=== PATIENT | female | born 1995 | race Caucasian/White ===

== ENCOUNTER 2023-01-16 09:07 | Inpatient (IN) | payer SELFPAY ==
[2023-01-16 09:15] VITALS: BP 115/75; PULSE 140; RESP 19; TEMP 36.6; O2SAT 99; BMI 21.3
--- NOTE | 2023-01-16 09:18 | ECG_ITS ---
Test Reason : tachy Blood Pressure : / mmHG Vent. Rate : 143 BPM Atrial Rate : 143 BPM P-R Int : 126 ms QRS Dur : 078 ms QT Int : 286 ms P-R-T Axes : 062 086 040 degrees QTc Int : 441 ms Sinus tachycardia Otherwise normal ECG No previous ECGs available Referred By: Generic ED Physician Electronically Signed By:CLEMENTE GOMEZ
--- NOTE | 2023-01-16 09:34 | ED.NAVMDI ---
HPI - Nausea/Vomiting/Diarrhea General Chief complaint: Nausea/Vomiting/Diarrhea Stated complaint: vomiting, cant keep anything down Time Seen by Provider: 01/16/23 09:23 Source: patient Mode of arrival: ambulatory Limitations: no limitations History of Present Illness HPI Narrative: patient states she is anxious so its hard to eat. Patient states she is malnourished. Patient drinks alcohol everyday. MD elicited complaint: nausea and vomiting Pertinent past history: cyclical vomiting Onset (ago): day(s) Related Data Allergies Allergy/AdvReac Type Severity Reaction Status Date / Time amoxicillin Allergy Hives Verified 01/16/23 09:14 Penicillins Allergy Hives Verified 01/16/23 09:14 Review of Systems Review of Systems: Yes all other systems are reviewed and are negative Neurologic: Denies Sensory deficit (Neuro) [facility] Social History Social History Smoked in Last 30 Days: No Use of substances other than those prescribed or required for medical reasons: Yes Substance Use Type: Marijuana Substance Use Frequency: Daily Last Used Substance: Hours (ago) Advance Directives: No Advance Directives Information Provided: Yes Physical Exam Vital Signs: Vital Signs: Last Vital Signs Temp 98 F 01/16/23 09:15 Pulse 120 H 01/16/23 14:06 Resp 18 01/16/23 14:06 BP 122/77 01/16/23 14:06 Pulse Ox 99 01/16/23 14:06 O2 Del Method Room Air 01/16/23 14:06 BMI result Body Mass Index 21.3 Const: Other: very thin female anxious and tremulous, wretching Orientation/consciousness: oriented to person and patient oriented x3 Limitations: no limitations HEENT: Head: Yes normal to inspection Ears: external ears normal General nose exam: Normal external nose present Mouth: Normal oral and palatal mucosa present and oropharynx normal Throat: Yes posterior oropharynx normal Eyes: General: appearance normal, both eyes and all related structures Neck: Other: supple Neck: Yes normal visual inspection Chest: Chest palpation & inspection: normal inspection of the chest Resp: Auscultation: clear to auscultation bilaterally Cardio: Jugular venous distension: no JVD Rate: regular rate Rhythm: regular rhythm Heart sounds: S1 normal heart sound present and S2 normal heart sound present GI: Inspection: Yes normal to inspection Palpation (GI): Soft to palpation, nontender and No hepatosplenomegaly present Auscultation: normal bowel sounds : General: Yes no CVA tenderness Back/Spine/Pelvis: Back: no CVA tenderness Skin: General skin exam: no rashes or lesions noted Neuro: General: oriented to person and patient oriented x3 Cranial nerves: Yes CN's II-XII intact bilaterally Motor exam (neuro): 5/5 motor strength present throughout Sensory Exam: No Sensory deficit (Neuro) Extrem: General: Yes normal to inspection Psych: Appearance: grossly normal Course Reevaluation(s) Reevaluation #1: heart rate down to 120, BP is better, patient looks better will give another dose of phenobarbital Time: 14:15 Reevaluation #2: I spent 60 minutes of critical care, with interventions, assessments, speaking to patient, consultants, and family. Time: 14:19 Reevaluation #3: Patient sleeping currently, repeat chem 7 pending. If patient not improved will admit Time: 15:58 Medications Administered Discontinued Medications Generic Name Dose Route Start Last Admin Trade Name Dago PRN Reason Stop Dose Admin Sodium Chloride 1,000 mls @ 999 mls/hr 01/16/23 09:45 01/16/23 14:12 Ns IVCONT 01/16/23 11:45 999 mls/hr .Q1H1M SURYA Administration Ondansetron HCl 4 mg 01/16/23 09:43 01/16/23 11:27 Ondansetron Hcl 4 Mg/2 Ml Vial IVPUSH 01/16/23 09:44 4 mg ONCE ONE Administration Phenobarbital Sodium 65 mg 01/16/23 09:37 01/16/23 11:28 Phenobarbital Sodium 65 Mg/Ml Vial IVPUSH 01/16/23 09:38 65 mg ONCE ONE Administration Phenobarbital Sodium 65 mg 01/16/23 14:16 01/16/23 14:34 Phenobarbital Sodium 65 Mg/Ml Vial IVPUSH 01/16/23 14:17 65 mg ONCE ONE Administration Medical Decision Making Differential Diagnosis Differential Diagnoses: The differential diagnosis associated with the presentation includes (alcohol withdrawal, anxiety, cyclical vomiting, anorexia) Admission/Observation Consideration of admission/observation: Escalation of care including admission/observation considered (upon arrival patient was considered for admission) Lab Data MDM Lab Attestation statement: I reviewed the patient's lab results. (elevated wbc likely to due stress, bicarbonate 9, creatinine 1.38 all noted) 01/16/23 09:57 Labs: Lab Results 01/16/23 01/16/23 01/16/23 Range/Units 09:57 09:57 14:09 WBC 18.2 H (4.8-10.8) X10*3/uL RBC 4.83 (4.20-5.50) X10*6/uL Hgb 15.8 (12.0-16.0) g/dl Hct 47.7 H (37.0-47.0) % MCV 98.8 H (80.0-98.0) fL MCH 32.7 (27.0-33.0) pg MCHC 33.1 (31.0-35.0) g/dl RDW 12.6 (11.0-16.0) % Plt Count 224 (160-400) X10*3/uL MPV 9.5 (9.4-12.3) fL Immature Gran % (Auto) 0.7 H (0.0-0.4) % Neut % (Auto) 88.6 H (45-73) % Lymph % (Auto) 2.3 L (20-40) % [place] % (Auto) 8.2 (2-11) % Eos % (Auto) 0.0 (0-4) % Baso % (Auto) 0.2 (0-2) % Lymph # (Auto) 0.4 L (1.2-4.9) X10*3/uL [place] # (Auto) 1.5 H (0.1-1.2) X10*3/uL Eos # (Auto) 0.0 (0.0-0.4) X10*3/uL Baso # (Auto) 0.0 (0.0-0.2) X10*3/uL Abs Immat Gran (auto) 0.12 H (0.00-0.03) X10*3/uL Absolute Neuts (auto) 16.1 H (2.0-8.3) x10*3/uL Absolute Nucleated RBC 0.000 (0.0-0.012) X10*3/uL Nucleated RBC % (auto) 0.0 (0.0-0.2) /100WBC Sodium 138 (135-145) mmol/L Potassium 4.3 (3.3-5.1) mmol/L Chloride 96 (96-108) mmol/L Carbon Dioxide 9 L* (22-29) mmol/L Anion Gap 37 H (12-20) BUN 14 (9-16) mg/dL Creatinine 1.38 (0.5-1.4) mg/dL Estim Creat Clear Calc 50.6 Estimated GFR 46 Random Glucose 160 H (60-115) mg/dL Calcium (8.4-10.2) mg/dL Total Bilirubin 1.2 H (0.0-1.0) mg/dL Direct Bilirubin 0.5 (0.0-0.5) mg/dL AST 145 H (5-31) U/L ALT 122 H (0-31) U/L Alkaline Phosphatase 89 (39-117) U/L Total Protein 9.3 H (6.5-8.0) g/dL Albumin 5.8 H (3.5-5.0) g/dL Lipase 55 (8-78) U/L Urine Color Yellow Urine Appearance Clear Urine pH 6.0 (5.0-9.0) Ur Specific [place] 1.025 (1.005-1.025) Urine Protein 300 (3+) H (Neg-Trace) mg/dL Urine Glucose (UA) Negative (Negative) mg/dL Urine Ketones >=160 (Negative) mg/dL Urine Blood Small (1+) H (Negative) Urine Nitrite Negative (Negative) Ur Leukocyte Esterase Negative (Negative) Urine RBC 0-2 (0-2) /HPF Urine WBC 0-5 (0-5) /HPF Ur Squamous Epith Cells 0-2 (0-2) /HPF Urine Bacteria None Seen (None Seen) Hyaline Casts 11-20 (0-2) /LPF Urine Test (NEGATIVE) Urine Opiates Screen (Not Detect) Urine Fentanyl Screen (Not Detect) Ur Barbiturates Screen (Not Detect) Ur Phencyclidine Scrn (Not Detect) Ur Amphetamines Screen (Not Detect) U Benzodiazepines Scrn (Not Detect) Urine Cocaine Screen (Not Detect) U Marijuana (THC) Screen (Not Detect) Ethyl Alcohol < 10 mg/dL 01/16/23 01/16/23 01/16/23 Range/Units 14:09 14:09 15:26 WBC (4.8-10.8) X10*3/uL RBC (4.20-5.50) X10*6/uL Hgb (12.0-16.0) g/dl Hct (37.0-47.0) % MCV (80.0-98.0) fL MCH (27.0-33.0) pg MCHC (31.0-35.0) g/dl RDW (11.0-16.0) % Plt Count (160-400) X10*3/uL MPV (9.4-12.3) fL Immature Gran % (Auto) (0.0-0.4) % Neut % (Auto) (45-73) % Lymph % (Auto) (20-40) % [place] % (Auto) (2-11) % Eos % (Auto) (0-4) % Baso % (Auto) (0-2) % Lymph # (Auto) (1.2-4.9) X10*3/uL [place] # (Auto) (0.1-1.2) X10*3/uL Eos # (Auto) (0.0-0.4) X10*3/uL Baso # (Auto) (0.0-0.2) X10*3/uL Abs Immat Gran (auto) (0.00-0.03) X10*3/uL Absolute Neuts (auto) (2.0-8.3) x10*3/uL Absolute Nucleated RBC (0.0-0.012) X10*3/uL Nucleated RBC % (auto) (0.0-0.2) /100WBC Sodium 138 (135-145) mmol/L Potassium 4.9 (3.3-5.1) mmol/L Chloride 107 (96-108) mmol/L Carbon Dioxide 11 L (22-29) mmol/L Anion Gap 25 H (12-20) BUN 12 (9-16) mg/dL Creatinine 1.07 (0.5-1.4) mg/dL Estim Creat Clear Calc 65.3 Estimated GFR > 60 Random Glucose 111 (60-115) mg/dL Calcium 8.8 (8.4-10.2) mg/dL Total Bilirubin (0.0-1.0) mg/dL Direct Bilirubin (0.0-0.5) mg/dL AST (5-31) U/L ALT (0-31) U/L Alkaline Phosphatase (39-117) U/L Total Protein (6.5-8.0) g/dL Albumin (3.5-5.0) g/dL Lipase (8-78) U/L Urine Color Urine Appearance Urine pH (5.0-9.0) Ur Specific [place] (1.005-1.025) Urine Protein (Neg-Trace) mg/dL Urine Glucose (UA) (Negative) mg/dL Urine Ketones (Negative) mg/dL Urine Blood (Negative) Urine Nitrite (Negative) Ur Leukocyte Esterase (Negative) Urine RBC (0-2) /HPF Urine WBC (0-5) /HPF Ur Squamous Epith Cells (0-2) /HPF Urine Bacteria (None Seen) Hyaline Casts (0-2) /LPF Urine Test NEGATIVE (NEGATIVE) Urine Opiates Screen Not Detected (Not Detect) Urine Fentanyl Screen Not Detected (Not Detect) Ur Barbiturates Screen POSITIVE H (Not Detect) Ur Phencyclidine Scrn Not Detected (Not Detect) Ur Amphetamines Screen Not Detected (Not Detect) U Benzodiazepines Scrn Not Detected (Not Detect) Urine Cocaine Screen Not Detected (Not Detect) U Marijuana (THC) Screen POSITIVE H (Not Detect) Ethyl Alcohol mg/dL Independent Interpretation I performed an independent interpretation of an: EKG (sinus tachycardia rate of 140, no st or twave changes) Chronic Conditions Patient?s care impacted by: Other (alcoholism) Social Determinants Patient?s care significantly limited by Social Determinants of Health including: Alcoholism and drug addiction in family Discharge Plan Discharge Clinical Impression: Alcohol withdrawal, Vomiting Patient Disposition: Admitted As Inpatient
[2023-01-16 10:03] LABS: MANUAL DIFF FLAG NO
[2023-01-16 10:07] LABS: Basophils Percent Auto 0.2 % (0-2); Hematocrit 47.7 % (37.0-47.0); Hemoglobin 15.8 g/dl (12.0-16.0); Imm Gran Abs Auto 0.12 X10*3/uL (0.00-0.03); Imm Gran Pct Auto 0.7 % (0.0-0.4); Lymphocytes Absolute Auto 0.4 X10*3/uL (1.2-4.9); Lymphocytes Percent Auto 2.3 % (20-40); Mean Corpuscular HGB Conc 33.1 g/dl (31.0-35.0); Mean Corpuscular Hemoglobin 32.7 pg (27.0-33.0); Mean Corpuscular Volume 98.8 fL (80.0-98.0); Mean Platelet Volume 9.5 fL (9.4-12.3); Monocytes Absolute Auto 1.5 X10*3/uL (0.1-1.2); Monocytes Percent Auto 8.2 % (2-11); Neutrophils Absolute Auto 16.1 x10*3/uL (2.0-8.3); Neutrophils Percent Auto 88.6 % (45-73); Platelet Count 224 X10*3/uL (160-400); Red Blood Count 4.83 X10*6/uL (4.20-5.50); Red Cell Distribution Width 12.6 % (11.0-16.0); White Blood Count 18.2 X10*3/uL (4.8-10.8)
[2023-01-16 10:22] LABS: Alanine Aminotransferase 122 U/L (0-31); Albumin Level 5.8 g/dL (3.5-5.0); Alkaline Phosphatase 89 U/L (39-117); Aspartate Amino Transferase 145 U/L (5-31); Bilirubin Direct 0.5 mg/dL (0.0-0.5); Bilirubin Total 1.2 mg/dL (0.0-1.0); Ethanol < 10 mg/dL; Lipase 55 U/L (8-78); Total Protein 9.3 g/dL (6.5-8.0)
[2023-01-16] MEDS: 0.9 % Sodium Chloride 1,000 ML 999 ML IVCONT ×2 (11:27→14:12)
[2023-01-16] MEDS: ondansetron HCL 4 MG/2 ML VIAL IVPUSH (11:27)
[2023-01-16] MEDS: PHENobarbitaL sodium 65 MG/ML VIAL IVPUSH ×3 (11:28→16:46)
[2023-01-16 14:06] VITALS: BP 122/77; PULSE 120; RESP 18; O2SAT 99
[2023-01-16 14:15] LABS: Appearance Urine Clear; Color Urine Yellow; Glucose Urine UA Negative (Negative); Leukocyte Esterase Urine Negative (Negative); Nitrite Urine Negative (Negative); Specific Gravity - Urine 1.025 (1.005-1.025); UMIC TRIGGER UACC YES; Urine Blood Small (1+) (Negative); Urine Ketones >=160 mg/dL (Negative); Urine Protein 300 (3+) mg/dL (Neg-Trace)
[2023-01-16 14:17] LABS: UPreg QC Valid YES; Urine Pregnancy NEGATIVE (NEGATIVE)
[2023-01-16 14:24] LABS: Amphetamine Screen Urine Not Detected (Not Detect); Barbiturates, Urine POSITIVE (Not Detect); Benzodiazepines Screen Urine Not Detected (Not Detect); Cannabinoid Screen Urine POSITIVE (Not Detect); Cocaine Screen Urine Not Detected (Not Detect); Fentanyl, urine Not Detected (Not Detect); Opiate Screen Urine Not Detected (Not Detect); Phencyclidine Screen Urine Not Detected (Not Detect)
[2023-01-16 14:29] LABS: Bacteria Urine None Seen (None Seen); RBC Urine 0-2 /HPF (0-2); Squamous Epithelial Cell Urine 0-2 /HPF (0-2); WBC Urine 0-5 /HPF (0-5)
[2023-01-16 15:04] LABS: Anion Gap 37 (12-20); Blood Urea Nitrogen 14 mg/dL (9-16); Carbon Dioxide 9 mmol/L (22-29); Chloride 96 mmol/L (96-108); Creatinine Clr Calc Pharmacy 50.6; Estimated Glomerular Filt Rate 46; Glucose Random 160 mg/dL (60-115); Potassium 4.3 mmol/L (3.3-5.1); Sodium 138 mmol/L (135-145)
[2023-01-16 16:00] LABS: Anion Gap 25 (12-20); Blood Urea Nitrogen 12 mg/dL (9-16); Calcium 8.8 mg/dL (8.4-10.2); Carbon Dioxide 11 mmol/L (22-29); Chloride 107 mmol/L (96-108); Creatinine Clr Calc Pharmacy 65.3; Estimated Glomerular Filt Rate > 60; Glucose Random 111 mg/dL (60-115); Potassium 4.9 mmol/L (3.3-5.1); Sodium 138 mmol/L (135-145)
[2023-01-16] MEDS: Pantoprazole Sodium 40 MG/10 ML VIAL IVPUSH (16:45)
[2023-01-16 18:11] VITALS: BP 124/79; PULSE 125; RESP 16; O2SAT 100
--- NOTE | 2023-01-16 18:53 | PHA.MEDREC ---
Pharmacy Consult ? Medication Reconciliation Pharmacy has completed the medication reconciliation. Patient only takes OTCs
--- NOTE | 2023-01-16 18:57 | P.HPHOSP_ITS ---
History of Present Illness Date of Service: 01/16/23 Chief Complaint: Nausea and vomiting 27-year-old female presents with nausea and vomiting over the past several days; admits to 6 shots of alcohol (at least) daily. Has not drank for the last 48 hours. In the emergency room was found to be tachycardic and tremulous given phenobarbital with good response. No witnessed seizure activity Review of Systems Review of Systems: Denies chest pain Denies shortness of breath Denies fever chills Admits that vomiting with subsequent abdominal pain PMFSH Social History Smoked in Last 30 Days: No Use of substances other than those prescribed or required for medical reasons: Yes Substance Use Type: Marijuana Substance Use Frequency: Daily Last Used Substance: Hours (ago) Advance Directives: No Advance Directives Information Provided: Yes Meds Allergies Allergy/AdvReac Type Severity Reaction Status Date / Time amoxicillin Allergy Hives Verified 01/16/23 09:14 Penicillins Allergy Hives Verified 01/16/23 09:14 Active Medications: Current Medications Acetaminophen (Acetaminophen 325 Mg Tablet) 650 mg PO Q6H PRN PRN Reason: Pain, Mild (Pain Scale 1-3) Ondansetron HCl (Ondansetron Hcl 4 Mg/2 Ml Vial) 4 mg IVPUSH Q8H PRN PRN Reason: Nausea and Vomiting Pharmacy Consult (Consult Rx Etoh Phenob Im/Po) 1 each MISCELLANE ONCE PRN; Protocol PRN Reason: Consult order Sodium Chloride (0.9 % Sodium Chloride Flush 3 Ml Syringe) 3 ml IVFLUSH [facility] Medications Medication Instructions Recorded Confirmed Last Taken Type Probiotic 1 cap PO DAILY 01/16/23 01/16/23 Unknown History ferrous fumarate-ascorbic 1 tab PO DAILY 01/16/23 01/16/23 Unknown History acid-ascorbate sod 65 mg iron-125 mg tablet Physical Exam Vital Signs and Narrative: Vital Signs: Last Vital Signs Temp 98 F 01/16/23 09:15 Pulse 125 H 01/16/23 18:11 Resp 16 01/16/23 18:11 BP 124/79 01/16/23 18:11 Pulse Ox 100 01/16/23 18:11 O2 Del Method Room Air 01/16/23 18:11 BMI result Body Mass Index 21.3 Const: Other: Awake anxious no acute distress Resp: Other: Clear to auscultation bilaterally no rales rhonchi or wheezes Cardio: Other: No S4; positive S1-S2; no S3 murmurs rubs or gallops GI: Other: Soft minimal tenderness about mid epigastrium normal active bowel sounds. No acute peritoneal signs Neuro: Other: Cranial nerves 2-12 grossly intact as tested. Motor is 5/5 all extremities. Sensation is intact. Cognition appropriate Extrem: Other: No edema bilaterally Results Labs 01/16/23 09:57 01/16/23 15:26 Labs: Laboratory Results - last 24 hr 01/16/23 01/16/23 01/16/23 09:57 09:57 14:09 MCV 98.8 H MCH 32.7 MCHC 33.1 RDW 12.6 Plt Count 224 MPV 9.5 Immature Gran % (Auto) 0.7 H Neut % (Auto) 88.6 H Lymph % (Auto) 2.3 L [place] % (Auto) 8.2 Eos % (Auto) 0.0 Baso % (Auto) 0.2 Lymph # (Auto) 0.4 L [place] # (Auto) 1.5 H Eos # (Auto) 0.0 Baso # (Auto) 0.0 Abs Immat Gran (auto) 0.12 H Absolute Neuts (auto) 16.1 H Absolute Nucleated RBC 0.000 Nucleated RBC % (auto) 0.0 Anion Gap 37 H Estim Creat Clear Calc 50.6 Estimated GFR 46 Random Glucose 160 H Calcium Total Bilirubin 1.2 H Direct Bilirubin 0.5 AST 145 H ALT 122 H Alkaline Phosphatase 89 Total Protein 9.3 H Albumin 5.8 H Lipase 55 Urine Color Yellow Urine Appearance Clear Urine pH 6.0 Ur Specific [place] 1.025 Urine Protein 300 (3+) H Urine Glucose (UA) Negative Urine Ketones >=160 Urine Blood Small (1+) H Urine Nitrite Negative Ur Leukocyte Esterase Negative Urine RBC 0-2 Urine WBC 0-5 Ur Squamous Epith Cells 0-2 Urine Bacteria None Seen Hyaline Casts 11-20 Urine Test Urine Opiates Screen Urine Fentanyl Screen Ur Barbiturates Screen Ur Phencyclidine Scrn Ur Amphetamines Screen U Benzodiazepines Scrn Urine Cocaine Screen U Marijuana (THC) Screen Ethyl Alcohol < 10 01/16/23 01/16/23 01/16/23 14:09 14:09 15:26 MCV MCH MCHC RDW Plt Count MPV Immature Gran % (Auto) Neut % (Auto) Lymph % (Auto) [place] % (Auto) Eos % (Auto) Baso % (Auto) Lymph # (Auto) [place] # (Auto) Eos # (Auto) Baso # (Auto) Abs Immat Gran (auto) Absolute Neuts (auto) Absolute Nucleated RBC Nucleated RBC % (auto) Anion Gap 25 H Estim Creat Clear Calc 65.3 Estimated GFR > 60 Random Glucose 111 Calcium 8.8 Total Bilirubin Direct Bilirubin AST ALT Alkaline Phosphatase Total Protein Albumin Lipase Urine Color Urine Appearance Urine pH Ur Specific [place] Urine Protein Urine Glucose (UA) Urine Ketones Urine Blood Urine Nitrite Ur Leukocyte Esterase Urine RBC Urine WBC Ur Squamous Epith Cells Urine Bacteria Hyaline Casts Urine Test NEGATIVE Urine Opiates Screen Not Detected Urine Fentanyl Screen Not Detected Ur Barbiturates Screen POSITIVE H Ur Phencyclidine Scrn Not Detected Ur Amphetamines Screen Not Detected U Benzodiazepines Scrn Not Detected Urine Cocaine Screen Not Detected U Marijuana (THC) Screen POSITIVE H Ethyl Alcohol Assessment and Plan (1) Alcohol withdrawal: Status: Acute Plan 27-year-old female presents with nausea and vomiting proximally 48 hours after her last drink. Admits to drinking 6 nips per day. No noted seizure activity 1. Alcohol withdrawal -CIWA protocol; phenobarbital protocol -LR at 125 an hour -seizure precautions -consult addiction Medicine Full code Ambulation Patient will require at least 2 midnights inpatient stay going forward to treat alcohol withdrawal. This cannot be achieved a lesser acute setting Time Spent With Patient Time: Total time managing care of this patient today ____ minutes. Quality Stroke Does the patient have a stroke diagnosis?: No VTE Prior VTE?: No VTE Risk Level:: Medical - low VTE Device Contraindication: Treatment Not Indicated VTE Drug Contraindication: Treatment Not Indicated
[2023-01-16] MEDS: Lactated Ringers 1,000 ML 125 ML IVCONT (20:28)
[2023-01-16] MEDS: PHENobarbitaL sodium 130 MG/ML VIAL IM Q3Hx2 157 MG IM ×2 (20:35→23:55)
[2023-01-16 23:07] VITALS: BP 117/75; PULSE 116; RESP 18; TEMP 36.9; O2SAT 98
[2023-01-17 06:03] VITALS: BP 114/73; PULSE 101; RESP 18; TEMP 37.3; O2SAT 98
[2023-01-17 06:18] LABS: Alanine Aminotransferase 75 U/L (0-31); Albumin Level 4.6 g/dL (3.5-5.0); Alkaline Phosphatase 65 U/L (39-117); Anion Gap 19 (12-20); Aspartate Amino Transferase 92 U/L (5-31); Bilirubin Total 0.8 mg/dL (0.0-1.0); Blood Urea Nitrogen 8 mg/dL (9-16); Calcium 8.8 mg/dL (8.4-10.2); Carbon Dioxide 15 mmol/L (22-29); Chloride 106 mmol/L (96-108); Creatinine Clr Calc Pharmacy 71.3; Estimated Glomerular Filt Rate > 60; Glucose Random 92 mg/dL (60-115); Sodium 136 mmol/L (135-145); Total Protein 7.3 g/dL (6.5-8.0)
[2023-01-17 06:26] LABS: MANUAL DIFF FLAG NO
[2023-01-17 06:35] LABS: Basophils Percent Auto 0.3 % (0-2); Hemoglobin 12.9 g/dl (12.0-16.0); Imm Gran Abs Auto 0.08 X10*3/uL (0.00-0.03); Imm Gran Pct Auto 0.5 % (0.0-0.4); Lymphocytes Absolute Auto 0.6 X10*3/uL (1.2-4.9); Lymphocytes Percent Auto 3.6 % (20-40); Mean Corpuscular HGB Conc 32.3 g/dl (31.0-35.0); Mean Corpuscular Volume 99.3 fL (80.0-98.0); Mean Platelet Volume 9.9 fL (9.4-12.3); Monocytes Absolute Auto 1.5 X10*3/uL (0.1-1.2); Monocytes Percent Auto 9.6 % (2-11); Neutrophils Absolute Auto 13.5 x10*3/uL (2.0-8.3); Platelet Count 169 X10*3/uL (160-400); Red Blood Count 4.03 X10*6/uL (4.20-5.50); Red Cell Distribution Width 12.6 % (11.0-16.0); White Blood Count 15.7 X10*3/uL (4.8-10.8)
[2023-01-17] MEDS: Lactated Ringers 1,000 ML 125 ML IVCONT (08:07)
[2023-01-17] MEDS: Omeprazole 40 MG CAPSULE.DR PO (08:07)
[2023-01-17] MEDS: 0.9 % Sodium Chloride Flush 3 ML SYRINGE IVFLUSH (08:08)
[2023-01-17 09:14] VITALS: BMI 21.7
[2023-01-17] MEDS: PHENobarbitaL 15 MG TABLET 45 MG PO (09:26)
[2023-01-17 09:30] VITALS: BP 117/77; PULSE 92; RESP 20; TEMP 36.6; O2SAT 100
--- NOTE | 2023-01-17 09:52 | MHC.CM.PN ---
Pt admitted with ETOH withdrawal. Pt lives at home with her boyfriend and is independent/self-care. D/C plan to return home self-care when medically cleared. Pts boyfriend can transport depending on the time of day. Anticipating CARE team to see pt. Pt states she has no PCP or insurance and was given the financial counselors card and will be trying to set up [employer]
[2023-01-17 11:27] VITALS: BP 129/81; PULSE 92; RESP 17; TEMP 36.2; O2SAT 100
--- NOTE | 2023-01-17 11:52 | MHC.RECOVRN ---
Addendum entered by Chantelle Riojas RN 01/17/23 16:11: Resources provided to patient, harm reduction information provided, pt encouraged to call the [facility] with any questons. Pt verbalized understanding. Original Note: In to meet with pt for recovery team consult. Pt reports daily etoh consumption 3-5 shots. Pt reports she was hiding her use from her boyfriend. Pt reports she drinks ETOH to calm her anxiety and that she doesn't enjoy it . Pt reports family hx of alcoholism. Endorses symptoms of N/V/indegestion. Denies ever using medications to abstain or participating in any detox or rehab programs. Pt states her goal is to stop drinking. Pt educated on harm reduction techniques pertaining to drinking. Plan to follow up with resources.
--- NOTE | 2023-01-17 15:13 | PM.DS ---
DS: Providers Provider Date of Service: 01/17/23 Date of admission: 01/16/23 18:48 Date of discharge: 01/17/23 Primary care physician: None Physician Consults: 01/16/23 19:02 Addiction Medicine Routine Consulting Provider: Stefanie Santillan Reason for consultation: EToH Has provider been notified: No DS: Diagnosis Discharge Diagnosis (1) Alcohol withdrawal: Status: Acute DS: Summary Hospital Course Hospital Course: 27-year-old female presents with nausea and vomiting over the past several days; admits to 6 shots of alcohol (at least) daily.? Has not drank for the last 48 hours.? In the emergency room was found to be tachycardic and tremulous given phenobarbital with good response.? No witnessed seizure activity [facility] Admitted to telemetry where CIWA score was never greater than 1. When further queried patient recounted the same story with amounts of alcohol not changing. She states she does not drink every day. Given clinical presentation unclear if this was actually alcohol withdrawal however patient was seen by the addiction Medicine team given options for outpatient follow-up. At this point time she is medically acceptable to return to home and can follow up with PCP next available appointment Time Spent with Patient Time attestation: Total time managing care of this patient today ____ minutes. Discharge coordination time: Greater than 30 minutes Quality: Safe Use of Opioids Does Pt have an Active Cancer Diagnosis on the Problem List?: No Quality: Stroke Does the patient have a stroke diagnosis?: No Physical Exam Vital Signs: Vital Signs: Last Vital Signs Temp 97.1 F 01/17/23 11:27 Pulse 92 01/17/23 11:27 Resp 17 01/17/23 11:27 BP 129/81 01/17/23 11:27 Pulse Ox 100 01/17/23 11:27 O2 Del Method Room Air 01/17/23 11:27 BMI result Body Mass Index 21.7 Const: Other: Awake anxious no acute distress Resp: Other: Clear to auscultation bilaterally no rales rhonchi or wheezes Cardio: Other: No S4; positive S1-S2; no S3 murmurs rubs or gallops GI: Other: Soft minimal tenderness about mid epigastrium normal active bowel sounds. No acute peritoneal signs Neuro: Other: Cranial nerves 2-12 grossly intact as tested. Motor is 5/5 all extremities. Sensation is intact. Cognition appropriate Extrem: Other: No edema bilaterally DS: Data Data Completed and Pending Labs on day of discharge: Laboratory Results - last 24 hr 01/16/23 01/17/23 01/17/23 15:26 05:11 05:16 WBC 15.7 H RBC 4.03 L Hgb 12.9 Hct 40.0 MCV 99.3 H MCH 32.0 MCHC 32.3 RDW 12.6 Plt Count 169 MPV 9.9 Immature Gran % (Auto) 0.5 H Neut % (Auto) 86.0 H Lymph % (Auto) 3.6 L [place] % (Auto) 9.6 Eos % (Auto) 0.0 Baso % (Auto) 0.3 Lymph # (Auto) 0.6 L [place] # (Auto) 1.5 H Eos # (Auto) 0.0 Baso # (Auto) 0.0 Abs Immat Gran (auto) 0.08 H Absolute Neuts (auto) 13.5 H Absolute Nucleated RBC 0.000 Nucleated RBC % (auto) 0.0 Sodium 138 136 Potassium 4.9 4.0 Chloride 107 106 Carbon Dioxide 11 L 15 L Anion Gap 25 H 19 BUN 12 8 L Creatinine 1.07 0.98 Estim Creat Clear Calc 65.3 71.3 Estimated GFR > 60 > 60 Random Glucose 111 92 Calcium 8.8 8.8 Total Bilirubin 0.8 AST 92 H ALT 75 H Alkaline Phosphatase 65 Total Protein 7.3 Albumin 4.6 Discharge Plan Discharge Anticipated Discharge Date/Time: 01/17/23 15:11 Patient Disposition: Home, Self-Care Discharge Diagnosis: Alcohol withdrawal Referrals: Physician,None [Primary Care Provider] - 1 Week Discharge Medications: New omeprazole 40 mg Capsule,Delayed Release(Dr/Ec) 40 mg PO DAILY@0630 Qty: 30 0RF Continued iron fum-vit C-ascorbate sod 65 mg iron- 125 mg Tablet 1 tab PO DAILY Probiotic 1 cap PO DAILY Discharge Orders: Discharge Order (Routine); Ordered 01/17/23 Ordered By: Vicente Goddard Diet: Advance to usual diet Activity on Discharge: As tolerated Stand Alone Forms: Patient Portal Discharge page Care Plan Goals: Avoid alcohol at all costs Health Concerns: Make arrangements to follow up with new PCP Plan of Treatment: Continue omeprazole 40 mg daily Assessment: See discharge summary
--- NOTE | 2023-01-17 15:22 | MHC.CM.PN ---
PT MEDICALLY CLEARED FOR D/C HOME SELF-CARE W/BOYFRIEND FOR TRANSPORT.
== END 2023-01-17 16:10 | disposition home or self-care (01) | DRG 897 ==
LOC: HO.ED 16:06 → HO.EDOVER 20:32 → HO.IMC 01-17 07:31
PROVIDERS: Admitting Provider Hospitalist; Emergency Provider Emergency Medicine; Visit Provider Hospitalist
DX: F10.939 Alcohol use, unspecified with withdrawal, unspecified (principal); R11.2 Nausea with vomiting, unspecified; Z88.0 Allergy status to penicillin; Z79.899 Other long term (current) drug therapy
CPT/HCPCS: 36415; 80048; 80051; 80053; 80076; 80307; 81001; 81025; 82565; 82947; 83690; 84520; 85025; 93005; 99285; J2405; J2560

== ENCOUNTER → 2023-01-16 09:46 | Outpatient (BNV) | payer SELFPAY | PROVIDERS: Emergency Provider Emergency Medicine; Visit Provider Hospitalist | DX: F10.939 Alcohol use, unspecified with withdrawal, unspecified (principal) | CPT/HCPCS: 99222; 99239 ==

== ENCOUNTER 2023-03-21 02:44 | Inpatient (IN) | payer SELFPAY ==
[2023-03-21] VITALS (18 sets, daily range): BP systolic 109–151; BP diastolic 50–97; PULSE 117–160; RESP 13–38; TEMP 36.1–37.5; O2SAT 96–100; BMI 21.3
--- NOTE | ~2023-03-21 | CT_ITS ---
EXAMINATION: CT CHEST, ABDOMEN AND PELVIS WITH CONTRAST CLINICAL INFORMATION: Leukocytosis. COMPARISON: None TECHNIQUE: Multidetector volumetric imaging was performed of the chest, abdomen and pelvis following administration of 85 mL Omnipaque 300 intravenous contrast. Oral contrast was administered. Sagittal and coronal reformatted images were obtained on the technologist's workstation. This CT examination was performed using dose optimization techniques as appropriate, variously including the following: *Automated exposure control *Adjustment of mA and/or kV according to patient size (this includes techniques or standardized protocols for targeted exams where dose is matched to indication/reason for exam; i.e. extremities or head) *Use of iterative reconstruction technique DLP: 366.07 mGy-cm FINDINGS: CHEST: CHEST WALL: No acute abnormality. AXILLA: No lymphadenopathy. MEDIASTINUM: Heart is normal in size. No mediastinal lymphadenopathy. No hilar lymphadenopathy. Marked esophageal wall thickening and submucosal edema. CORONARY ARTERY CALCIFICATION: No significant coronary artery calcification appreciated on this exam. PLEURA: There is no pleural effusion. LUNGS: No suspicious pulmonary nodule. No focal consolidation. Central airways are patent. ABDOMEN AND PELVIS: ABDOMINAL AND PELVIC WALL: Unremarkable. LIVER AND BILIARY TREE: Hypoattenuating hepatic parenchyma suggestive of hepatic steatosis. No focal hepatic lesion. No biliary ductal dilatation. GALLBLADDER: Unremarkable. PANCREAS: No ductal dilatation. SPLEEN: Not enlarged. ADRENAL GLANDS: No adrenal mass. KIDNEYS AND URETERS: The kidneys are symmetric in size and enhancement. No hydronephrosis or perinephric fluid collection. GASTROINTESTINAL TRACT: Marked fecal impaction in the rectosigmoid colon. Wall thickening of the cecum through the descending colon. No small bowel obstruction. VASCULAR: Normal caliber abdominal aorta. LYMPH NODES: No bulky abdominal or pelvic lymphadenopathy. FREE FLUID: No free fluid. BLADDER: Unremarkable. PELVIC VISCERA: Uterus is anteverted. Involuting corpus luteum in the right ovary. OSSEOUS STRUCTURES: No destructive bone lesions. CT/CT abdomen pelvis w IV con IMPRESSION: Marked esophageal wall thickening and submucosal edema. This may represent esophagitis. Wall thickening of the cecum through the descending colon. This may represent colitis. Marked fecal impaction in the rectosigmoid colon. Hepatic steatosis.
[2023-03-21] MEDS: 0.9 % Sodium Chloride 1,000 ML 999 ML IV ×2 (03:45→06:58)
[2023-03-21] MEDS: ondansetron HCL 4 MG/2 ML VIAL IVPUSH ×2 (03:45→07:27)
--- NOTE | 2023-03-21 03:59 | ED_ITS ---
HPI - Alcohol General Chief Complaint: ETOH/Substance Use Stated Complaint: Vomiting Time Seen by Provider: 03/21/23 03:20 Source: patient Mode of arrival: ambulatory History of Present Illness HPI narrative: 27-year-old female presents with nausea and vomiting since before 17:00 as matter fact for the past couple of days but states that she only has 2-3 drinks every other day and she last attempted to consume alcohol at approximately noon yesterday. Patient states that she does not feel like she has a problem and is not currently interested in detox. Patient reports she has had seizures related with any withdrawing symptoms but she does not feel like she is withdrawing. Related Data Home Medications Medication Instructions Recorded Confirmed Probiotic 1 cap PO DAILY 01/16/23 01/16/23 ferrous fumarate-ascorbic 1 tab PO DAILY 01/16/23 01/16/23 acid-ascorbate sod 65 mg iron-125 mg tablet Previous Rx's Medication Instructions Recorded omeprazole 40 mg capsule,delayed 40 mg PO DAILY@0630 #30 caps 01/17/23 release Allergies Allergy/AdvReac Type Severity Reaction Status Date / Time amoxicillin Allergy Hives Verified 01/16/23 09:14 Penicillins Allergy Hives Verified 01/16/23 09:14 Review of Systems 2 Review of Systems: Pertinent positives and negatives as stated in HPI [facility] Past Medical History Source: nursing notes reviewed Social History Social History Household Members: Other Household Members Other:: boyfriend Housing: House Do you presently have visiting nurse or other home services: No Patient Tobacco Use Status: Never used Tobacco Substance Use Type: Marijuana Advance Directives: No Advance Directives Information Provided: Yes service: No Physical Exam ED Vital Signs: Vital Signs - 24 hr 03/21/23 02:50 Temperature 97.6 F Pulse Rate 134 H Respiratory Rate 30 H Blood Pressure 131/84 Pulse Oximetry 96 Oxygen Delivery Method Room Air BMI result Body Mass Index 21.3 VITAL SIGNS: Reviewed. GENERAL: Well developed, in moderate distress. HEAD: Normocephalic/atraumatic EYES: PERRLA, EOMI EARS: Ext canals without abnormality, TMs non-bulging and non-erythematous NOSE: Nares patent bilateral OROPHARYNX: no oral lesions noted, posterior pharynx clear and non-erythematous without noted tonsillar enlargement/erythema/exudates NECK: Supple, no adenopathy LUNGS: Normal breath sounds. No adventitious sounds or accessory muscle use. SpO2<96> CARDIOVASCULAR: Regular rate and rhythm without noted murmurs ABDOMEN: Soft, non-tender, non-distended with bowel sounds. MUSCULOSKELETAL: No tenderness, deformities, or effusions noted on gross inspection. EXTREMITIES: No cyanosis, clubbing or edema. SKIN: Inspection of the skin reveals no rashes NEUROLOGIC: Alert and oriented x 4. Strength and sensation to light touch were grossly intact x 4. Medical Decision Making Medical Decision Making [facility] Narrative: 0345: 27-year-old female with history and clinical presentation, DDX: Alcoholic gastritis, pancreatitis, withdrawal, alcohol abuse disorder. Patient currently nauseous and vomiting and will receive IV fluids as well as antiemetics. 0435: I reviewed all investigations and although hematologic indices demonstrated leukocytosis I doubt that this is secondary to an infectious process and suspect that this is primarily due to stress and hemoconcentration from persistent nausea and vomiting over days. There is no thrombocytopenia and patient has a macrocytosis without anemia. I placed an order for lactic acid and blood cultures and proceeded with ordering antibiotics. Chemistry indices do not demonstrate an ERIK there is no electrolyte abnormalities but there is a chronically elevated transaminases. However, patient demonstrates an anion gap metabolic acidosis that suspect is secondary to alcohol and likely lactic acid. 0452: Initially, plan was to admit to the floor, but given the significant ketoacidosis will discuss with the facility mechanic. 0458: I discussed the case with Dr. Lange who accepts admission. 0515: Patient initially declining admission, but after discussion regarding risks and benefits she has agreed to admission. VBG pH-7.06 and patient will be receiving 1 amp of bicarb. Her lactic acid is noted to be 10.7. Differential Diagnosis Differential Diagnoses: The differential diagnosis associated with the presentation includes Please see the discussion above Admission/Observation Consideration of admission/observation: Escalation of care including admission/observation considered Please see the discussion above Consult Healthcare Provider Management of the patient was discussed with: Hospitalist Please see the discussion above Lab Data [facility] Lab Attestation statement: I reviewed the patient's lab results. Please see the discussion above 03/21/23 04:13 03/21/23 04:13 Labs: Lab Results 03/21/23 Range/Units 04:13 WBC 26.1 H (4.8-10.8) X10*3/uL RBC 4.69 (4.20-5.50) X10*6/uL Hgb 15.1 (12.0-16.0) g/dl Hct 47.6 H (37.0-47.0) % MCV 101.5 H (80.0-98.0) fL MCH 32.2 (27.0-33.0) pg MCHC 31.7 (31.0-35.0) g/dl RDW 12.8 (11.0-16.0) % Plt Count 265 D (160-400) X10*3/uL MPV 9.2 L (9.4-12.3) fL Absolute Nucleated RBC 0.000 (0.0-0.012) X10*3/uL Nucleated RBC % (auto) 0.0 (0.0-0.2) /100WBC Sodium 140 (135-145) mmol/L Potassium 3.9 (3.3-5.1) mmol/L Chloride 97 (96-108) mmol/L Carbon Dioxide 6 L* D (22-29) mmol/L Anion Gap 41 H (12-20) BUN 10 (9-16) mg/dL Creatinine 0.92 (0.5-1.4) mg/dL Estim Creat Clear Calc 75.9 Estimated GFR > 60 Random Glucose 88 (60-115) mg/dL Calcium 10.0 D (8.4-10.2) mg/dL Total Bilirubin 0.5 (0.0-1.0) mg/dL AST 147 H (5-31) U/L ALT 98 H (0-31) U/L Alkaline Phosphatase 105 (39-117) U/L Total Protein 10.2 H (6.5-8.0) g/dL Albumin 6.3 H (3.5-5.0) g/dL Lipase 30 (8-78) U/L Beta-Hydroxybutyrate 8.12 H (0.02-0.27) mmol/L Ethyl Alcohol 210 mg/dL Independent Interpretation I performed an independent interpretation of an: EKG Interpretation: Sinus tachycardia, HR-146, no STEMI, NC/QRS/QTC are within normal limits. External Record Review External record reviewed: Inpatient record, Outpatient record and Prior outpatient labs Chronic Conditions Patient?s care impacted by: Other Alcohol abuse disorder Medications Administered Discontinued Medications Generic Name Dose Route Start Last Admin Trade Name Dago PRN Reason Stop Dose Admin Sodium Chloride 1,000 mls @ 999 mls/hr 03/21/23 03:30 03/21/23 03:45 Ns IV 03/21/23 04:30 999 mls/hr .Q1H1M SURYA Administration Thiamine HCl 100 mg/ Sodium 101 mls @ 202 mls/hr 03/21/23 04:30 03/21/23 04:52 Chloride IV 03/21/23 04:59 202 mls/hr ONCE ONE Administration Cefepime HCl 1 gm/ Sodium 50 mls @ 100 mls/hr 03/21/23 04:35 03/21/23 04:54 Chloride IV 03/21/23 05:04 100 mls/hr ONCE ONE Administration Ondansetron HCl 4 mg 03/21/23 03:42 03/21/23 03:45 Ondansetron Hcl 4 Mg/2 Ml Vial IVPUSH 03/21/23 03:43 4 mg ONCE ONE Administration Phenobarbital Sodium 250 mg 03/21/23 04:30 03/21/23 04:52 Phenobarbital Sodium 130 Mg/Ml Im Once IM 03/21/23 04:31 250 mg ONCE ONE Administration Protocol Prochlorperazine Edisylate 10 mg 03/21/23 05:12 03/21/23 05:16 Prochlorperazine Edisylate 10 Mg/2 Ml Vial IVPUSH 03/21/23 05:13 10 mg ONCE ONE Administration Procedures EJ/Peripheral Line Arm L: Time Out Performed: No Skin Cleansed in Sterile Fashion: Yes Size (gauge): 20 IV Secured and Dressing Applied: Yes Patient Tolerated Procedure: well Additional Comments: Peripheral line was placed under ultrasound guidance. Critical Care Time Critical Care Time Critical Care Time: Yes Total Critical Care Time: 60 Attestation: I personally attest to this time spent taking care of the patient. Discharge Plan Discharge Clinical Impression: Alcoholic intoxication, Alcohol withdrawal syndrome, Alcoholic gastritis, Dehydration, Alcoholic ketoacidosis Patient Disposition: Admitted As Inpatient
[2023-03-21 04:21] LABS: Hematocrit 47.6 % (37.0-47.0); Hemoglobin 15.1 g/dl (12.0-16.0); Mean Corpuscular HGB Conc 31.7 g/dl (31.0-35.0); Mean Corpuscular Hemoglobin 32.2 pg (27.0-33.0); Mean Corpuscular Volume 101.5 fL (80.0-98.0); Mean Platelet Volume 9.2 fL (9.4-12.3); Platelet Count 265 X10*3/uL (160-400); Red Blood Count 4.69 X10*6/uL (4.20-5.50); Red Cell Distribution Width 12.8 % (11.0-16.0); White Blood Count 26.1 X10*3/uL (4.8-10.8)
--- NOTE | 2023-03-21 04:32 | P.HPHOSP_ITS ---
History of Present Illness Date of Service: 03/21/23 [facility] Social History Household Members: Other Household Members Other:: boyfriend Housing: House Do you presently have visiting nurse or other home services: No Patient Tobacco Use Status: Never used Tobacco Substance Use Type: Marijuana Advance Directives: No Advance Directives Information Provided: Yes service: No Meds Allergies Allergy/AdvReac Type Severity Reaction Status Date / Time amoxicillin Allergy Hives Verified 01/16/23 09:14 Penicillins Allergy Hives Verified 01/16/23 09:14 Active Medications: Current Medications Pharmacy Consult (Consult Rx Etoh Phenob Im/Po) 1 each MISCELLANE ONCE PRN; Protocol PRN Reason: Consult order Phenobarbital Sodium (Phenobarbital Sodium 130 Mg/Ml Vial Im Q3hx2) 187 mg IM Q3H SURYA; Protocol Stop: 03/21/23 10:31 Home Medications Medication Instructions Recorded Confirmed Last Taken Type Probiotic 1 cap PO DAILY 01/16/23 01/16/23 Unknown History ferrous fumarate-ascorbic 1 tab PO DAILY 01/16/23 01/16/23 Unknown History acid-ascorbate sod 65 mg iron-125 mg tablet Physical Exam 2 Vital Signs and Narrative: Vital Signs: Last Vital Signs Temp 97.6 F 03/21/23 02:50 Pulse 134 H 03/21/23 02:50 Resp 30 H 03/21/23 02:50 BP 131/84 03/21/23 02:50 Pulse Ox 96 03/21/23 02:50 O2 Del Method Room Air 03/21/23 02:50 BMI result Body Mass Index 21.3 Results Labs 03/21/23 04:13 03/21/23 04:13 Assessment and Plan Time Spent With Patient Time: Total time managing care of this patient today ____ minutes. Quality VTE VTE Risk Level:: Medical - moderate - high VTE Device Contraindication: Treatment Not Indicated VTE Drug Contraindication: N/A - Med Ordered
[2023-03-21 04:40] LABS: Alanine Aminotransferase 98 U/L (0-31); Albumin Level 6.3 g/dL (3.5-5.0); Alkaline Phosphatase 105 U/L (39-117); Anion Gap 41 (12-20); Aspartate Amino Transferase 147 U/L (5-31); Bilirubin Total 0.5 mg/dL (0.0-1.0); Blood Urea Nitrogen 10 mg/dL (9-16); Carbon Dioxide 6 mmol/L (22-29); Chloride 97 mmol/L (96-108); Creatinine Clr Calc Pharmacy 75.9; Estimated Glomerular Filt Rate > 60; Ethanol 210 mg/dL; Glucose Random 88 mg/dL (60-115); Lipase 30 U/L (8-78); Potassium 3.9 mmol/L (3.3-5.1); Sodium 140 mmol/L (135-145); Total Protein 10.2 g/dL (6.5-8.0)
[2023-03-21] MEDS: Thiamine HCL 100 MG in 0.9 % Sodium Chloride 100 ML 202 MG IV ×2 (04:52→10:02)
[2023-03-21] MEDS: PHENobarbitaL sodium 130 MG/ML IM ONCE 250 MG IM (04:52)
[2023-03-21] MEDS: cefEPime HCl 1 GM in 0.9 % Sodium Chloride 50 ML IV (04:54)
--- NOTE | 2023-03-21 05:00 | ECG_ITS ---
Test Reason : METABOLIC ACIDOSIS Blood Pressure : / mmHG Vent. Rate : 146 BPM Atrial Rate : 146 BPM P-R Int : 122 ms QRS Dur : 090 ms QT Int : 274 ms P-R-T Axes : 062 093 014 degrees QTc Int : 426 ms Sinus tachycardia Rightward axis Nonspecific T wave abnormality Inferior leads Abnormal ECG When compared with ECG of 16-JAN-2023 09:30, No significant change was found Referred By: Fanny Albright Electronically Signed By:JAYDE YOUNG MD
[2023-03-21 05:09] LABS: Beta-Hydroxybutyrate 8.12 mmol/L (0.02-0.27)
[2023-03-21] MEDS: Prochlorperazine Edisylate 10 MG/2 ML VIAL IVPUSH (05:16)
[2023-03-21 05:22] LABS: Venous Blood Gas Refer to POC result
[2023-03-21 05:22] LABS: VBG Base Excess -21.9 mmol/L; VBG HCO3 6 mmol/L (22-26); VBG pCO2 22 mmHg; VBG pH 7.06 (7.32-7.43); VBG pO2 70 mmHg
[2023-03-21 05:32] LABS: Lactic Acid 10.7 mmol/L (0.5-2.0)
--- NOTE | 2023-03-21 05:38 | PM.CCHP ---
History of Present Illness Date of Service: 03/21/23 Attending physician on admission: Tommy Lange Chief Complaint: Metabolic acidosis Ms. Rios is a 27-year-old female who presented today with nausea and vomiting since 05:00 o?clock last night. ? She reports having 2-3 drinks every other day and attempted to consume alcohol at approximately noon yesterday.? She denies any problem with alcohol and is not interested in detox. She was admitted here at [facility] [place]/16-2022 with similar circumstances. She was given phenobarbital at that time with good response.? She initially refused admission but eventually agreed after several discussions regarding risks and benefits. Laboratory data significant for? WBC 26.1,? CO2 6, anion gap 41, AST 147, ALT 98, total protein 10.2, albumin 6.3, lactic acid 10.7, alcohol 210.? VBG showed a pH of 7.06, pCO2 22, PO2 70, HC03 6, base excess -21.9. Urine showed 3+ protein, greater than 160 mg/dL ketones, 1+ blood.?? CT chest, abdomen, pelvis pending. ED Course: ? The patient was given 3 L crystalloids, Zofran, thiamine, Compazine,? phenobarb 250 mg IM, 1 amp sodium bicarb. ? She was? treated empirically with cefepime. Review of Systems Review of Systems: Yes all other systems are reviewed and are negative Gastrointestinal: Gastrointestinal: Reports nausea and Reports vomiting PMFSH Past Medical History Functional capacity: independent ambulation Patient : No Social History Social History Household Members: Other Household Members Other:: boyfriend Housing: House Do you presently have visiting nurse or other home services: No Patient Tobacco Use Status: Never used Tobacco Smoked in Last 30 Days: Yes Use of substances other than those prescribed or required for medical reasons: Yes Substance Use Type: Marijuana Advance Directives: No Advance Directives Information Provided: Yes Nutrition Risks: No Nutritional Risk Patient : No service: No Meds Allergies Allergy/AdvReac Type Severity Reaction Status Date / Time amoxicillin Allergy Hives Verified 01/16/23 09:14 Penicillins Allergy Hives Verified 01/16/23 09:14 Active Medications: Current Medications Acetaminophen (Acetaminophen 325 Mg Tablet) 650 mg PO Q6H PRN PRN Reason: Pain, Mild (Pain Scale 1-3) Enoxaparin Sodium (Enoxaparin Sodium 40 Mg/0.4 Ml Syringe) 40 mg SUBCUT Q24H [facility] Sodium Chloride (Ns) 1,000 mls @ 999 mls/hr IV .Q1H1M SURYA Stop: 03/21/23 05:45 Lactated Ringer's (Lr) 1,000 mls @ 999 mls/hr IV .Q1H1M SURYA Stop: 03/21/23 05:45 Lactated Ringer's (Lr) 1,000 mls @ 150 mls/hr IVCONT .Q6H40M [facility] Melatonin (Melatonin 3 Mg Tablet) 6 mg PO BEDTIME PRN PRN Reason: Insomnia Ondansetron HCl (Ondansetron Hcl 4 Mg/2 Ml Vial) 4 mg IVPUSH Q8H PRN PRN Reason: Nausea and Vomiting Pharmacy Consult (Consult Rx Etoh Phenob Im/Po) 1 each MISCELLANE ONCE PRN; Protocol PRN Reason: Consult order Phenobarbital Sodium (Phenobarbital Sodium 130 Mg/Ml Vial Im Q3hx2) 187 mg IM Q3H [facility]; Protocol Stop: 03/21/23 10:31 Sodium Chloride (0.9 % Sodium Chloride Flush 3 Ml Syringe) 3 ml IVFLUSH QSHIFT [facility] Home Medications Medication Instructions Recorded Confirmed Last Taken Type Probiotic 1 cap PO DAILY 01/16/23 01/16/23 Unknown History ferrous fumarate-ascorbic 1 tab PO DAILY 01/16/23 01/16/23 Unknown History acid-ascorbate sod 65 mg iron-125 mg tablet Physical Exam Vital Signs: Vital Signs: Last Vital Signs Temp 97.6 F 03/21/23 02:50 Pulse 134 H 03/21/23 02:50 Resp 30 H 03/21/23 02:50 BP 131/84 03/21/23 02:50 Pulse Ox 96 03/21/23 02:50 O2 Del Method Room Air 03/21/23 02:50 BMI result Body Mass Index 21.3 Const: General: no acute distress and alert Orientation/consciousness: patient oriented x3 (answering appropriately.) HEENT: Head: Yes normocephalic and Yes atraumatic General nose exam: Normal external nose present (Nares patent, septum midline, sinuses nontender bilaterally.) Mouth: Normal oral and palatal mucosa present (No thrush, tongue in midline, mucosa moist.) Neck: Neck: Yes supple (no thyromegaly, trachea midline.) Resp: Auscultation: clear to auscultation bilaterally (normal work of breathing, no accessory muscle use) Cardio: Jugular venous distension: no JVD Rate: regular rate Rhythm: regular rhythm Heart sounds: no murmurs Peripheral pulses: Peripheral pulses 2+ throughout GI: Palpation (GI): Soft to palpation (nondistended.) and nontender Neuro: General: patient oriented x3 (answering appropriately.) Extrem: General: Yes full ROM, Yes capillary refill normal and Yes no clubbing, cyanosis or edema Psych: Appearance: grossly normal Speech and movement: Normal speech and movement present Results Labs 03/21/23 04:13 03/21/23 04:13 Labs: Laboratory Results - last 24 hr 03/21/23 03/21/23 03/21/23 04:13 05:08 05:15 MCV 101.5 H MCH 32.2 MCHC 31.7 RDW 12.8 Plt Count 265 D MPV 9.2 L Absolute Nucleated RBC 0.000 Nucleated RBC % (auto) 0.0 VBG pH 7.06 L* VBG pCO2 22 VBG pO2 70 VBG HCO3 6 L VBG O2 Saturation 82.0 VBG Base Excess -21.9 Anion Gap 41 H Estim Creat Clear Calc 75.9 Estimated GFR > 60 Random Glucose 88 Lactic Acid 10.7 H* Calcium 10.0 D Total Bilirubin 0.5 AST 147 H ALT 98 H Alkaline Phosphatase 105 Total Protein 10.2 H Albumin 6.3 H Lipase 30 Beta-Hydroxybutyrate 8.12 H Ethyl Alcohol 210 Assessment and Plan (1) Alcoholic ketoacidosis: Status: Acute (2) Lactic acidosis: Status: Acute (3) Dehydration: Status: Acute (4) Transaminitis: Status: Acute (5) Alcoholic gastritis: Status: Acute (6) Alcohol withdrawal syndrome: Status: Acute (7) Alcoholic intoxication: Status: Acute Plan 27-year-old female with past history of alcohol abuse admitted with alcoholic ketoacidosis and lactic acidosis. Neuro: ? No acute? issues.? Patient is being treated with phenobarb protocol for alcohol withdrawal. No history of seizures / delirium tremens. Cardiac:Tachycardia likely due to alcohol withdrawal.? Pulmonary: No acute issues Renal: Ketoacidosis, lactic acidosis due to alcohol use.? Bicarb given.? Continue IV fluids. Monitor electrolytes, VBG. Endo:? No acute issues.? GI:Transaminitis. CT abdomen/pelvis pendingCont to monitor LFTs. : No acute issues. Heme/Onc: Macrocytosis without anemia likely due to alcohol use. ID: ? WBC 26.1, though low suspicion for infection.? Blood cultures pending.? Treated with antibiotics empirically. Psych: ? Patient states that she does not feel like she has a problem with alcohol and is not interested in detox. ? financial services officer consult placed.? Miscellaneous: No acute issues. Time Spent With Patient Time: Total time managing care of this patient today ____ minutes.
[2023-03-21] MEDS: Lactated Ringers 1,000 ML 999 ML IV (05:40)
[2023-03-21] MEDS: Sodium Bicarbonate 8.4% 50 MEQ/50 ML SYRINGE IVPUSH (05:46)
[2023-03-21 06:35] LABS: HCG Quantitative < 2 mIU/mL
--- NOTE | 2023-03-21 06:36 | PC.NURSE ---
Pt arrived from home with c/o nausea vomiting. Multiple attempts for labs and IV unsuccessfully. notified and able to place #20 in L-AC via ultrasound. At this time, patient is alert and oriented X4, for nausea and vomiting she has received zofran and compazine with little improvement. Bolus IV fluids running and due to abnormal abs patient given amp of NaBicarb. Patient was reluctant to be admitted but after multipe conversations about the severity of patients current condition she agreed. Hcg labs pending and pt will go to CT followed by ICU.
--- NOTE | 2023-03-21 07:02 | PC.NURSE ---
st on monitor, skin wpd, alert, sticking her fingers down her throat as I walked in the room, vomit in the emesis bag, ns bolus started per 5am order, ct not ready for the pt but will be in approx 10-15 min,
[2023-03-21 07:17] LABS: Reflex Lactate? Lactic Acid Added
[2023-03-21] MEDS: PHENobarbitaL sodium 130 MG/ML VIAL IM Q3Hx2 187 MG IM ×2 (07:27→10:04)
[2023-03-21 07:46] LABS: Appearance Urine Clear; Color Urine Yellow; Glucose Urine UA Negative (Negative); Leukocyte Esterase Urine Negative (Negative); Nitrite Urine Negative (Negative); PH 5.5 (5.0-9.0); UMIC TRIGGER UACC YES; Urine Blood Moderate (2+) (Negative); Urine Ketones 80 mg/dL (Negative); Urine Protein 300 (3+) mg/dL (Neg-Trace)
--- NOTE | 2023-03-21 08:01 | PC.NURSE ---
c/o nausea , per dr rajan ok to give zofran prn now and she also suggested give the 2nd Pheno im now, st 140's, alert, speech clear, steady transfer to commode, ua sent, ct done and pt tolerated well, ns bolus infusing, pt to ICU report given
[2023-03-21] MEDS: Lactated Ringers 1,000 ML 150 ML IVCONT (08:07)
[2023-03-21 08:09] LABS: Bacteria Urine Trace (None Seen); Hyaline Casts Urine 0-2 /LPF (0-2); RBC Urine 0-2 /HPF (0-2); WBC Urine 0-5 /HPF (0-5)
[2023-03-21] MEDS: iohexoL 350 MG/ML 100 ML INFUS..BTL 85 ML IV (08:11)
--- NOTE | 2023-03-21 08:47 | PHA.MEDREC ---
Pharmacy Consult ? Medication Reconciliation Pharmacy has completed the medication reconciliation. Patient states she takes omeprazole, and tries to take OTC vitamins
[2023-03-21 09:05] LABS: Venous Blood Gas Refer to POC result
[2023-03-21 09:05] LABS: VBG Base Excess -18.3 mmol/L; VBG HCO3 7 mmol/L (22-26); VBG pCO2 20 mmHg; VBG pH 7.18 (7.32-7.43); VBG pO2 94 mmHg
[2023-03-21 09:15] LABS: ~Lactic Acid-LAB USE ONLY 5.9 mmol/L (0.5-2.0)
[2023-03-21 09:18] LABS: Anion Gap 28 (12-20); Blood Urea Nitrogen 6 mg/dL (9-16); Calcium 7.9 mg/dL (8.4-10.2); Carbon Dioxide 7 mmol/L (22-29); Chloride 106 mmol/L (96-108); Creatinine Clr Calc Pharmacy 99.8; Estimated Glomerular Filt Rate > 60; Glucose Random 95 mg/dL (60-115); Potassium 5.1 mmol/L (3.3-5.1); Sodium 136 mmol/L (135-145)
[2023-03-21] MEDS: Enoxaparin Sodium 40 MG/0.4 ML SYRINGE SUBCUT (09:23)
[2023-03-21] MEDS: 0.9 % Sodium Chloride Flush 3 ML SYRINGE IVFLUSH ×2 (09:23→21:14)
[2023-03-21] MEDS: KCl 20 mEq in 5 % Dex/Lact Rin 20 MEQ/1,000 ML IV.SOLN 150 MEQ IVCONT (09:55)
[2023-03-21 10:00] LABS: Acetaminophen LAB < 17 mcg/mL (<30); Salicylate < 5.0 mg/dL (15-30)
[2023-03-21] MEDS: Magnesium Sulfate/D5W 1 GM/100 ML PIGGYBACK IV (10:03)
[2023-03-21 10:10] LABS: Amphetamine Screen Urine Not Detected (Not Detect); Barbiturates, Urine POSITIVE (Not Detect); Benzodiazepines Screen Urine Not Detected (Not Detect); Cannabinoid Screen Urine POSITIVE (Not Detect); Cocaine Screen Urine Not Detected (Not Detect); Fentanyl, urine Not Detected (Not Detect); Opiate Screen Urine Not Detected (Not Detect); Phencyclidine Screen Urine Not Detected (Not Detect)
[2023-03-21 10:59] LABS: Reflex Lactate? 2 Y
[2023-03-21] MEDS: Famotidine/PF 20 MG/2 ML VIAL IVPUSH ×2 (11:35→21:14)
[2023-03-21 12:27] LABS: VBG Base Excess -13.9 mmol/L; VBG HCO3 11 mmol/L (22-26); VBG pCO2 23 mmHg; VBG pH 7.26 (7.32-7.43); VBG pO2 62 mmHg
[2023-03-21 12:31] LABS: Venous Blood Gas Refer to POC result
[2023-03-21 12:33] LABS: ~Lactic Acid-LAB USE ONLY 1.5 mmol/L (0.5-2.0)
[2023-03-21 12:41] LABS: Anion Gap 22 (12-20); Blood Urea Nitrogen 5 mg/dL (9-16); Calcium 8.1 mg/dL (8.4-10.2); Carbon Dioxide 11 mmol/L (22-29); Chloride 104 mmol/L (96-108); Creatinine Clr Calc Pharmacy 85.2; Estimated Glomerular Filt Rate > 60; Glucose Random 180 mg/dL (60-115); Magnesium 2.1 mg/dL (1.6-2.6); Phosphorus 1.4 mg/dL (2.7-4.5); Potassium 5.4 mmol/L (3.3-5.1); Sodium 132 mmol/L (135-145)
[2023-03-21] MEDS: Dextrose 5 % and Lactated Ring 1,000 ML 125 ML IVCONT (13:01)
--- NOTE | 2023-03-21 15:04 | MHC.CM.PN ---
Met w/pt to review d/c need: pt sleepy: states she has a residence but no insurance or MD. Declined HCP but requested transportation to home when medically stable. Referral placed to [facility] [place] assist pt w/payor. No DME or services used. D/C Plan: return to home w/instructions for obtaining PCP once insurance arranged.
--- NOTE | 2023-03-21 15:13 | P.PNCC_ITS ---
Subjective Subjective Date of Service: 03/21/23 Critical Care Time (minutes): 45 Physical Exam 2 Vital Signs: Vital Signs: Last Vital Signs Temp 98.7 F 03/21/23 12:00 Pulse 136 H 03/21/23 14:00 Resp 20 03/21/23 14:00 BP 123/73 03/21/23 14:00 Pulse Ox 99 03/21/23 14:00 O2 Del Method Room Air 03/21/23 14:00 BMI result Body Mass Index 21.3 Objective Data Labs 03/21/23 04:13 03/21/23 12:17 Labs: Laboratory Results - last 24 hr 03/21/23 03/21/23 03/21/23 04:13 05:08 05:15 WBC 26.1 H RBC 4.69 Hgb 15.1 Hct 47.6 H MCV 101.5 H MCH 32.2 MCHC 31.7 RDW 12.8 Plt Count 265 D MPV 9.2 L Absolute Nucleated RBC 0.000 Nucleated RBC % (auto) 0.0 VBG pH 7.06 L* VBG pCO2 22 VBG pO2 70 VBG HCO3 6 L VBG O2 Saturation 82.0 VBG Base Excess -21.9 Sodium 140 Potassium 3.9 Chloride 97 Carbon Dioxide 6 L* D Anion Gap 41 H BUN 10 Creatinine 0.92 Estim Creat Clear Calc 75.9 Estimated GFR > 60 Random Glucose 88 Lactic Acid 10.7 H* Lactic Acid F/U @ 2Hr Lactic Acid F/U @ 4Hr Calcium 10.0 D Phosphorus Magnesium Total Bilirubin 0.5 AST 147 H ALT 98 H Alkaline Phosphatase 105 Total Protein 10.2 H Albumin 6.3 H Lipase 30 Beta-Hydroxybutyrate 8.12 H Beta HCG, Quant < 2 Urine Color Urine Appearance Urine pH Ur Specific [place] Urine Protein Urine Glucose (UA) Urine Ketones Urine Blood Urine Nitrite Ur Leukocyte Esterase Urine RBC Urine WBC Ur Squamous Epith Cells Urine Bacteria Hyaline Casts Salicylates Urine Opiates Screen Urine Fentanyl Screen Acetaminophen Ur Barbiturates Screen Ur Phencyclidine Scrn Ur Amphetamines Screen U Benzodiazepines Scrn Urine Cocaine Screen U Marijuana (THC) Screen Ethyl Alcohol 210 03/21/23 03/21/23 03/21/23 07:39 08:55 08:59 WBC RBC Hgb Hct MCV MCH MCHC RDW Plt Count MPV Absolute Nucleated RBC Nucleated RBC % (auto) VBG pH 7.18 L* VBG pCO2 20 VBG pO2 94 VBG HCO3 7 L VBG O2 Saturation 97.0 VBG Base Excess -18.3 Sodium 136 Potassium 5.1 D Chloride 106 Carbon Dioxide 7 L* Anion Gap 28 H BUN 6 L Creatinine 0.70 Estim Creat Clear Calc 99.8 Estimated GFR > 60 Random Glucose 95 Lactic Acid Lactic Acid F/U @ 2Hr 5.9 H* Lactic Acid F/U @ 4Hr Calcium 7.9 L D Phosphorus Magnesium Total Bilirubin AST ALT Alkaline Phosphatase Total Protein Albumin Lipase Beta-Hydroxybutyrate Beta HCG, Quant Urine Color Yellow Urine Appearance Clear Urine pH 5.5 Ur Specific [place] 1.020 Urine Protein 300 (3+) H Urine Glucose (UA) Negative Urine Ketones 80 Urine Blood Moderate (2+) H Urine Nitrite Negative Ur Leukocyte Esterase Negative Urine RBC 0-2 Urine WBC 0-5 Ur Squamous Epith Cells 3-5 Urine Bacteria Trace Hyaline Casts 0-2 Salicylates Urine Opiates Screen Not Detected Urine Fentanyl Screen Not Detected Acetaminophen Ur Barbiturates Screen POSITIVE H Ur Phencyclidine Scrn Not Detected Ur Amphetamines Screen Not Detected U Benzodiazepines Scrn Not Detected Urine Cocaine Screen Not Detected U Marijuana (THC) Screen POSITIVE H Ethyl Alcohol 03/21/23 03/21/23 03/21/23 09:36 12:17 12:21 WBC RBC Hgb Hct MCV MCH MCHC RDW Plt Count MPV Absolute Nucleated RBC Nucleated RBC % (auto) VBG pH 7.26 L VBG pCO2 23 VBG pO2 62 VBG HCO3 11 L VBG O2 Saturation 90.0 VBG Base Excess -13.9 Sodium 132 L Potassium 5.4 H Chloride 104 Carbon Dioxide 11 L Anion Gap 22 H BUN 5 L Creatinine 0.82 Estim Creat Clear Calc 85.2 Estimated GFR > 60 Random Glucose 180 H Lactic Acid Lactic Acid F/U @ 2Hr Lactic Acid F/U @ 4Hr 1.5 Calcium 8.1 L Phosphorus 1.4 L Magnesium 2.1 Total Bilirubin AST ALT Alkaline Phosphatase Total Protein Albumin Lipase Beta-Hydroxybutyrate Beta HCG, Quant Urine Color Urine Appearance Urine pH Ur Specific [place] Urine Protein Urine Glucose (UA) Urine Ketones Urine Blood Urine Nitrite Ur Leukocyte Esterase Urine RBC Urine WBC Ur Squamous Epith Cells Urine Bacteria Hyaline Casts Salicylates < 5.0 L Urine Opiates Screen Urine Fentanyl Screen Acetaminophen < 17 Ur Barbiturates Screen Ur Phencyclidine Scrn Ur Amphetamines Screen U Benzodiazepines Scrn Urine Cocaine Screen U Marijuana (THC) Screen Ethyl Alcohol Quality VTE VTE Risk Level:: Medical - moderate - high VTE Device Contraindication: Treatment Not Indicated VTE Drug Contraindication: N/A - Med Ordered
[2023-03-21 20:07] LABS: VBG Base Excess -3.5 mmol/L; VBG HCO3 19 mmol/L (22-26); VBG pCO2 27 mmHg; VBG pH 7.45 (7.32-7.43); VBG pO2 68 mmHg
[2023-03-21 20:39] LABS: Anion Gap 16 (12-20); Blood Urea Nitrogen 5 mg/dL (9-16); Calcium 8.6 mg/dL (8.4-10.2); Carbon Dioxide 19 mmol/L (22-29); Chloride 101 mmol/L (96-108); Creatinine Clr Calc Pharmacy 93.2; Estimated Glomerular Filt Rate > 60; Glucose Random 166 mg/dL (60-115); Sodium 132 mmol/L (135-145)
[2023-03-21 21:06] LABS: Venous Blood Gas Refer to POC result
[2023-03-21] MEDS: Dextrose 5 % and Lactated Ring 1,000 ML 100 ML IVCONT (21:12)
[2023-03-21] MEDS: Thiamine HCL 100 MG TABLET PO (21:14)
[2023-03-22 00:14] VITALS: BP 110/66; PULSE 107; RESP 14; O2SAT 98
[2023-03-22 04:00] VITALS: BP 114/69; PULSE 106; RESP 14; O2SAT 99
[2023-03-22 04:55] LABS: VBG Base Excess 4.7 mmol/L; VBG HCO3 28 mmol/L (22-26); VBG pCO2 38 mmHg; VBG pH 7.47 (7.32-7.43); VBG pO2 31 mmHg
[2023-03-22 04:58] LABS: MANUAL DIFF FLAG NO
[2023-03-22 04:59] LABS: Venous Blood Gas Refer to POC result
[2023-03-22 05:00] LABS: Basophils Percent Auto 0.2 % (0-2); Eosinophils Percent Auto 0.1 % (0-4); Hematocrit 33.6 % (37.0-47.0); Hemoglobin 11.4 g/dl (12.0-16.0); Imm Gran Abs Auto 0.07 X10*3/uL (0.00-0.03); Imm Gran Pct Auto 0.6 % (0.0-0.4); Lymphocytes Percent Auto 8.4 % (20-40); Mean Corpuscular HGB Conc 33.9 g/dl (31.0-35.0); Mean Corpuscular Hemoglobin 32.3 pg (27.0-33.0); Mean Corpuscular Volume 95.2 fL (80.0-98.0); Mean Platelet Volume 9.6 fL (9.4-12.3); Monocytes Absolute Auto 0.9 X10*3/uL (0.1-1.2); Monocytes Percent Auto 7.3 % (2-11); Neutrophils Absolute Auto 9.9 x10*3/uL (2.0-8.3); Neutrophils Percent Auto 83.4 % (45-73); Platelet Count 153 X10*3/uL (160-400); Red Blood Count 3.53 X10*6/uL (4.20-5.50); Red Cell Distribution Width 12.3 % (11.0-16.0); White Blood Count 11.8 X10*3/uL (4.8-10.8)
[2023-03-22 05:20] LABS: Alanine Aminotransferase 47 U/L (0-31); Albumin Level 4.1 g/dL (3.5-5.0); Alkaline Phosphatase 54 U/L (39-117); Anion Gap 15 (12-20); Aspartate Amino Transferase 75 U/L (5-31); Blood Urea Nitrogen 5 mg/dL (9-16); Calcium 8.7 mg/dL (8.4-10.2); Carbon Dioxide 23 mmol/L (22-29); Chloride 101 mmol/L (96-108); Creatinine Clr Calc Pharmacy 112.7; Estimated Glomerular Filt Rate > 60; Glucose Random 119 mg/dL (60-115); Phosphorus 0.7 mg/dL (2.7-4.5); Potassium 4.2 mmol/L (3.3-5.1); Sodium 135 mmol/L (135-145); Total Protein 6.4 g/dL (6.5-8.0)
[2023-03-22] MEDS: polyethylene glycoL 3350 17 GM POWD.PACK PO (07:37)
[2023-03-22] MEDS: PHENobarbitaL 15 MG TABLET 45 MG PO ×2 (07:38→21:53)
[2023-03-22] MEDS: Omeprazole 20 MG CAPSULE.DR PO ×2 (07:38→16:16)
[2023-03-22] MEDS: Thiamine HCL 100 MG TABLET PO (07:38)
[2023-03-22] MEDS: Potassium Phosphate/NS 15 MMOL/250 ML PLAST..BAG 62.5 MMOL IV (07:38)
[2023-03-22] MEDS: Sodium,Potassium Phosphates POWD.PACK 1 PACKET PO ×4 (07:38→21:53)
[2023-03-22] MEDS: Dextrose 5 % and Lactated Ring 1,000 ML 80 ML IVCONT ×2 (07:42→16:00)
[2023-03-22 08:00] VITALS: BP 129/89; PULSE 116; RESP 17; TEMP 36.2; O2SAT 100
[2023-03-22] MEDS: Folic Acid 1 MG TABLET PO (08:27)
[2023-03-22] MEDS: Multivitamin TABLET 1 TAB PO (08:27)
--- NOTE | 2023-03-22 10:27 | P.PNIM_ITS ---
Subjective Subjective Date of Service: 03/22/23 Interval History: N/V resolved declines recovery support Review of Systems Review of Systems: Yes all other systems are reviewed and are negative Physical Exam 2 Vital Signs: Vital Signs: Last Vital Signs Temp 97.1 F 03/22/23 08:00 Pulse 116 H 03/22/23 08:00 Resp 17 03/22/23 08:00 BP 129/89 03/22/23 08:00 Pulse Ox 100 03/22/23 08:00 O2 Del Method Room Air 03/22/23 08:00 BMI result Body Mass Index 21.3 Gen: in no acute distress HEENT: sclera anicteric, moist mucus membranes Neck: supple Lungs: clear to auscultation bilaterally Heart: regular rate and rhythm, no murmurs Abd: soft, non-tender, non-distended Ext: no edema Skin: warm/well-perfused Neuro: alert and oriented x3, no focal findings Psych: appropriate affect Objective Data Active Medications Folic Acid (Folic Acid 1 Mg Tablet) 1 mg PO DAILY [facility] Last Admin: 03/22/23 08:27 Dose: 1 mg Documented By: BREONNA Dextrose/Lactated Ringer's (D5lr) 1,000 mls @ 80 mls/hr IVCONT .[id number] [facility] Last Admin: 03/22/23 07:42 Dose: 80 mls/hr Documented By: BREONNA Potassium Phosphate (Kphos) 15 mmol in 250 mls @ 62.5 mls/hr IV ONCE ONE Stop: 03/22/23 11:06 Last Admin: 03/22/23 07:38 Dose: 62.5 mls/hr Documented By: BREONNA Melatonin (Melatonin 3 Mg Tablet) 6 mg PO BEDTIME PRN PRN Reason: Insomnia Multivitamins/Vitamin C (Multivitamin Tablet) 1 tab PO DAILY [facility] Last Admin: 03/22/23 08:27 Dose: 1 tab Documented By: BREONNA Omeprazole (Omeprazole 20 Mg Capsule.) 20 mg PO BID@0630,1630 [facility] Last Admin: 03/22/23 07:38 Dose: 20 mg Documented By: BREONNA Pharmacy Consult (Consult Rx Etoh Phenob Im/Po) 1 each MISCELLANE ONCE PRN; Protocol PRN Reason: Consult order Phenobarbital (Phenobarbital 15 Mg Tablet) 45 mg PO BID [facility]; Protocol Stop: 03/23/23 21:01 Last Admin: 03/22/23 07:38 Dose: 45 mg Documented By: BREONNA Phenobarbital (Phenobarbital 15 Mg Tablet) 15 mg PO BID [facility]; Protocol Stop: 03/25/23 21:01 Phenobarbital (Phenobarbital 15 Mg Tablet) 15 mg PO DAILY [facility]; Protocol Stop: 03/27/23 09:01 Polyethylene Glycol (Polyethylene Glycol 3350 17 Gm Powd.Pack) 17 gm PO DAILY [facility] Last Admin: 03/22/23 07:37 Dose: 17 gm Documented By: BREONNA Potassium Phos/Sodium Phos (Sodium,Potassium Phosphates Powd.Pack) 1 packet PO QID [facility] Last Admin: 03/22/23 07:38 Dose: 1 packet Documented By: BREONNA Senna/Docusate Sodium (Sennosides/Docusate Sodium Tablet) 2 tab PO BID [facility] Last Admin: 03/22/23 09:48 Dose: Not Given Documented By: BREONNA Non-Admin Reason: pt had bm Sodium Chloride (0.9 % Sodium Chloride Flush 3 Ml Syringe) 3 ml IVFLUSH QSHIFT [facility] Last Admin: 03/22/23 07:04 Dose: Not Given Documented By: BREONNA Non-Admin Reason: See Note Thiamine HCl (Thiamine Hcl 100 Mg Tablet) 100 mg PO DAILY [facility] Last Admin: 03/22/23 07:38 Dose: 100 mg Documented By: BREONNA Labs 03/22/23 04:44 03/22/23 04:44 Labs: Laboratory Results - last 24 hr 03/21/23 03/21/23 03/21/23 12:17 12:21 19:55 MCV MCH MCHC RDW Plt Count MPV Immature Gran % (Auto) Neut % (Auto) Lymph % (Auto) [place] % (Auto) Eos % (Auto) Baso % (Auto) Lymph # (Auto) [place] # (Auto) Eos # (Auto) Baso # (Auto) Abs Immat Gran (auto) Absolute Neuts (auto) Absolute Nucleated RBC Nucleated RBC % (auto) VBG pH 7.26 L VBG pCO2 23 VBG pO2 62 VBG HCO3 11 L VBG O2 Saturation 90.0 VBG Base Excess -13.9 Anion Gap 22 H 16 Estim Creat Clear Calc 85.2 93.2 Estimated GFR > 60 > 60 Random Glucose 180 H 166 H Lactic Acid F/U @ 4Hr 1.5 Calcium 8.1 L 8.6 D Phosphorus 1.4 L Magnesium 2.1 Total Bilirubin AST ALT Alkaline Phosphatase Total Protein Albumin 03/21/23 03/22/23 03/22/23 20:01 04:44 04:50 MCV 95.2 D MCH 32.3 MCHC 33.9 RDW 12.3 Plt Count 153 L D MPV 9.6 Immature Gran % (Auto) 0.6 H Neut % (Auto) 83.4 H Lymph % (Auto) 8.4 L [place] % (Auto) 7.3 Eos % (Auto) 0.1 Baso % (Auto) 0.2 Lymph # (Auto) 1.0 L [place] # (Auto) 0.9 Eos # (Auto) 0.0 Baso # (Auto) 0.0 Abs Immat Gran (auto) 0.07 H Absolute Neuts (auto) 9.9 H Absolute Nucleated RBC 0.000 Nucleated RBC % (auto) 0.0 VBG pH 7.45 H 7.47 H VBG pCO2 27 38 VBG pO2 68 31 VBG HCO3 19 L 28 H VBG O2 Saturation 95.0 56.0 VBG Base Excess -3.5 4.7 Anion Gap 15 Estim Creat Clear Calc 112.7 Estimated GFR > 60 Random Glucose 119 H Lactic Acid F/U @ 4Hr Calcium 8.7 Phosphorus 0.7 L* Magnesium 2.0 Total Bilirubin 1.0 AST 75 H ALT 47 H Alkaline Phosphatase 54 Total Protein 6.4 L Albumin 4.1 Microbiology Microbiology Results: Microbiology 03/21/23 05:07 Blood Culture - Preliminary Blood - Venous No growth after 24 hours. 03/21/23 05:06 Blood Culture - Preliminary Blood - Venous No growth after 24 hours. Assessment and Plan (1) Alcoholic ketoacidosis: Status: Acute Plan d2 27yo F presenting with N/V, EtOH withdrawal; admitted to ICU with dehydration + alcoholic ketoacidosis with venous pH of 7.06, lactate of 10.7 hypophosphatemia - replete IV/PO, recheck in AM alcoholic ketoacidosis - resolved leukocytosis - resolved, likely hemoconcentration + reactive process EtOH withdrawal syndrome - phenobarbital taper AUD - thiamine, folate - declines recovery support esophagitis - PPI VTE ppx - SCDs dispo - eventual home In my clinical judgment, the patient requires continued inpatient hospitalization for the following reasons: severe electrolyte deficiency, inpatient EtOH smooth treatment Time Spent With Patient Time: Total time managing care of this patient today ____35 minutes. Quality Stroke Does the patient have a stroke diagnosis?: No VTE Prior VTE?: No VTE Risk Level:: Medical - moderate - high VTE Device Contraindication: Treatment Not Indicated VTE Drug Contraindication: N/A - Med Ordered
[2023-03-22 15:02] VITALS: BP 121/80; PULSE 93; RESP 18; TEMP 36.5; O2SAT 100
--- NOTE | 2023-03-22 15:15 | MHC.RECOVRN ---
Met with pt in 254 after consult placed to Addiction Medicine for alcohol use. Pt had presented to the ED with nausea/vomiting and alcohol withdrawal. Upon evaluation, pt was admitted to ICU with dehydration and alcoholic ketoacidosis. Pt laying in bed, awake, alert, engages in conversation but is guarded. Pt initially reports 2-3 vodka nips every other day, however, informs t/w she does begin drinking at about 11 am daily to stave off anxiety and withdrawal symptoms. Pt reports she began drinking this amount about 1.5 years ago due to being out of work during the pandemic and a lot going on in my life. Pt is not currently employed. Pt believes she utilizes alcohol to cope with anxiety symptoms. Pt is not currently seeing providers as she has been without insurance. Pt did meet with [facility] financial counselor to enroll in [place]. Pt reports family hx AUD and OUD. Pt lives with boyfriend of 5 years; pt reports boyfriend is concerned about pts alcohol use as he finds hidden nip bottles. Pt did attempt to abstain from alcohol use for one month with support of boyfriend but found herself drinking without boyfriend being aware. Pt denies history of treatment for AUD. Pt is interested in reducing amount of alcohol, is not interested in abstinence. Discussed recovery supports including [facility]. Pt provided with written information and resources. Pt would like to look over information prior to initiating any treatment. Denies questions or concerns at this time. Discussed with Maria Luz Pelletier APRN.
--- NOTE | 2023-03-22 15:44 | MHC.CM.PN ---
EMR REVIEWED. PT WAS TRANSFERRED TO MEDICAL FLOOR BUT NOT YET CLEARED FOR DC (ETOH WITHDRAWAL, PHENOBARB TAPER) CM WILL CONTINUE TO FOLLOW FOR ANY CHANGE IN DC NEEDS/PLAN
[2023-03-22 19:32] VITALS: BP 127/86; PULSE 95; RESP 18; TEMP 36.9; O2SAT 100
[2023-03-22] MEDS: Sennosides/Docusate Sodium TABLET 2 TAB PO (21:53)
[2023-03-23 03:24] VITALS: BP 127/73; PULSE 98; RESP 19; TEMP 36.6; O2SAT 100
[2023-03-23 06:10] LABS: Hematocrit 35.1 % (37.0-47.0); Hemoglobin 11.9 g/dl (12.0-16.0); Mean Corpuscular HGB Conc 33.9 g/dl (31.0-35.0); Mean Corpuscular Hemoglobin 32.4 pg (27.0-33.0); Mean Corpuscular Volume 95.6 fL (80.0-98.0); Mean Platelet Volume 9.8 fL (9.4-12.3); Platelet Count 136 X10*3/uL (160-400); Red Blood Count 3.67 X10*6/uL (4.20-5.50); Red Cell Distribution Width 12.2 % (11.0-16.0); White Blood Count 6.4 X10*3/uL (4.8-10.8)
[2023-03-23] MEDS: Omeprazole 20 MG CAPSULE.DR PO ×2 (06:18→16:13)
[2023-03-23 06:27] LABS: Alanine Aminotransferase 53 U/L (0-31); Albumin Level 4.3 g/dL (3.5-5.0); Alkaline Phosphatase 56 U/L (39-117); Anion Gap 17 (12-20); Aspartate Amino Transferase 112 U/L (5-31); Bilirubin Total 0.9 mg/dL (0.0-1.0); Blood Urea Nitrogen 3 mg/dL (9-16); Carbon Dioxide 25 mmol/L (22-29); Chloride 97 mmol/L (96-108); Creatinine Clr Calc Pharmacy 118.4; Estimated Glomerular Filt Rate > 60; Glucose Random 82 mg/dL (60-115); Magnesium 1.9 mg/dL (1.6-2.6); Phosphorus 1.5 mg/dL (2.7-4.5); Potassium 3.2 mmol/L (3.3-5.1); Sodium 136 mmol/L (135-145); Total Protein 6.9 g/dL (6.5-8.0)
[2023-03-23 07:22] VITALS: BP 114/71; PULSE 90; RESP 18; TEMP 36.9; O2SAT 100
[2023-03-23] MEDS: Sodium,Potassium Phosphates POWD.PACK 2 PACKET PO ×3 (08:21→20:05)
[2023-03-23] MEDS: polyethylene glycoL 3350 17 GM POWD.PACK PO (08:21)
[2023-03-23] MEDS: PHENobarbitaL 15 MG TABLET 45 MG PO ×2 (08:21→20:05)
[2023-03-23] MEDS: Potassium Chloride ER 20 MEQ TAB.ER.PRT 40 MEQ PO (08:21)
[2023-03-23] MEDS: Multivitamin TABLET 1 TAB PO (08:22)
[2023-03-23] MEDS: Folic Acid 1 MG TABLET PO (08:22)
[2023-03-23] MEDS: Sennosides/Docusate Sodium TABLET 2 TAB PO ×2 (08:22→20:05)
[2023-03-23] MEDS: Thiamine HCL 100 MG TABLET PO (08:22)
--- NOTE | 2023-03-23 12:21 | HO.PM.IMPN ---
Subjective Subjective Date of Service: 03/23/23 Interval History: no N/V/abd pain no shakiness undecided about naltrexone yet Review of Systems Review of Systems: Yes all other systems are reviewed and are negative Physical Exam Vital Signs: Vital Signs: Last Vital Signs Temp 98.4 F 03/23/23 07:22 Pulse 90 03/23/23 07:22 Resp 18 03/23/23 07:22 BP 114/71 03/23/23 07:22 Pulse Ox 100 03/23/23 07:22 O2 Del Method Room Air 03/23/23 07:22 BMI result Body Mass Index 21.3 Gen: in no acute distress HEENT: sclera anicteric, moist mucus membranes Neck: supple Lungs: clear to auscultation bilaterally Heart: regular rate and rhythm, no murmurs Abd: soft, non-tender, non-distended Ext: no edema Skin: warm/well-perfused Neuro: alert and oriented x3, no focal findings Psych: appropriate affect Objective Data Active Medications Folic Acid (Folic Acid 1 Mg Tablet) 1 mg PO DAILY [facility] Last Admin: 03/23/23 08:22 Dose: 1 mg Documented By: JANET Melatonin (Melatonin 3 Mg Tablet) 6 mg PO BEDTIME PRN PRN Reason: Insomnia Multivitamins/Vitamin C (Multivitamin Tablet) 1 tab PO DAILY [facility] Last Admin: 03/23/23 08:22 Dose: 1 tab Documented By: JANET Omeprazole (Omeprazole 20 Mg Capsule.) 20 mg PO BID@0630,1630 [facility] Last Admin: 03/23/23 06:18 Dose: 20 mg Documented By: DEMOND Pharmacy Consult (Consult Rx Etoh Phenob Im/Po) 1 each MISCELLANE ONCE PRN; Protocol PRN Reason: Consult order Phenobarbital (Phenobarbital 15 Mg Tablet) 45 mg PO BID [facility]; Protocol Stop: 03/23/23 21:01 Last Admin: 03/23/23 08:21 Dose: 45 mg Documented By: JANET Phenobarbital (Phenobarbital 15 Mg Tablet) 15 mg PO BID [facility]; Protocol Stop: 03/25/23 21:01 Phenobarbital (Phenobarbital 15 Mg Tablet) 15 mg PO DAILY [facility]; Protocol Stop: 03/27/23 09:01 Polyethylene Glycol (Polyethylene Glycol 3350 17 Gm Powd.Pack) 17 gm PO DAILY [facility] Last Admin: 03/23/23 08:21 Dose: 17 gm Documented By: JANET Potassium Phos/Sodium Phos (Sodium,Potassium Phosphates Powd.Pack) 2 packet PO Q6H [facility] Stop: 03/23/23 20:01 Last Admin: 03/23/23 08:21 Dose: 2 packet Documented By: JANET Senna/Docusate Sodium (Sennosides/Docusate Sodium Tablet) 2 tab PO BID [facility] Last Admin: 03/23/23 08:22 Dose: 2 tab Documented By: JANET Sodium Chloride (0.9 % Sodium Chloride Flush 3 Ml Syringe) 3 ml IVFLUSH QSHIFT [facility] Last Admin: 03/23/23 08:21 Dose: Not Given Documented By: JANET Non-Admin Reason: No Access Thiamine HCl (Thiamine Hcl 100 Mg Tablet) 100 mg PO DAILY [facility] Last Admin: 03/23/23 08:22 Dose: 100 mg Documented By: JANET Labs 03/23/23 05:42 03/23/23 05:42 Labs: Laboratory Results - last 24 hr 03/23/23 05:42 MCV 95.6 MCH 32.4 MCHC 33.9 RDW 12.2 Plt Count 136 L MPV 9.8 Absolute Nucleated RBC 0.000 Nucleated RBC % (auto) 0.0 Anion Gap 17 Estim Creat Clear Calc 118.4 Estimated GFR > 60 Random Glucose 82 Calcium 9.0 Phosphorus 1.5 L Magnesium 1.9 Total Bilirubin 0.9 AST 112 H ALT 53 H Alkaline Phosphatase 56 Total Protein 6.9 Albumin 4.3 Microbiology Microbiology Results: Microbiology 03/21/23 05:07 Blood Culture - Preliminary Blood - Venous No growth after 48 hours. 03/21/23 05:06 Blood Culture - Preliminary Blood - Venous No growth after 48 hours. Assessment and Plan (1) Alcoholic ketoacidosis: Status: Acute Plan d3 27yo F presenting with N/V, EtOH withdrawal; admitted to ICU with dehydration + alcoholic ketoacidosis with venous pH of 7.06, lactate of 10.7 hypophosphatemia hypokalemia - replete PO, recheck in AM alcoholic ketoacidosis - resolved leukocytosis - resolved, likely hemoconcentration + reactive process EtOH withdrawal syndrome - continue phenobarbital taper AUD - thiamine, folate - Recovery Team consulted esophagitis - PPI VTE ppx - SCDs dispo - eventual home In my clinical judgment, the patient requires continued inpatient hospitalization for the following reasons: electrolyte deficiency, inpatient EtOH smooth treatment Time Spent With Patient Time: Total time managing care of this patient today ___35_ minutes. Quality Stroke Does the patient have a stroke diagnosis?: No VTE Prior VTE?: No VTE Risk Level:: Medical - moderate - high VTE Device Contraindication: Treatment Not Indicated VTE Drug Contraindication: N/A - Med Ordered
[2023-03-23 12:39] LABS: Iron 133 mcg/dL (30-160); Percent Iron Saturation 49 % (15-50); Total Iron Binding Capacity 269 mcg/dL (228-428); Unsaturated Iron Binding 136 ug/dL
[2023-03-23 12:51] LABS: Ferritin 476 ng/mL (10-122)
--- NOTE | 2023-03-23 12:53 | MHC.RECOVRN ---
water taxi captain met with patient in room 357-1. She is sitting up in bed, watching TV. She is A+Ox3, calm and cooperative. She is open to conversation. She reports feeling well at the moment. She denies any withdrawal symptoms. CIWA scale has been 0. Denies any cravings- patient reports I feel relaxed. I don't feel anxious. - Discussed this is likely from getting medication that helps prevent alcohol withdrawal symptoms. Patient admits to using alcohol to cope with anxiety. She did not have health insurance prior to coming into the hospital, therefore she did not have a provider, mental health team, or access to medication/treatment. She met with financial counselor who assisted her with [employer] application. She doesn't feel she has a dependency on alcohol, but needs help with coping and managing her anxiety. She is interested in finding a PCP, establishing care with a therapist, and taking medication that may help with her anxiety. She is not currently interested in fully abstaining from alcohol, but is interested in cutting back . She admits to briefly reviewing the Naltraxone information, but is still hesitant to commit. She admits her bigger focus is getting health insurance straightened out first. She is unsure of what the discharge plan is at this time, but assumes it will be soon. Plan to meet with her again tomorrow to further discuss recovery plans/goals and offer more support/information. Discussed with Maria Luz Pelletier APRN.
[2023-03-23 14:55] VITALS: BP 132/79; PULSE 90; RESP 18; TEMP 36.9; O2SAT 100
[2023-03-23 19:39] VITALS: BP 133/85; PULSE 100; RESP 18; TEMP 36.5; O2SAT 100
[2023-03-24 02:30] VITALS: BP 121/75; PULSE 86; RESP 18; TEMP 36.9; O2SAT 99
[2023-03-24] MEDS: Omeprazole 20 MG CAPSULE.DR PO (06:05)
[2023-03-24 06:36] LABS: Prothrombin Time 11.7 SEC (11.1-13.3)
[2023-03-24 06:43] LABS: Alanine Aminotransferase 75 U/L (0-31); Albumin Level 4.4 g/dL (3.5-5.0); Alkaline Phosphatase 56 U/L (39-117); Anion Gap 15 (12-20); Aspartate Amino Transferase 142 U/L (5-31); Bilirubin Total 0.9 mg/dL (0.0-1.0); Blood Urea Nitrogen 4 mg/dL (9-16); Calcium 9.7 mg/dL (8.4-10.2); Carbon Dioxide 24 mmol/L (22-29); Chloride 99 mmol/L (96-108); Creatinine Clr Calc Pharmacy 118.4; Estimated Glomerular Filt Rate > 60; Glucose Random 94 mg/dL (60-115); Magnesium 1.7 mg/dL (1.6-2.6); Phosphorus 3.7 mg/dL (2.7-4.5); Potassium 3.3 mmol/L (3.3-5.1); Sodium 135 mmol/L (135-145); Total Protein 7.1 g/dL (6.5-8.0)
[2023-03-24 07:10] VITALS: BP 112/72; PULSE 88; RESP 18; TEMP 36.6; O2SAT 100
[2023-03-24 07:21] LABS: Vitamin B12 318 pg/mL (200-900)
[2023-03-24] MEDS: Multivitamin TABLET 1 TAB PO (08:36)
[2023-03-24] MEDS: Folic Acid 1 MG TABLET PO (08:36)
[2023-03-24] MEDS: Thiamine HCL 100 MG TABLET PO (08:37)
[2023-03-24] MEDS: PHENobarbitaL 15 MG TABLET PO (08:37)
--- NOTE | 2023-03-24 08:42 | PM.DS ---
DS: Providers Provider Date of Service: 03/24/23 Date of admission: 03/21/23 05:04 Date of discharge: 03/24/23 Primary care physician: Unknown Physician Consults: 03/21/23 04:30 Addiction Medicine Routine Consulting Provider: Addiction Covering Reason for consultation: Alcohol use disorder DS: Diagnosis Discharge Diagnosis (1) Alcoholic ketoacidosis: Status: Acute (2) Transaminitis: Status: Acute (3) Lactic acidosis: Status: Acute (4) Dehydration: Status: Acute (5) Alcoholic gastritis: Status: Acute (6) Alcohol withdrawal syndrome: Status: Acute (7) Alcoholic intoxication: Status: Acute (8) Alcohol use disorder: Status: Acute (9) Hypophosphatemia: Status: Acute (10) Hypokalemia: Status: Acute DS: Summary Hospital Course Hospital Course: from admission H+P by route service manager Connie Lieberman NP, 03/21/23: Ms. Rios is a 27-year-old female who presented today with nausea and vomiting since 05:00 o?clock last night. ? She reports having 2-3 drinks every other day and attempted to consume alcohol at approximately noon yesterday.? She denies any problem with alcohol and is not interested in detox. She was admitted here at [facility] 01/16-2022 with similar circumstances. She was given phenobarbital at that time with good response.? She initially refused admission but eventually agreed after several discussions regarding risks and benefits. Laboratory data significant for? WBC 26.1,? CO2 6, anion gap 41, AST 147, ALT 98, total protein 10.2, albumin 6.3, lactic acid 10.7, alcohol 210.? VBG showed a pH of 7.06, pCO2 22, PO2 70, HC03 6, base excess -21.9. Urine showed 3+ protein, greater than 160 mg/dL ketones, 1+ blood.?? CT chest, abdomen, pelvis pending. ED Course: ? The patient was given 3 L crystalloids, Zofran, thiamine, Compazine,? phenobarb 250 mg IM, 1 amp sodium bicarb. ? She was? treated empirically with cefepime. Ms Carrasco is a 27yo F who presented with N/V and EtOH withdrawal. She was admitted to the ICU with dehydration + alcoholic ketoacidosis with venous pH of 7.06, lactate of 10.7. She was resuscitated with IV fluids and stepped down to the medical-surgical floor the next day. No evidence of infection, so antibiotics not continued. Potassium and phosphorous were repleted. Ketoacidosis resolved. She was given phenobarbital taper for treatment of withdrawal. She met with Addiction Medicine and I prescribed her naltrexone upon discharge; she will follow up with [facility] this week. She will also need to establish primary care ROSALINA. Time Spent with Patient Time attestation: Total time managing care of this patient today __35__ minutes. Discharge coordination time: Greater than 30 minutes Quality: Safe Use of Opioids Does Pt have an Active Cancer Diagnosis on the Problem List?: No Quality: Stroke Does the patient have a stroke diagnosis?: No Physical Exam Vital Signs: Vital Signs: Last Vital Signs Temp 97.9 F 03/24/23 07:10 Pulse 88 03/24/23 07:10 Resp 18 03/24/23 07:10 BP 112/72 03/24/23 07:10 Pulse Ox 100 03/24/23 07:10 O2 Del Method Room Air 03/24/23 07:10 BMI result Body Mass Index 21.3 Gen: in no acute distress HEENT: sclera anicteric, moist mucus membranes Neck: supple Lungs: clear to auscultation bilaterally Heart: regular rate and rhythm, no murmurs Abd: soft, non-tender, non-distended Ext: no edema Skin: warm/well-perfused Neuro: alert and oriented x3, no focal findings Psych: appropriate affect DS: Data Data Completed and Pending Completed studies during hospitalization [Text1]: Laboratory Results WBC 6.4 X10*3/uL (4.8-10.8) 03/23/23 05:42 RBC 3.67 X10*6/uL (4.20-5.50) L 03/23/23 05:42 Hgb 11.9 g/dl (12.0-16.0) L 03/23/23 05:42 Hct 35.1 % (37.0-47.0) L 03/23/23 05:42 MCV 95.6 fL (80.0-98.0) 03/23/23 05:42 MCH 32.4 pg (27.0-33.0) 03/23/23 05:42 MCHC 33.9 g/dl (31.0-35.0) 03/23/23 05:42 RDW 12.2 % (11.0-16.0) 03/23/23 05:42 Plt Count 136 X10*3/uL (160-400) L 03/23/23 05:42 MPV 9.8 fL (9.4-12.3) 03/23/23 05:42 Immature Gran % (Auto) 0.6 % (0.0-0.4) H 03/22/23 04:44 Neut % (Auto) 83.4 % (45-73) H 03/22/23 04:44 Lymph % (Auto) 8.4 % (20-40) L 03/22/23 04:44 [place] % (Auto) 7.3 % (2-11) 03/22/23 04:44 Eos % (Auto) 0.1 % (0-4) 03/22/23 04:44 Baso % (Auto) 0.2 % (0-2) 03/22/23 04:44 Lymph # (Auto) 1.0 X10*3/uL (1.2-4.9) L 03/22/23 04:44 [place] # (Auto) 0.9 X10*3/uL (0.1-1.2) 03/22/23 04:44 Eos # (Auto) 0.0 X10*3/uL (0.0-0.4) 03/22/23 04:44 Baso # (Auto) 0.0 X10*3/uL (0.0-0.2) 03/22/23 04:44 Abs Immat Gran (auto) 0.07 X10*3/uL (0.00-0.03) H 03/22/23 04:44 Absolute Neuts (auto) 9.9 x10*3/uL (2.0-8.3) H 03/22/23 04:44 Absolute Nucleated RBC 0.000 X10*3/uL (0.0-0.012) 03/23/23 05:42 Nucleated RBC % (auto) 0.0 /100WBC (0.0-0.2) 03/23/23 05:42 Hold Purple Top SEE NOTE 03/24/23 05:38 PT 11.7 SEC (11.1-13.3) 03/24/23 05:38 INR 1.0 (0.9-1.1) 03/24/23 05:38 VBG pH 7.47 (7.32-7.43) H 03/22/23 04:50 VBG pCO2 38 mmHg 03/22/23 04:50 VBG pO2 31 mmHg 03/22/23 04:50 VBG HCO3 28 mmol/L (22-26) H 03/22/23 04:50 VBG O2 Saturation 56.0 % 03/22/23 04:50 VBG Base Excess 4.7 mmol/L 03/22/23 04:50 Sodium 135 mmol/L (135-145) 03/24/23 05:38 Potassium 3.3 mmol/L (3.3-5.1) 03/24/23 05:38 Chloride 99 mmol/L (96-108) 03/24/23 05:38 Carbon Dioxide 24 mmol/L (22-29) 03/24/23 05:38 Anion Gap 15 (12-20) 03/24/23 05:38 BUN 4 mg/dL (9-16) L 03/24/23 05:38 Creatinine 0.59 mg/dL (0.5-1.4) 03/24/23 05:38 Estim Creat Clear Calc 118.4 03/24/23 05:38 Estimated GFR > 60 03/24/23 05:38 Random Glucose 94 mg/dL (60-115) 03/24/23 05:38 Lactic Acid 10.7 mmol/L (0.5-2.0) H* 03/21/23 05:08 Lactic Acid F/U @ 2Hr 5.9 mmol/L (0.5-2.0) H* 03/21/23 08:55 Lactic Acid F/U @ 4Hr 1.5 mmol/L (0.5-2.0) 03/21/23 12:17 Calcium 9.7 mg/dL (8.4-10.2) D 03/24/23 05:38 Phosphorus 3.7 mg/dL (2.7-4.5) 03/24/23 05:38 Magnesium 1.7 mg/dL (1.6-2.6) 03/24/23 05:38 Iron 133 mcg/dL (30-160) 03/23/23 05:42 TIBC 269 mcg/dL (228-428) 03/23/23 05:42 % Saturation 49 % (15-50) 03/23/23 05:42 Unsat Iron Binding 136 ug/dL 03/23/23 05:42 Ferritin 476 ng/mL (10-122) H 03/23/23 05:42 Total Bilirubin 0.9 mg/dL (0.0-1.0) 03/24/23 05:38 AST 142 U/L (5-31) H 03/24/23 05:38 ALT 75 U/L (0-31) H 03/24/23 05:38 Alkaline Phosphatase 56 U/L (39-117) 03/24/23 05:38 Total Protein 7.1 g/dL (6.5-8.0) 03/24/23 05:38 Albumin 4.4 g/dL (3.5-5.0) 03/24/23 05:38 Lipase 30 U/L (8-78) 03/21/23 04:13 Vitamin B12 318 pg/mL (200-900) 03/24/23 05:38 Folate 8.0 ng/mL (> or = 4.0) 03/24/23 05:38 Beta-Hydroxybutyrate 8.12 mmol/L (0.02-0.27) H 03/21/23 04:13 Beta HCG, Quant < 2 mIU/mL 03/21/23 04:13 Urine Color Yellow 03/21/23 07:39 Urine Appearance Clear 03/21/23 07:39 Urine pH 5.5 (5.0-9.0) 03/21/23 07:39 Ur Specific [place] 1.020 (1.005-1.025) 03/21/23 07:39 Urine Protein 300 (3+) mg/dL (Neg-Trace) H 03/21/23 07:39 Urine Glucose (UA) Negative mg/dL (Negative) 03/21/23 07:39 Urine Ketones 80 mg/dL (Negative) 03/21/23 07:39 Urine Blood Moderate (2+) (Negative) H 03/21/23 07:39 Urine Nitrite Negative (Negative) 03/21/23 07:39 Ur Leukocyte Esterase Negative (Negative) 03/21/23 07:39 Urine RBC 0-2 /HPF (0-2) 03/21/23 07:39 Urine WBC 0-5 /HPF (0-5) 03/21/23 07:39 Ur Squamous Epith Cells 3-5 /HPF (0-2) 03/21/23 07:39 Urine Bacteria Trace (None Seen) 03/21/23 07:39 Hyaline Casts 0-2 /LPF (0-2) 03/21/23 07:39 Salicylates < 5.0 mg/dL (15-30) L 03/21/23 09:36 Urine Opiates Screen Not Detected (Not Detect) 03/21/23 07:39 Urine Fentanyl Screen Not Detected (Not Detect) 03/21/23 07:39 Acetaminophen < 17 mcg/mL (<30) 03/21/23 09:36 Ur Barbiturates Screen POSITIVE (Not Detect) H 03/21/23 07:39 Ur Phencyclidine Scrn Not Detected (Not Detect) 03/21/23 07:39 Ur Amphetamines Screen Not Detected (Not Detect) 03/21/23 07:39 U Benzodiazepines Scrn Not Detected (Not Detect) 03/21/23 07:39 Urine Cocaine Screen Not Detected (Not Detect) 03/21/23 07:39 U Marijuana (THC) Screen POSITIVE (Not Detect) H 03/21/23 07:39 Ethyl Alcohol 210 mg/dL 03/21/23 04:13 Impressions Abdomen/Pelvis CT 03/21/23 08:11 IMPRESSION: Marked esophageal wall thickening and submucosal edema. This may represent esophagitis. Wall thickening of the cecum through the descending colon. This may represent colitis. Marked fecal impaction in the rectosigmoid colon. Hepatic steatosis. Chest CT 03/21/23 08:11 IMPRESSION: Marked esophageal wall thickening and submucosal edema. This may represent esophagitis. Wall thickening of the cecum through the descending colon. This may represent colitis. Marked fecal impaction in the rectosigmoid colon. Hepatic steatosis. Discharge Plan Discharge Anticipated Discharge Date/Time: 03/24/23 08:38 Patient Disposition: Home, Self-Care Discharge Diagnosis: alcohol use disorder with withdrawal and ketoacidosis Referrals: Maria Luz Pelletier, [employer] [Nurse Practitioner] - 3-5 Days Physician,Yoan J [Primary Care Provider] - 1 Week Discharge Medications: New naltrexone 50 mg tablet 50 mg PO DAILY Qty: 30 0RF Continued omeprazole 40 mg Capsule,Delayed Release(Dr/Ec) 40 mg PO DAILY@0630 Qty: 30 0RF multivitamin Tablet 1 tab PO DAILY vitamin B complex Capsule 1 cap PO DAILY Discharge Orders: Discharge Order (Routine); Ordered 03/24/23 Ordered By: Rai Leal Diet: Advance to usual diet Activity on Discharge: As tolerated Stand Alone Forms: Patient Portal Discharge page Care Plan Goals: sobriety Health Concerns: alcohol use disorder with withdrawal and ketoacidosis Plan of Treatment: stop drinking entirely start naltrexone 50 mg daily follow up with [employer] Maria Luz Pelletier at [facility], [address] [place] [address] [id number], you were given phenobarbital, which has a long half-life. do not drink alcohol as the combination with phenobarbital can cause excessive sedation establish primary care ROSALINA return to the hospital if you experience recurrent or worsening symptoms. Assessment: See Discharge Summary.
--- NOTE | 2023-03-24 10:04 | MHC.CM.PN ---
PT WILL DC HOME TODAY WITH NO SERVICES
--- NOTE | 2023-03-24 13:54 | MHC.RECOVRN ---
Met with patient in room 357-1 just prior to her DC. Upon entering the room, patient was laying down stating she was napping but is open to talking. She reports she is doing OK. Denies any s/s of withdrawal and reports feeling ready for DC. She voiced her plan to establish a primary care doctor and work on healthy coping mechanisms for anxiety. Encouraged her to call [facility] as we are accepting new patients. She reports wanting to get insurance card first. She is aware of new Naltrexone prescription- I'm willing to give it a try. Will need appointment at [facility]- confirmed she has all the contact/resource info and educational material needed. Discussed with Maria Luz Pelletier APRN.
== END 2023-03-24 12:14 | disposition home or self-care (01) | DRG 392 ==
LOC: HO.ED 04:20 → HO.EDOVER 05:20 → HO.ICU 06:48 → HO.S3 03-22 13:28
PROVIDERS: Internal Medicine Cardiovascular Disease; Student in an Organized Health Care Education/Training Program; Admitting Provider Nurse Practitioner Family; Emergency Provider Student in an Organized Health Care Education/Training Program; Visit Provider Family Medicine
DX: K20.90 Esophagitis, unspecified without bleeding (principal); E87.29 Other acidosis; F10.921 Alcohol use, unspecified with intoxication delirium; F10.931 Alcohol use, unspecified with withdrawal delirium; E83.39 Other disorders of phosphorus metabolism; E86.0 Dehydration; Y90.7 Blood alcohol level of 200-239 mg/100 ml; K29.20 Alcoholic gastritis without bleeding; D75.89 Other specified diseases of blood and blood-forming organs; Z88.0 Allergy status to penicillin; Z79.899 Other long term (current) drug therapy
CPT/HCPCS: 36415; 71260; 74177; 80048; 80053; 80143; 80179; 80307; 81001; 82010; 82607; 82728; 82746; 82803; 83540; 83605; 83690; 83735; 84100; 84702; 85025; 85027; 85610; 87040; 93005; 99285; J0692; J1650; J2405; J2560; J3411; J3475; Q9967

== ENCOUNTER → 2023-03-21 05:04 | Outpatient (BNV) | payer SELFPAY | PROVIDERS: Admitting Provider Nurse Practitioner Family; Emergency Provider Student in an Organized Health Care Education/Training Program; Visit Provider Family Medicine | DX: E87.29 Other acidosis (principal); R74.01 Elevation of levels of liver transaminase levels; E86.0 Dehydration; K29.20 Alcoholic gastritis without bleeding; F10.939 Alcohol use, unspecified with withdrawal, unspecified; E83.39 Other disorders of phosphorus metabolism; E87.6 Hypokalemia | CPT/HCPCS: 99232; 99239 ==

== ENCOUNTER 2023-04-28 21:52 | Inpatient (IN) | payer OTHER, SELFPAY ==
--- NOTE | 2023-04-28 | ECG_ITS ---
Test Reason : tachycardia Blood Pressure : / mmHG Vent. Rate : 135 BPM Atrial Rate : 135 BPM P-R Int : 140 ms QRS Dur : 084 ms QT Int : 296 ms P-R-T Axes : 070 090 043 degrees QTc Int : 444 ms Sinus tachycardia Rightward axis Borderline ECG When compared with ECG of 21-MAR-2023 05:06, Nonspecific T wave abnormality has replaced inverted T waves in Inferior leads Referred By: Sylvester Ribera Electronically Signed By:BON RUIZ
[2023-04-28 22:22] VITALS: BP 141/93; PULSE 148; RESP 16; TEMP 36.1; O2SAT 97; BMI 21.3
[2023-04-28 22:51] LABS: Basophils Absolute Auto 0.1 X10*3/uL (0.0-0.2); Basophils Percent Auto 0.3 % (0-2); Hematocrit 42.8 % (37.0-47.0); Hemoglobin 14.5 g/dl (12.0-16.0); Imm Gran Abs Auto 0.08 X10*3/uL (0.00-0.03); Imm Gran Pct Auto 0.4 % (0.0-0.4); Lymphocytes Absolute Auto 0.4 X10*3/uL (1.2-4.9); Lymphocytes Percent Auto 1.9 % (20-40); MANUAL DIFF FLAG SCAN; Mean Corpuscular HGB Conc 33.9 g/dl (31.0-35.0); Mean Corpuscular Hemoglobin 31.8 pg (27.0-33.0); Mean Corpuscular Volume 93.9 fL (80.0-98.0); Mean Platelet Volume 9.1 fL (9.4-12.3); Monocytes Absolute Auto 1.1 X10*3/uL (0.1-1.2); Monocytes Percent Auto 5.8 % (2-11); Neutrophils Absolute Auto 18.2 x10*3/uL (2.0-8.3); Neutrophils Percent Auto 91.6 % (45-73); Platelet Count 262 X10*3/uL (160-400); Red Blood Count 4.56 X10*6/uL (4.20-5.50); Red Cell Distribution Width 12.1 % (11.0-16.0); SCAN SMEAR FLAG 1; White Blood Count 19.8 X10*3/uL (4.8-10.8)
[2023-04-28 23:09] LABS: Alanine Aminotransferase 51 U/L (0-31); Alkaline Phosphatase 78 U/L (39-117); Anion Gap 35 (12-20); Aspartate Amino Transferase 51 U/L (5-31); Bilirubin Total 1.6 mg/dL (0.0-1.0); Blood Urea Nitrogen 10 mg/dL (9-16); Calcium 10.7 mg/dL (8.4-10.2); Carbon Dioxide 10 mmol/L (22-29); Chloride 92 mmol/L (96-108); Creatinine Clr Calc Pharmacy 52.9; Estimated Glomerular Filt Rate 48; Glucose Random 204 mg/dL (60-115); Potassium 3.6 mmol/L (3.3-5.1); Sodium 133 mmol/L (135-145); Total Protein 9.7 g/dL (6.5-8.0)
[2023-04-28 23:10] LABS: SLIDE REVIEW VERIFIED
[2023-04-28 23:27] LABS: Influenza A PCR NEGATIVE (Negative); Influenza B PCR NEGATIVE (Negative); Resp Syncy Virus RNA Qual PCR NEGATIVE (Negative); SARS COV2 PCR INHOUSE NEGATIVE (Negative)
--- NOTE | 2023-04-28 23:31 | ED.GENADULT ---
HPI - General Adult General Chief complaint: General Medical Stated complaint: VOMITING/FLU LIKE SYMPTOMS Time Seen by Provider: 04/28/23 23:31 Source: patient Mode of arrival: ambulatory Limitations: no limitations History of Present Illness HPI narrative: Patient alcoholic been vomiting for last 24 hours unable to eat or drink anything feels weak with upper abdominal pain. No fever no chills no diarrhea history of same in the past Related Data Home Medications Medication Instructions Recorded Confirmed multivitamin 1 tab PO DAILY 03/21/23 04/29/23 vitamin B complex 1 cap PO DAILY 03/21/23 04/29/23 Previous Rx's Medication Instructions Recorded omeprazole 40 mg capsule,delayed 40 mg PO DAILY@0630 #30 caps 01/17/23 release naltrexone 50 mg tablet 50 mg PO DAILY #30 tabs 03/24/23 Allergies Allergy/AdvReac Type Severity Reaction Status Date / Time amoxicillin Allergy Hives Verified 01/16/23 09:14 Penicillins Allergy Hives Verified 01/16/23 09:14 Review of Systems Review of Systems: Yes all other systems are reviewed and are negative [facility] Past Medical History Medical History Ulcer Social History Social History Household Members: Significant Other Household Members Other:: boyfriend Housing: Apartment Do you presently have visiting nurse or other home services: No Alcohol intake: current Alcohol intake frequency: a few times a week Alcohol type: beer, wine and hard liquor Patient Tobacco Use Status: Never used Tobacco Smoked in Last 30 Days: No Use of substances other than those prescribed or required for medical reasons: No Substance Use Type: Marijuana Advance Directives: No Advance Directives Information Provided: No Patient : No service: No Physical Exam ED Vital Signs: Vital Signs - 24 hr 04/28/23 22:22 Temperature 97.0 F Pulse Rate 148 H Respiratory Rate 16 Blood Pressure 141/93 H Pulse Oximetry 97 Oxygen Delivery Method Room Air BMI result Body Mass Index 21.3 Appearance: Alert. Oriented X3. No acute distress. Anxious Eyes: PERRLA, No Nystagmus ENT: Pharynx normal. Oral Mucosa dry Neck: Normal inspection. Neck supple. CVS: Normal heart rate and rhythm. Pulses normal. Respiratory: No respiratory distress. Equal air entry bilateral, no wheezing/rales/rhonchi Abdomen: Soft, tender in epigastric area, Bowel sounds are present, no mass palpable, no CVA tenderness Skin: Skin warm and dry. Normal skin color. Normal skin turgor. Extremities: No lower extremity edema. No calf tenderness Neuro: Oriented X 3. No motor deficit. No sensory deficit.No cerebellar signs , cranial nerves II-XII intact Medications Administered Generic Name Dose Route Start Last Admin Trade Name Freq PRN Reason Stop Dose Admin Dextrose/Sodium Chloride 1,000 mls @ 125 mls/hr 04/28/23 23:45 04/29/23 01:10 D51/2ns IVCONT 125 mls/hr .Q8H SURYA Administration Sodium Chloride 1,000 mls @ 999 mls/hr 04/29/23 01:21 04/29/23 01:32 Ns IV 04/29/23 02:21 999 mls/hr .Q1H1M ONE Administration Discontinued Medications Generic Name Dose Route Start Last Admin Trade Name Freq PRN Reason Stop Dose Admin Famotidine 20 mg 04/28/23 23:35 04/28/23 23:45 Famotidine/Pf 20 Mg/2 Ml Vial IVPUSH 04/28/23 23:36 20 mg ONCE ONE Administration Sodium Chloride 1,000 mls @ 999 mls/hr 04/28/23 23:32 04/29/23 01:32 Ns IV 04/29/23 00:32 Infused .Q1H1M ONE Infusion Lorazepam 1 mg 04/28/23 23:44 04/28/23 23:52 Lorazepam 2 Mg/Ml Vial IVPUSH 04/28/23 23:45 1 mg ONCE ONE Administration Ondansetron HCl 4 mg 04/28/23 23:35 04/28/23 23:44 Ondansetron Hcl 4 Mg/2 Ml Vial IVPUSH 04/28/23 23:36 4 mg ONCE ONE Administration Medical Decision Making Medical Decision Making [facility] Narrative: Patient has alcoholic ketoacidosis secondary to vomiting and poor oral intake fluids normal saline and dextrose drip recheck labs planned for admission Venous gases showed pH of 7.31 bicarb was 13 Differential Diagnosis Differential Diagnoses: The differential diagnosis associated with the presentation includes Alcoholic ketoacidosis stye/starvation acidosis/alcoholic gastritis Admission/Observation Consideration of admission/observation: Escalation of care including admission/observation considered Consult Healthcare Provider Management of the patient was discussed with: Hospitalist Lab Data MDM Lab Attestation statement: I reviewed the patient's lab results. 04/28/23 22:41 04/29/23 01:28 Labs: Lab Results 04/28/23 04/29/23 04/29/23 Range/Units 22:41 01:28 01:32 WBC 19.8 H (4.8-10.8) X10*3/uL RBC 4.56 D (4.20-5.50) X10*6/uL Hgb 14.5 D (12.0-16.0) g/dl Hct 42.8 D (37.0-47.0) % MCV 93.9 (80.0-98.0) fL MCH 31.8 (27.0-33.0) pg MCHC 33.9 (31.0-35.0) g/dl RDW 12.1 (11.0-16.0) % Plt Count 262 D (160-400) X10*3/uL MPV 9.1 L (9.4-12.3) fL Immature Gran % (Auto) 0.4 (0.0-0.4) % Neut % (Auto) 91.6 H (45-73) % Lymph % (Auto) 1.9 L (20-40) % [place] % (Auto) 5.8 (2-11) % Eos % (Auto) 0.0 (0-4) % Baso % (Auto) 0.3 (0-2) % Lymph # (Auto) 0.4 L (1.2-4.9) X10*3/uL [place] # (Auto) 1.1 (0.1-1.2) X10*3/uL Eos # (Auto) 0.0 (0.0-0.4) X10*3/uL Baso # (Auto) 0.1 (0.0-0.2) X10*3/uL Abs Immat Gran (auto) 0.08 H (0.00-0.03) X10*3/uL Absolute Neuts (auto) 18.2 H (2.0-8.3) x10*3/uL Absolute Nucleated RBC 0.000 (0.0-0.012) X10*3/uL Nucleated RBC % (auto) 0.0 (0.0-0.2) /100WBC Smear Tech's Comments VERIFIED VBG pH 7.31 L (7.32-7.43) VBG pCO2 25 mmHg VBG pO2 80 mmHg VBG HCO3 13 L (22-26) mmol/L VBG O2 Saturation 96.0 % VBG Base Excess -10.8 mmol/L Sodium 133 L 135 (135-145) mmol/L Potassium 3.6 3.6 (3.3-5.1) mmol/L Chloride 92 L 99 (96-108) mmol/L Carbon Dioxide 10 L* D 13 L (22-29) mmol/L Anion Gap 35 H 27 H (12-20) BUN 10 10 (9-16) mg/dL Creatinine 1.31 1.06 (0.5-1.4) mg/dL Estim Creat Clear Calc 52.9 65.3 Estimated GFR 48 > 60 Random Glucose 204 H 155 H (60-115) mg/dL Calcium 10.7 H D 9.3 D (8.4-10.2) mg/dL Magnesium 1.7 (1.6-2.6) mg/dL Total Bilirubin 1.6 H (0.0-1.0) mg/dL AST 51 H (5-31) U/L ALT 51 H (0-31) U/L Alkaline Phosphatase 78 (39-117) U/L Total Protein 9.7 H (6.5-8.0) g/dL Albumin 6.0 H (3.5-5.0) g/dL Lipase 21 (8-78) U/L Beta-Hydroxybutyrate 10.55 H (0.02-0.27) mmol/L Ethyl Alcohol < 10 mg/dL Influenza Type A (PCR) NEGATIVE (Negative) Influenza Type B (PCR) NEGATIVE (Negative) RSV RNA Qual (PCR) NEGATIVE (Negative) SARS-CoV-2 RNA (RT-PCR) NEGATIVE (Negative) Independent Interpretation I performed an independent interpretation of an: EKG Interpretation: Sinus tachycardia heart rate 135 beats per minute normal interval normal axis no acute ST changes no acute ischemia Critical Care Time Critical Care Time Critical Care Time: Yes Total Critical Care Time: 55 Attestation: The patient was critically ill with a high probability of imminent or life threatening deterioration. I spent greater than 60 minutes of discontinuous time evaluating the patient,delivering critical care at the bedside, discussing and evaluating pertinent data with consultants. Critical care time does not include time spent performing separately billable procedures or teaching. Total time spent performing critical care was55 minutes. Discharge Plan Discharge Clinical Impression: Alcoholic ketoacidosis Patient Disposition: Admitted As Inpatient
[2023-04-28] MEDS: 0.9 % Sodium Chloride 1,000 ML 999 ML IV (23:44)
[2023-04-28] MEDS: ondansetron HCL 4 MG/2 ML VIAL IVPUSH (23:44)
[2023-04-28] MEDS: Famotidine/PF 20 MG/2 ML VIAL IVPUSH (23:45)
[2023-04-28] MEDS: LORazepam 2 MG/ML VIAL 1 MG IVPUSH (23:52)
[2023-04-28 23:54] LABS: Ethanol < 10 mg/dL; Lipase 21 U/L (8-78)
[2023-04-29] VITALS (13 sets, daily range): BP systolic 101–131; BP diastolic 67–91; PULSE 112–150; RESP 14–20; TEMP 36.6–37.8; O2SAT 94–100
--- NOTE | 2023-04-29 | PC.NURSE ---
this rn assumed care of pt. pt reports onset of nausea and vomiting for 3 days. pt reports drinking alcohol for those 3 days as well. pt reports hx of alcohol withdrawal with admission. currently pt reports epigastric pain due to the vomiting and reports a flareup of GERD. pt sinus tachy on tele 128-140. provider at bedside to discuss pt care.
--- NOTE | 2023-04-29 00:04 | PC.NURSE ---
per provider verbal order hold dextrose until normal saline completes.
[2023-04-29 00:08] LABS: Beta-Hydroxybutyrate 10.55 mmol/L (0.02-0.27); Magnesium 1.7 mg/dL (1.6-2.6)
[2023-04-29] MEDS: Dextrose 5 % and 0.45 % NaCl 1,000 ML 125 ML IVCONT (01:10)
--- NOTE | 2023-04-29 01:13 | PC.NURSE ---
IV fluids hung at this time, pt tolerating well.
[2023-04-29] MEDS: 0.9 % Sodium Chloride 1,000 ML 999 ML IV (01:32)
--- NOTE | 2023-04-29 01:35 | PC.NURSE ---
pt reports not picking up prescription for naltrexone and reports she has not begun taken it yet.
[2023-04-29 01:36] LABS: Venous Blood Gas Refer to POC result
[2023-04-29 01:38] LABS: VBG Base Excess -10.8 mmol/L; VBG HCO3 13 mmol/L (22-26); VBG pCO2 25 mmHg; VBG pH 7.31 (7.32-7.43); VBG pO2 80 mmHg
[2023-04-29 01:47] LABS: Anion Gap 27 (12-20); Blood Urea Nitrogen 10 mg/dL (9-16); Calcium 9.3 mg/dL (8.4-10.2); Carbon Dioxide 13 mmol/L (22-29); Chloride 99 mmol/L (96-108); Creatinine Clr Calc Pharmacy 65.3; Estimated Glomerular Filt Rate > 60; Glucose Random 155 mg/dL (60-115); Potassium 3.6 mmol/L (3.3-5.1); Sodium 135 mmol/L (135-145)
[2023-04-29] MEDS: Prochlorperazine Edisylate 10 MG/2 ML VIAL IVPUSH (01:56)
[2023-04-29] MEDS: LORazepam 2 MG/ML VIAL 1 MG IVPUSH (01:58)
[2023-04-29] MEDS: Thiamine HCL 500 MG in 0.9 % Sodium Chloride 100 ML 210 MG IV (01:59)
[2023-04-29] MEDS: Potassium Chloride/H20 10 MEQ/100 ML PIGGYBACK 100 MEQ IV (02:01)
--- NOTE | 2023-04-29 02:03 | PC.NURSE ---
pt medicated per mar, provider aware of pt heart rate.
[2023-04-29] MEDS: PHENobarbitaL sodium 130 MG/ML IM ONCE 249.6 MG IM (04:28)
--- NOTE | 2023-04-29 04:28 | PC.NURSE ---
unable to scan phenobarbitol due to throwing throwing bottle into sharps when wasting medications.
--- NOTE | 2023-04-29 06:08 | PC.NURSE ---
respirations even and unlabored, pt sleeping.
--- NOTE | 2023-04-29 06:21 | P.HPHOSP_ITS ---
History of Present Illness Date of Service: 04/29/23 Attending physician on admission: Liban Oconnell Chief Complaint: Alcohol withdrawal Patient is a 28 year old white female who is a known alcoholic with prior admissions for alcohol withdrawal who presented to the emergency room last night complaining of persistent nausea, vomiting and upper abdominal pain. When I saw her, she was sedated after receiving Ativan and so was not able to give me any additional history. Her telemetry showed persistent sinus tachycardia with heart rates as fast as 125 bpm. Her lab work was notable for a leucocytosis of 19.8 k/mm3 and a serum bicarbonate of 10 mmol/L. She also has elevated serum BOH at 10.55 and mildly elevated liver enzymes with both AST & ALT at 51 U/L. She received 2 mg of IV Ativan since she was very tremulous and was then started on Phenobarbital load and IV fluids Admission was requested for continued care. Review of Systems 2 Review of Systems: Yes Unobtainable due to mental status [facility] Medical History Ulcer Pertinent family history: Unavailable at this time as patient is somnolent after receiving Ativan Social History Household Members: Significant Other Household Members Other:: boyfriend Housing: Apartment Do you presently have visiting nurse or other home services: No Alcohol intake: current Alcohol intake frequency: a few times a week Alcohol type: beer, wine and hard liquor Patient Tobacco Use Status: Never used Tobacco Smoked in Last 30 Days: No Use of substances other than those prescribed or required for medical reasons: No Substance Use Type: Marijuana Advance Directives: No Advance Directives Information Provided: No Patient : No service: No Meds Allergies Allergy/AdvReac Type Severity Reaction Status Date / Time amoxicillin Allergy Hives Verified 01/16/23 09:14 Penicillins Allergy Hives Verified 01/16/23 09:14 Home Medications Medication Instructions Recorded Confirmed Last Taken Type multivitamin 1 tab PO DAILY 03/21/23 04/29/23 Unknown History vitamin B complex 1 cap PO DAILY 03/21/23 04/29/23 Unknown History Physical Exam 2 Vital Signs and Narrative: Vital Signs: Last Vital Signs Temp 97.9 F 04/29/23 03:56 Pulse 114 H 04/29/23 04:47 Resp 18 04/29/23 03:56 BP 101/68 04/29/23 03:56 Pulse Ox 94 04/29/23 03:56 O2 Del Method Room Air 04/29/23 03:56 BMI result Body Mass Index 21.3 General: Ill appearing female in bed asleep. In no apparent distress Eyes: No pallor or jaundice. HENT: Moist oral mucus membranes. No oropharyngeal lesions. Neck: Supple. No cervical adenopathy. No JVD Cardiovascular: Tachycardic but regular. Normal s1/s2. No murmurs, rubs or gallops. No JVD. No peripheral edema. Respiratory: Normal respiratory effort with no accessory muscle use. CTAB. Gastrointestinal: Abdomen is soft, non-tender, non-distended. Normoactive bowel sounds. No hepatosplenomegally Extremities: No edema. No calf tenderness. Good peripheral pulses Skin - Warm/Dry. No rashes. No mottling. Capillary refill is < 2 seconds Neurological - Somnolent and so comprehensive neuro exam not undertaken at this time. Hematologic: No bleeding. No ecchymosis. No swollen Psychiatric: Somnolent so additional information not available at this time. . Results Labs 04/28/23 22:41 04/29/23 01:28 Labs: Laboratory Results - last 24 hr 04/28/23 04/29/23 04/29/23 22:41 01:28 01:32 MCV 93.9 MCH 31.8 MCHC 33.9 RDW 12.1 Plt Count 262 D MPV 9.1 L Immature Gran % (Auto) 0.4 Neut % (Auto) 91.6 H Lymph % (Auto) 1.9 L [place] % (Auto) 5.8 Eos % (Auto) 0.0 Baso % (Auto) 0.3 Lymph # (Auto) 0.4 L [place] # (Auto) 1.1 Eos # (Auto) 0.0 Baso # (Auto) 0.1 Abs Immat Gran (auto) 0.08 H Absolute Neuts (auto) 18.2 H Absolute Nucleated RBC 0.000 Nucleated RBC % (auto) 0.0 Smear Tech's Comments VERIFIED VBG pH 7.31 L VBG pCO2 25 VBG pO2 80 VBG HCO3 13 L VBG O2 Saturation 96.0 VBG Base Excess -10.8 Anion Gap 35 H 27 H Estim Creat Clear Calc 52.9 65.3 Estimated GFR 48 > 60 Random Glucose 204 H 155 H Calcium 10.7 H D 9.3 D Magnesium 1.7 Total Bilirubin 1.6 H AST 51 H ALT 51 H Alkaline Phosphatase 78 Total Protein 9.7 H Albumin 6.0 H Lipase 21 Beta-Hydroxybutyrate 10.55 H Ethyl Alcohol < 10 Influenza Type A (PCR) NEGATIVE Influenza Type B (PCR) NEGATIVE RSV RNA Qual (PCR) NEGATIVE SARS-CoV-2 RNA (RT-PCR) NEGATIVE Assessment and Plan (1) Alcoholic ketoacidosis: Status: Acute (2) Alcoholic gastritis without bleeding: Status: Acute (3) Alcoholic hepatitis without ascites: Status: Acute (4) Alcohol dependence with alcohol-induced disorder: Status: Acute (5) Hypophosphatemia: Status: Acute Plan 28 year old WF who has a history of alcohol abuse and prior admissions for alcohol withdrawal here with 1. Alcohol withdrawal - admit and continue with CIWA and Phenobarbital - continue IV fluids - encourage sobriety 2. Alcoholic ketoacidosis (AKA) - secondary to alcohol dependency - now with a serum bicarbonate of 10 mmol/L - continue IV fluids - replete electrolytes - encourage sobriety 3. Alcoholic gastritis - she reports upper abdominal pain with associated N/V - likely with alcoholic gastritis - start on a PPI - encourage sobriety 4. Alcoholic hepatitis - noted with mildly elevated AT & ALT - likely with alcoholic hepatitis - encourage sobriety DVT: SC Lovenox CODE STATUS: Full code Admission for at least 2 midnights for management of Alcohol withdrawal Quality Stroke Does the patient have a stroke diagnosis?: No VTE Prior VTE?: No VTE Risk Level:: Medical - moderate - high VTE Device Contraindication: N/A - Device Ordered VTE Drug Contraindication: N/A - Med Ordered
[2023-04-29] MEDS: Dextrose 5 % and 0.45 % NaCl 1,000 ML 250 ML IVCONT ×4 (07:33→20:12)
--- NOTE | 2023-04-29 07:48 | PC.NURSE ---
md manning made aware hr 140s sitting up in bed- ordering bolus. no distress. also aware CIWA 0- continuing w MAR phenobarb scheduled
[2023-04-29] MEDS: PHENobarbitaL sodium 130 MG/ML VIAL IM Q3Hx2 187.2 MG IM (07:51)
[2023-04-29] MEDS: Enoxaparin Sodium 40 MG/0.4 ML SYRINGE SUBCUT (07:52)
--- NOTE | 2023-04-29 08:37 | MHC.CM.PN ---
CM ATTEMPTED TO MEET WITH PT WHO WAS SLEEPING CM ATTEMPTED TO WAKE PT MULTIPLE TIMES WITH NO SUCCESS CM TO REVISIT
--- NOTE | 2023-04-29 08:41 | PHA.MEDREC ---
Pharmacy Consult ? Medication Reconciliation Pharmacy has completed the medication reconciliation.PHARMACY HAS REVIEWED MED REC DONE BY NURSING. NALTREXONE REPORTED NEVER STARTED BY PT SO EXCLUDED FROM HOME MED LIST.
[2023-04-29] MEDS: 0.9 % Sodium Chloride Flush 3 ML SYRINGE IVFLUSH ×2 (08:44→20:13)
[2023-04-29 09:31] LABS: MANUAL DIFF FLAG NO
[2023-04-29 09:35] LABS: Basophils Percent Auto 0.2 % (0-2); Hematocrit 31.5 % (37.0-47.0); Hemoglobin 10.7 g/dl (12.0-16.0); Imm Gran Abs Auto 0.06 X10*3/uL (0.00-0.03); Imm Gran Pct Auto 0.5 % (0.0-0.4); Lymphocytes Absolute Auto 0.8 X10*3/uL (1.2-4.9); Lymphocytes Percent Auto 6.8 % (20-40); Mean Corpuscular Hemoglobin 32.7 pg (27.0-33.0); Mean Corpuscular Volume 96.3 fL (80.0-98.0); Mean Platelet Volume 9.7 fL (9.4-12.3); Monocytes Absolute Auto 1.2 X10*3/uL (0.1-1.2); Monocytes Percent Auto 9.6 % (2-11); Neutrophils Absolute Auto 10.1 x10*3/uL (2.0-8.3); Neutrophils Percent Auto 82.9 % (45-73); Platelet Count 166 X10*3/uL (160-400); Red Blood Count 3.27 X10*6/uL (4.20-5.50); White Blood Count 12.2 X10*3/uL (4.8-10.8)
[2023-04-29 09:37] LABS: Venous Blood Gas Refer to POC result
[2023-04-29 09:38] LABS: VBG Base Excess -1.9 mmol/L; VBG HCO3 19 mmol/L (22-26); VBG pCO2 25 mmHg; VBG pO2 230 mmHg
--- NOTE | 2023-04-29 09:57 | PC.NURSE ---
1.4 mag, phos 0.7 per lab md manning messaged
[2023-04-29 09:58] LABS: Alanine Aminotransferase 29 U/L (0-31); Albumin Level 3.9 g/dL (3.5-5.0); Alkaline Phosphatase 49 U/L (39-117); Anion Gap 11 (12-20); Aspartate Amino Transferase 32 U/L (5-31); Beta-Hydroxybutyrate 1.05 mmol/L (0.02-0.27); Blood Urea Nitrogen 6 mg/dL (9-16); Calcium 8.3 mg/dL (8.4-10.2); Carbon Dioxide 20 mmol/L (22-29); Chloride 106 mmol/L (96-108); Creatinine Clr Calc Pharmacy 87.6; Estimated Glomerular Filt Rate > 60; Glucose Random 134 mg/dL (60-115); Magnesium 1.4 mg/dL (1.6-2.6); Phosphorus 0.7 mg/dL (2.7-4.5); Potassium 3.7 mmol/L (3.3-5.1); Sodium 133 mmol/L (135-145); Total Protein 6.1 g/dL (6.5-8.0)
--- NOTE | 2023-04-29 10:12 | PC.NURSE ---
md mannnig notified pt groggy and falling asleep on/off in between talking w rn. holding phenobarb. CIWA 0. pt back to sleep w/o distress or pain. breathing well. md manning notified
--- NOTE | 2023-04-29 14:16 | PC.NURSE ---
contacted cristi yan per studio operations engineer in charge to bring pt to floor
--- NOTE | 2023-04-29 16:46 | PM.EVENT ---
Event Note Date of Service: 04/29/23 Event Note: Chart reviewed patient examined. Agree with assessment and plan as outlined by sanjiv savage. Initially tachycardic this a.m. with CIWA 0; volume resuscitated with good heart rate response. Continue present therapies Time Spent With Patient Time: Total time managing care of this patient today ____ minutes.
[2023-04-29] MEDS: PHENobarbitaL 15 MG TABLET 45 MG PO (20:11)
[2023-04-29] MEDS: Acetaminophen 325 MG TABLET 650 MG PO (20:19)
[2023-04-30] MEDS: Dextrose 5 % and 0.45 % NaCl 1,000 ML 250 ML IVCONT (01:59)
[2023-04-30] MEDS: Magnesium Sulfate/H2O 2 GM/50 ML PIGGYBACK IV (02:35)
[2023-04-30 02:51] LABS: Alanine Aminotransferase 34 U/L (0-31); Albumin Level 3.7 g/dL (3.5-5.0); Alkaline Phosphatase 47 U/L (39-117); Anion Gap 14 (12-20); Aspartate Amino Transferase 69 U/L (5-31); Bilirubin Total 0.7 mg/dL (0.0-1.0); Blood Urea Nitrogen < 3 mg/dL (9-16); Calcium 8.4 mg/dL (8.4-10.2); Carbon Dioxide 22 mmol/L (22-29); Chloride 102 mmol/L (96-108); Creatinine Clr Calc Pharmacy 109.9; Estimated Glomerular Filt Rate > 60; Glucose Random 103 mg/dL (60-115); Magnesium 1.7 mg/dL (1.6-2.6); Phosphorus < 0.7 mg/dL (2.7-4.5); Potassium 4.1 mmol/L (3.3-5.1); Sodium 134 mmol/L (135-145); Total Protein 6.6 g/dL (6.5-8.0)
[2023-04-30] MEDS: Potassium Phosphate/NS 15 MMOL/250 ML PLAST..BAG 62.5 MMOL IV ×3 (03:34→13:59)
[2023-04-30 03:37] VITALS: BP 106/63; PULSE 101; RESP 18; TEMP 37.6; O2SAT 98
[2023-04-30] MEDS: Enoxaparin Sodium 40 MG/0.4 ML SYRINGE SUBCUT (05:55)
--- NOTE | 2023-04-30 06:18 | PC.NURSE ---
Assumed care of pt at 19:15. Pt A&Ox4. On CIWA, max score 3 in the evening. Continues on scheduled phenobarbital protocol. On tele, NSR-ST 80?s to low 100?s at rest, sinus tach into 130?s when OOB ambulating to bathroom, pt consistently asymptomatic and HR improves to prior HR with rest. notified. Pt initially on D5/0.45%NS at 250ml/hr. Covering Dr. Oconnell messaged to discuss plan of care re: IV fluids and electrolytes. Most recent labs from morning reviewed by RN, notable for critical phos 0.[address] Oconnell notified. Orders placed for repletions. Stat labs first obtained to reassess CMP, Mg, Phos. Phos critical less than 0.7 per lab phone critical report at 02:51, MD notified as soon as received. Other lab results back as follows discussed with : Na 134, K 4.1, Mg 1.7, BUN less than 3. orders to discontinue IV fluids given labs and pt adequately taking po this morning and electrolyte repletion orders adjusted. Mg given, NaPhos infusing at this time. Will continue to monitor for remainder of flex o writer operator?s scheduled care.
[2023-04-30 07:09] VITALS: BP 117/71; PULSE 91; RESP 18; TEMP 36.9; O2SAT 97
[2023-04-30] MEDS: PHENobarbitaL 15 MG TABLET 45 MG PO ×2 (09:11→21:22)
[2023-04-30] MEDS: 0.9 % Sodium Chloride Flush 3 ML SYRINGE IVFLUSH ×2 (09:12→21:23)
[2023-04-30 11:15] VITALS: BP 123/71; PULSE 98; RESP 18; TEMP 36.4; O2SAT 99
--- NOTE | 2023-04-30 14:47 | P.PNIM_ITS ---
Subjective Subjective Date of Service: 05/08/23 Interval History: No acute issues overnight. No evidence of withdrawal. Tolerant phenobarb protocol Review of Systems Denies chest pain Denies nausea vomiting diarrhea Denies shortness of breath Denies fever chills Physical Exam 2 Vital Signs: Vital Signs: Last Vital Signs Temp 97.6 F 04/30/23 11:15 Pulse 98 04/30/23 11:15 Resp 18 04/30/23 11:15 BP 123/71 04/30/23 11:15 Pulse Ox 99 04/30/23 11:15 O2 Del Method Room Air 04/30/23 11:15 BMI result Body Mass Index 21.3 Const: Other: No acute issues. Resting quietly Resp: Other: Clear to auscultation bilaterally no rales rhonchi or wheezes Cardio: Other: No S4; positive S1-S2; no S3 murmurs rubs or gallops GI: Other: Soft nontender nondistended normoactive bowel sounds Neuro: Other: Cranial nerves 2-12 grossly intact as tested. Motor is 5/5 all extremities. Sensation is intact. Cognition is appropriate Extrem: Other: No edema bilaterally Objective Data Active Medications Acetaminophen (Acetaminophen 325 Mg Tablet) 650 mg PO Q6H PRN PRN Reason: Pain, Mild (Pain Scale 1-3) Last Admin: 04/29/23 20:19 Dose: 650 mg Documented By: DEMOND Enoxaparin Sodium (Enoxaparin Sodium 40 Mg/0.4 Ml Syringe) 40 mg SUBCUT Q24H COUNT INCLUDES THE [facility] Last Admin: 04/30/23 05:55 Dose: 40 mg Documented By: DEMOND Potassium Phosphate (Kphos) 15 mmol in 250 mls @ 62.5 mls/hr IV Q4H COUNT INCLUDES THE [facility] Stop: 04/30/23 23:29 Last Admin: 04/30/23 13:59 Dose: 62.5 mls/hr Documented By: TIFFANIE Ondansetron HCl (Ondansetron Hcl 4 Mg/2 Ml Vial) 4 mg IVPUSH Q8H PRN PRN Reason: Nausea and Vomiting Pharmacy Consult (Consult Rx Etoh Phenob Im/Po) 1 each MISCELLANE ONCE PRN; Protocol PRN Reason: Consult order Phenobarbital (Phenobarbital 15 Mg Tablet) 45 mg PO BID COUNT INCLUDES THE [facility]; Protocol Stop: 05/01/23 09:01 Last Admin: 04/30/23 09:11 Dose: 45 mg Documented By: TIFFANIE Phenobarbital (Phenobarbital 30 Mg Tablet) 30 mg PO BID COUNT INCLUDES THE [facility]; Protocol Stop: 05/03/23 09:01 Phenobarbital (Phenobarbital 30 Mg Tablet) 30 mg PO DAILY COUNT INCLUDES THE [facility]; Protocol Stop: 05/05/23 09:01 Sodium Chloride (0.9 % Sodium Chloride Flush 3 Ml Syringe) 3 ml IVFLUSH QSHIFT COUNT INCLUDES THE [facility] Last Admin: 04/30/23 09:12 Dose: 3 ml Documented By: TIFFANIE Labs 05/01/23 06:47 05/02/23 06:57 Labs: Laboratory Results - last 24 hr 04/30/23 02:05 Anion Gap 14 Estim Creat Clear Calc 109.9 Estimated GFR > 60 Random Glucose 103 Calcium 8.4 Phosphorus < 0.7 L* Magnesium 1.7 Total Bilirubin 0.7 AST 69 H ALT 34 H Alkaline Phosphatase 47 Total Protein 6.6 Albumin 3.7 Assessment and Plan (1) Alcoholic ketoacidosis: Status: Acute (2) Hypophosphatemia: Status: Acute Plan 28 year old WF who has a history of alcohol abuse and prior admissions for alcohol withdrawal here with 1. Alcohol withdrawal - CIWA protocol.. Phenobarbital - continue IV fluids - encourage sobriety -addiction Medicine consult 2. Alcoholic ketoacidosis (AKA) - secondary to alcohol dependency - resolved with volume 3. Hypophosphatemia -NPO until repleted -check level this p.m. - encourage sobriety 4. Alcoholic hepatitis - noted with mildly elevated AT & ALT - likely with alcoholic hepatitis - encourage sobriety DVT: SC Lovenox CODE STATUS: Full code Requires ongoing hospitalization to complete alcohol withdrawal protocol and replete phosphorus Quality Stroke Does the patient have a stroke diagnosis?: No VTE Prior VTE?: No VTE Risk Level:: Medical - moderate - high VTE Device Contraindication: N/A - Device Ordered VTE Drug Contraindication: N/A - Med Ordered
[2023-04-30 16:00] VITALS: BP 124/77; PULSE 102; RESP 18; TEMP 36.4; O2SAT 100
[2023-04-30 18:59] LABS: Phosphorus 3.1 mg/dL (2.7-4.5)
[2023-04-30 20:00] VITALS: BP 116/72; PULSE 103; RESP 18; TEMP 36.8; O2SAT 100
[2023-05-01] VITALS (7 sets, daily range): BP systolic 103–132; BP diastolic 56–79; PULSE 87–105; RESP 16–20; TEMP 36.1–37.5; O2SAT 98–100
[2023-05-01] MEDS: Enoxaparin Sodium 40 MG/0.4 ML SYRINGE SUBCUT (05:03)
[2023-05-01 07:32] LABS: MANUAL DIFF FLAG NO
[2023-05-01 07:46] LABS: Basophils Percent Auto 0.8 % (0-2); Eosinophils Absolute Auto 0.1 X10*3/uL (0.0-0.4); Eosinophils Percent Auto 0.9 % (0-4); Hematocrit 32.7 % (37.0-47.0); Imm Gran Abs Auto 0.02 X10*3/uL (0.00-0.03); Imm Gran Pct Auto 0.4 % (0.0-0.4); Lymphocytes Absolute Auto 1.2 X10*3/uL (1.2-4.9); Lymphocytes Percent Auto 23.1 % (20-40); Mean Corpuscular HGB Conc 33.6 g/dl (31.0-35.0); Mean Corpuscular Hemoglobin 31.8 pg (27.0-33.0); Mean Corpuscular Volume 94.5 fL (80.0-98.0); Mean Platelet Volume 10.1 fL (9.4-12.3); Monocytes Absolute Auto 0.4 X10*3/uL (0.1-1.2); Monocytes Percent Auto 7.3 % (2-11); Neutrophils Absolute Auto 3.6 x10*3/uL (2.0-8.3); Neutrophils Percent Auto 67.5 % (45-73); Platelet Count 145 X10*3/uL (160-400); Red Blood Count 3.46 X10*6/uL (4.20-5.50); Red Cell Distribution Width 11.5 % (11.0-16.0); White Blood Count 5.3 X10*3/uL (4.8-10.8)
[2023-05-01 08:08] LABS: Alanine Aminotransferase 49 U/L (0-31); Albumin Level 3.9 g/dL (3.5-5.0); Alkaline Phosphatase 50 U/L (39-117); Anion Gap 12 (12-20); Aspartate Amino Transferase 96 U/L (5-31); Bilirubin Total 0.7 mg/dL (0.0-1.0); Blood Urea Nitrogen 3 mg/dL (9-16); Calcium 8.9 mg/dL (8.4-10.2); Carbon Dioxide 25 mmol/L (22-29); Chloride 104 mmol/L (96-108); Creatinine Clr Calc Pharmacy 128.3; Estimated Glomerular Filt Rate > 60; Glucose Fasting 95 mg/dL (60-99); Phosphorus 3.2 mg/dL (2.7-4.5); Potassium 2.9 mmol/L (3.3-5.1); Sodium 138 mmol/L (135-145); Total Protein 6.2 g/dL (6.5-8.0)
[2023-05-01 09:07] LABS: Magnesium 1.9 mg/dL (1.6-2.6)
[2023-05-01] MEDS: PHENobarbitaL 15 MG TABLET 45 MG PO (09:49)
[2023-05-01] MEDS: Potassium Chloride ER 20 MEQ TAB.ER.PRT 40 MEQ PO ×2 (09:49→15:55)
[2023-05-01] MEDS: Potassium Chloride/H20 10 MEQ/100 ML PIGGYBACK 100 MEQ IV ×2 (09:50→12:30)
[2023-05-01] MEDS: 0.9 % Sodium Chloride Flush 3 ML SYRINGE IVFLUSH ×3 (09:50→21:04)
--- NOTE | 2023-05-01 11:43 | MHC.RECOVRN ---
Met with pt in 476 after consult placed to Addiction Medicine for alcohol use. Pt had presented to the ED with poor po intake, N/V, and GERD. Upon evaluation, pt admitted to the hospital for treatment of alcohol withdrawal, AKA, and gastritis. Pt sitting in bed, awake, alert, engages in conversation but guarded. Pt reports alcohol use, 3+ vodka drinks daily since during COVID. Pt is not currently employed, lives with boyfriend of 5 years. Pt reports some days she begins drinking in the morning, other days it is later in the day. Pt difficult to engage in conversation regarding alcohol use. Pt has not received tx for AUD in the past. Pt had been prescribed naltrexone, however, prescription at pharmacy before pt could pick it up. Discussed BRISEYDA, pt would like to initiate naltrexone and receive script via meds to bed during discharge from hospital. Pt would also like to connect to the [facility] for follow up. Pt provided with written recovery resources as well as t/w contact information if needed. Pt denies questions or concerns for t/w. Discussed with Maria Luz Pelletier APRN.
--- NOTE | 2023-05-01 12:13 | MHC.CM.PN ---
EMR REVIEWED, PT W/ETOH WITHDRAWAL, PER MULTIDISCIPLINARY ROUNDS PT NOT YET MEDICALLY CLEARED FOR DC, CM WILL CONT TO FOLLOW DC NEEDS.
--- NOTE | 2023-05-01 13:18 | HO.PM.IMPN ---
Subjective Subjective Date of Service: 05/01/23 Interval History: K low withdrawal symptoms controlled Review of Systems Review of Systems: Yes all other systems are reviewed and are negative Physical Exam Vital Signs: Vital Signs: Last Vital Signs Temp 97.6 F 05/01/23 11:10 Pulse 100 05/01/23 11:10 Resp 18 05/01/23 11:10 BP 114/62 05/01/23 11:10 Pulse Ox 100 05/01/23 11:10 O2 Del Method Room Air 05/01/23 11:10 BMI result Body Mass Index 21.3 Gen: in no acute distress HEENT: sclera anicteric, moist mucus membranes Neck: supple Lungs: clear to auscultation bilaterally Heart: regular rate and rhythm, no murmurs Abd: soft, non-tender, non-distended Ext: no edema Skin: warm/well-perfused Neuro: alert and oriented x3, no focal findings Psych: appropriate affect Objective Data Active Medications Acetaminophen (Acetaminophen 325 Mg Tablet) 650 mg PO Q6H PRN PRN Reason: Pain, Mild (Pain Scale 1-3) Last Admin: 04/29/23 20:19 Dose: 650 mg Documented By: DEMOND Enoxaparin Sodium (Enoxaparin Sodium 40 Mg/0.4 Ml Syringe) 40 mg SUBCUT Q24H [facility] Last Admin: 05/01/23 05:03 Dose: 40 mg Documented By: ANDREINA Ondansetron HCl (Ondansetron Hcl 4 Mg/2 Ml Vial) 4 mg IVPUSH Q8H PRN PRN Reason: Nausea and Vomiting Pharmacy Consult (Consult Rx Etoh Phenob Im/Po) 1 each MISCELLANE ONCE PRN; Protocol PRN Reason: Consult order Phenobarbital (Phenobarbital 30 Mg Tablet) 30 mg PO BID [facility]; Protocol Stop: 05/03/23 09:01 Phenobarbital (Phenobarbital 30 Mg Tablet) 30 mg PO DAILY [facility]; Protocol Stop: 05/05/23 09:01 Sodium Chloride (0.9 % Sodium Chloride Flush 3 Ml Syringe) 3 ml IVFLUSH QSHIFT [facility] Last Admin: 05/01/23 09:50 Dose: 3 ml Documented By: MARKY Labs 05/01/23 06:47 05/01/23 06:47 Labs: Laboratory Results - last 24 hr 04/30/23 05/01/23 18:15 06:47 MCV 94.5 MCH 31.8 MCHC 33.6 RDW 11.5 Plt Count 145 L MPV 10.1 Immature Gran % (Auto) 0.4 Neut % (Auto) 67.5 Lymph % (Auto) 23.1 [place] % (Auto) 7.3 Eos % (Auto) 0.9 Baso % (Auto) 0.8 Lymph # (Auto) 1.2 [place] # (Auto) 0.4 Eos # (Auto) 0.1 Baso # (Auto) 0.0 Abs Immat Gran (auto) 0.02 Absolute Neuts (auto) 3.6 Absolute Nucleated RBC 0.000 Nucleated RBC % (auto) 0.0 Anion Gap 12 Estim Creat Clear Calc 128.3 Estimated GFR > 60 Fasting Glucose 95 Calcium 8.9 Phosphorus 3.1 3.2 Magnesium 1.9 Total Bilirubin 0.7 AST 96 H ALT 49 H Alkaline Phosphatase 50 Total Protein 6.2 L Albumin 3.9 Assessment and Plan (1) Alcohol dependence with alcohol-induced disorder: Status: Acute Plan d3 28yo F with AUD admitted for withdrawal EtOH withdrawal - phenobarbital taper, vitamins, Addiction Medicine consult EtOH ketoacidosis - resolved after volume repletion hypoK - replete/recheck level in AM hypoPO4 - repleted EtOH hepatitis - mild VTE ppx - LMWH dispo - eventual home In my clinical judgment, the patient requires continued inpatient hospitalization for the following reasons: inpt EtOH withdrawal treatment Total time managing care of this patient today: 35 minutes. Quality Stroke Does the patient have a stroke diagnosis?: No VTE Prior VTE?: No VTE Risk Level:: Medical - moderate - high VTE Device Contraindication: N/A - Device Ordered VTE Drug Contraindication: N/A - Med Ordered
--- NOTE | 2023-05-01 15:08 | MHC.RECOVRN ---
Pt has [facility] follow up appointment on 05/13/23 at 1:30PM with Maria Luz Pelletier APRN.
--- NOTE | 2023-05-01 17:16 | PM.EVENT ---
Event Note Date of Service: 05/01/23 Event Note: Addiction consult placed for patient with AUD Seen by security investigator. reported previously being prescribed Naltrexone and would like to start again prior to discharge. Plan: Naltrexone 25mg QD X3 days then increase to one tab daily. Follow up appt with [facility] already scheduled Time Spent With Patient Time: Total time managing care of this patient today ____ minutes.
[2023-05-01] MEDS: PHENobarbitaL 30 MG TABLET PO (21:04)
[2023-05-02 03:31] VITALS: BP 124/63; PULSE 89; RESP 18; TEMP 36.2; O2SAT 100
[2023-05-02 07:20] VITALS: BP 125/56; PULSE 89; RESP 18; TEMP 36.6; O2SAT 97
[2023-05-02 07:46] LABS: Anion Gap 12 (12-20); Blood Urea Nitrogen 5 mg/dL (9-16); Calcium 9.8 mg/dL (8.4-10.2); Carbon Dioxide 27 mmol/L (22-29); Chloride 102 mmol/L (96-108); Creatinine Clr Calc Pharmacy 103.4; Estimated Glomerular Filt Rate > 60; Glucose Random 95 mg/dL (60-115); Magnesium 1.8 mg/dL (1.6-2.6); Potassium 4.2 mmol/L (3.3-5.1); Sodium 137 mmol/L (135-145)
[2023-05-02 08:04] LABS: HBS Num1 0.83 mIU/mL (0-7.99); HBc Num1 0.06 S/CO (0.00-0.79); HBsAGNum1 0.28 S/CO (0.00-0.99); Hepatitis B Core Antibody Nonreactive (Nonreactive); Hepatitis B Surface Antigen Negative (Negative); ~HepC Num1 0.05 S/CO (0.00-0.79); ~Hepatitis B Surface Antibody NONREACTIVE (Nonreactive); ~Hepatitis C Antibody Nonreactive (Nonreactive)
[2023-05-02] MEDS: Thiamine HCL 100 MG TABLET PO (08:51)
[2023-05-02] MEDS: Folic Acid 1 MG TABLET PO (08:51)
[2023-05-02] MEDS: Naltrexone HCl 50 MG TABLET 25 MG PO (08:51)
[2023-05-02] MEDS: PHENobarbitaL 30 MG TABLET PO (08:51)
[2023-05-02] MEDS: Multivitamin TABLET 1 TAB PO (08:51)
[2023-05-02] MEDS: 0.9 % Sodium Chloride Flush 3 ML SYRINGE IVFLUSH (08:53)
[2023-05-02 11:00] VITALS: BP 115/63; PULSE 96; RESP 18; TEMP 36.2; O2SAT 98
--- NOTE | 2023-05-02 11:30 | PM.DS ---
DS: Providers Provider Date of Service: 05/02/23 Date of admission: 04/29/23 06:13 Date of discharge: 05/02/23 Primary care physician: None Physician Consults: 04/30/23 14:47 Addiction Medicine Stat Consulting Provider: Addiction Covering Reason for consultation: EToH Has provider been notified: No DS: Diagnosis Discharge Diagnosis (1) Alcohol dependence with alcohol-induced disorder: Status: Acute (2) Alcoholic hepatitis without ascites: Status: Acute (3) Alcoholic gastritis without bleeding: Status: Acute (4) Alcoholic ketoacidosis: Status: Acute (5) Hypokalemia: Status: Acute (6) Hypophosphatemia: Status: Acute (7) Alcohol use disorder: Status: Acute (8) Alcohol withdrawal: Status: Resolved DS: Summary Hospital Course Hospital Course: From the history and physical by the admitting hospitalist, Liban Oconnell MD, 04/29/23: Patient is a 28 year old white female who is a known alcoholic with prior admissions for alcohol withdrawal who presented to the emergency room last night complaining of persistent nausea, vomiting and upper abdominal pain. When I saw her, she was sedated after receiving Ativan and so was not able to give me any additional history. Her telemetry showed persistent sinus tachycardia with heart rates as fast as 125 bpm. Her lab work was notable for a leucocytosis of 19.8 k/mm3 and a serum bicarbonate of 10 mmol/L. She also has elevated serum BOH at 10.55 and mildly elevated liver enzymes with both AST & ALT at 51 U/L. She received 2 mg of IV Ativan since she was very tremulous and was then started on Phenobarbital load and IV fluids Admission was requested for continued care. 28yo F with AUD admitted to the hospitalist service for EtOH withdrawal with ketoacidosis. She was treated with phenobarbital taper with resolution of withdrawal symptoms. Addiction Medicine was consulted and she was started on naltrexone. Ketoacidosis resolved with IV fluid resuscitation. Low potassium and phosphorous were repleted. She had mild EtOH hepatitis not requiring steroids or pentoxyfilline. She was discharged on naltrexone and vitamins. Follow-up with [facility] was arranged for 05/13/23 at 13:30. Time Attestation Discharge coordination time: Greater than 30 minutes Quality: Safe Use of Opioids Does Pt have an Active Cancer Diagnosis on the Problem List?: No Quality: Stroke Does the patient have a stroke diagnosis?: No Physical Exam Vital Signs: Vital Signs: Last Vital Signs Temp 97.2 F 05/02/23 11:00 Pulse 96 05/02/23 11:00 Resp 18 05/02/23 11:00 BP 115/63 05/02/23 11:00 Pulse Ox 98 05/02/23 11:00 O2 Del Method Room Air 05/02/23 11:00 BMI result Body Mass Index 21.3 Gen: in no acute distress HEENT: sclera anicteric, moist mucus membranes Neck: supple Lungs: clear to auscultation bilaterally Heart: regular rate and rhythm, no murmurs Abd: soft, non-tender, non-distended Ext: no edema Skin: warm/well-perfused Neuro: alert and oriented x3, no focal findings Psych: appropriate affect DS: Data Data Completed and Pending Completed studies during hospitalization [Text1]: Laboratory Results WBC 5.3 X10*3/uL (4.8-10.8) 05/01/23 06:47 RBC 3.46 X10*6/uL (4.20-5.50) L 05/01/23 06:47 Hgb 11.0 g/dl (12.0-16.0) L 05/01/23 06:47 Hct 32.7 % (37.0-47.0) L 05/01/23 06:47 MCV 94.5 fL (80.0-98.0) 05/01/23 06:47 MCH 31.8 pg (27.0-33.0) 05/01/23 06:47 MCHC 33.6 g/dl (31.0-35.0) 05/01/23 06:47 RDW 11.5 % (11.0-16.0) 05/01/23 06:47 Plt Count 145 X10*3/uL (160-400) L 05/01/23 06:47 MPV 10.1 fL (9.4-12.3) 05/01/23 06:47 Immature Gran % (Auto) 0.4 % (0.0-0.4) 05/01/23 06:47 Neut % (Auto) 67.5 % (45-73) 05/01/23 06:47 Lymph % (Auto) 23.1 % (20-40) 05/01/23 06:47 Pierce % (Auto) 7.3 % (2-11) 05/01/23 06:47 Eos % (Auto) 0.9 % (0-4) 05/01/23 06:47 Baso % (Auto) 0.8 % (0-2) 05/01/23 06:47 Lymph # (Auto) 1.2 X10*3/uL (1.2-4.9) 05/01/23 06:47 Pierce # (Auto) 0.4 X10*3/uL (0.1-1.2) 05/01/23 06:47 Eos # (Auto) 0.1 X10*3/uL (0.0-0.4) 05/01/23 06:47 Baso # (Auto) 0.0 X10*3/uL (0.0-0.2) 05/01/23 06:47 Abs Immat Gran (auto) 0.02 X10*3/uL (0.00-0.03) 05/01/23 06:47 Absolute Neuts (auto) 3.6 x10*3/uL (2.0-8.3) 05/01/23 06:47 Absolute Nucleated RBC 0.000 X10*3/uL (0.0-0.012) 05/01/23 06:47 Nucleated RBC % (auto) 0.0 /100WBC (0.0-0.2) 05/01/23 06:47 Smear Tech's Comments VERIFIED 04/28/23 22:41 Hold Purple Top SEE NOTE 05/02/23 06:57 VBG pH 7.50 (7.32-7.43) H 04/29/23 09:31 VBG pCO2 25 mmHg 04/29/23 09:31 VBG pO2 230 mmHg 04/29/23 09:31 VBG HCO3 19 mmol/L (22-26) L 04/29/23 09:31 VBG O2 Saturation 100.0 % 04/29/23 09:31 VBG Base Excess -1.9 mmol/L 04/29/23 09:31 Sodium 137 mmol/L (135-145) 05/02/23 06:57 Potassium 4.2 mmol/L (3.3-5.1) D 05/02/23 06:57 Chloride 102 mmol/L (96-108) 05/02/23 06:57 Carbon Dioxide 27 mmol/L (22-29) 05/02/23 06:57 Anion Gap 12 (12-20) 05/02/23 06:57 BUN 5 mg/dL (9-16) L 05/02/23 06:57 Creatinine 0.67 mg/dL (0.5-1.4) 05/02/23 06:57 Estim Creat Clear Calc 103.4 05/02/23 06:57 Estimated GFR > 60 05/02/23 06:57 Random Glucose 95 mg/dL (60-115) 05/02/23 06:57 Fasting Glucose 95 mg/dL (60-99) 05/01/23 06:47 Calcium 9.8 mg/dL (8.4-10.2) D 05/02/23 06:57 Phosphorus 3.2 mg/dL (2.7-4.5) 05/01/23 06:47 Magnesium 1.8 mg/dL (1.6-2.6) 05/02/23 06:57 Total Bilirubin 0.7 mg/dL (0.0-1.0) 05/01/23 06:47 AST 96 U/L (5-31) H 05/01/23 06:47 ALT 49 U/L (0-31) H 05/01/23 06:47 Alkaline Phosphatase 50 U/L (39-117) 05/01/23 06:47 Total Protein 6.2 g/dL (6.5-8.0) L 05/01/23 06:47 Albumin 3.9 g/dL (3.5-5.0) 05/01/23 06:47 Lipase 21 U/L (8-78) 04/28/23 22:41 Beta-Hydroxybutyrate 1.05 mmol/L (0.02-0.27) H 04/29/23 09:25 Ethyl Alcohol < 10 mg/dL 04/28/23 22:41 Hep Bs Antigen Negative (Negative) 05/02/23 06:57 Hep Bs Antibody NONREACTIVE (Nonreactive) 05/02/23 06:57 Hep B Core Total Ab Nonreactive (Nonreactive) 05/02/23 06:57 Hepatitis C Ab (EIA) Nonreactive (Nonreactive) 05/02/23 06:57 Influenza Type A (PCR) NEGATIVE (Negative) 04/28/23 22:41 Influenza Type B (PCR) NEGATIVE (Negative) 04/28/23 22:41 RSV RNA Qual (PCR) NEGATIVE (Negative) 04/28/23 22:41 SARS-CoV-2 RNA (RT-PCR) NEGATIVE (Negative) 04/28/23 22:41 Discharge Plan Discharge Anticipated Discharge Date/Time: 05/02/23 11:17 Patient Disposition: Home, Self-Care Discharge Diagnosis: alcohol use disorder with withdrawal syndrome alcoholic ketoacidosis hypophosphatemia hypokalemia Referrals: [facility] Sherif Willis [Provider Group] - 1 Week PhysicianRishabh [Primary Care Provider] - 1 Week Maria Luz Pelletier CNP [Nurse Practitioner] - 1 Week Discharge Medications: New naltrexone 50 mg tablet 50 mg PO DAILY Qty: 30 0RF Rx Instructions: Take 1/2 tab for 2 days then increase to one tab daily thiamine mononitrate (vit B1) 100 mg Tablet 100 mg PO DAILY Qty: 30 0RF Continued multivitamin Tablet 1 tab PO DAILY Qty: 30 0RF omeprazole 40 mg Capsule,Delayed Release(Dr/Ec) 40 mg PO DAILY@0630 Qty: 30 0RF vitamin B complex Capsule 1 cap PO DAILY Qty: 30 0RF Discharge Orders: Discharge Order (Routine); Ordered 05/02/23 Ordered By: Rai Leal Diet: Advance to usual diet Activity on Discharge: As tolerated Stand Alone Forms: Patient Portal Discharge page Care Plan Goals: sobriety Health Concerns: alcohol use disorder with withdrawal syndrome alcoholic ketoacidosis hypophosphatemia hypokalemia Plan of Treatment: avoid alcohol. furthermore, you were given phenobarbital which has a long half-life. the combination of alcohol and phenobarbital can cause dangerous sedation. take naltrexone as prescribed and follow up with Maria Luz Pelletier at [facility]: [facility], [address] [place] [address] [id number], Establish primary care ROSALINA. Please follow up with your primary care doctor within 1 week. Return to the hospital if you experience recurrent or worsening symptoms. Assessment: See Discharge Summary.
--- NOTE | 2023-05-02 11:45 | MHC.CM.PN ---
Pt is medically cleared for D/C home self-care. Pts sister will transport her home.
== END 2023-05-02 13:49 | disposition home or self-care (01) | DRG 241 ==
LOC: HO.ED 04-29 01:47 → HO.EDOVER 04-29 06:19 → HO.IMC 04-29 14:00
PROVIDERS: Hospitalist; Physician Assistant; Admitting Provider Internal Medicine; Emergency Provider Internal Medicine; Visit Provider Family Medicine
DX: K29.20 Alcoholic gastritis without bleeding (principal); E87.29 Other acidosis; K70.10 Alcoholic hepatitis without ascites; E83.39 Other disorders of phosphorus metabolism; E87.6 Hypokalemia; F10.239 Alcohol dependence with withdrawal, unspecified; Z20.822 Contact with and (suspected) exposure to COVID-19; Z79.899 Other long term (current) drug therapy
CPT/HCPCS: 0241U; 36415; 80048; 80053; 80307; 82010; 82803; 83690; 83735; 84100; 85025; 86704; 86706; 86803; 87340; 93005; 99285; J0737; J1650; J2060; J2405; J2560; J3411; J3475; J3480; J7120

== ENCOUNTER → 2023-04-28 23:51 | Outpatient (BNV) | payer OTHER, SELFPAY | PROVIDERS: Admitting Provider Internal Medicine; Emergency Provider Internal Medicine; Visit Provider Internal Medicine | DX: R00.0 Tachycardia, unspecified (principal) | CPT/HCPCS: 93010 ==

== ENCOUNTER → 2023-04-29 06:13 | Outpatient (BNV) | payer OTHER, SELFPAY | PROVIDERS: Admitting Provider Internal Medicine; Emergency Provider Internal Medicine; Visit Provider Internal Medicine | DX: F10.230 Alcohol dependence with withdrawal, uncomplicated (principal); F10.29 Alcohol dependence with unspecified alcohol-induced disorder; K70.10 Alcoholic hepatitis without ascites; K29.20 Alcoholic gastritis without bleeding; E87.29 Other acidosis; E83.39 Other disorders of phosphorus metabolism | CPT/HCPCS: 99223; 99232; 99233; 99239; 99499 ==

== ENCOUNTER 2023-05-13 13:30 | Outpatient (AMB) | payer OTHER, SELFPAY ==
--- NOTE | 2023-05-13 13:32 | A.OFFVIS_ITS ---
Intake Vital Signs 05/13/23 13:37 BP 106/70 Blood Pressure Location Lt radial Position Sitting Pulse 103 H Pulse Source Pulse Oximeter Pulse Oximetry (%) 98 Oxygen Delivery Method Room Air Intake Visit Reasons: MAT Intake Intake Note: THE PATIENT PRESENTS FOR A MAT INTAKE Head Worker Required: No Allergies amoxicillin Allergy (Verified 05/13/23 13:38) Hives Penicillins Allergy (Verified 05/13/23 13:38) Hives HPI MAT Intake HPI Details Patient presents for intake and evaluation of alcohol use Recently admitted to [facility] for alcohol related gastrisis Drinking increased during cov and then increased over the last year Last drink on Saturday less than half of a hard seltzer Previously drinking 3-5 nips daily of 100 proof vodka Three admissions related to alcohol use December, February and most recent Health History No chronic health issues No PCP at this time --last visit was about 5 years ago -omeprazole -multivitamin -vitamin B1 -probiotic Behavioral Health History -Reports dx of ADHD -Vyvanse during alvarado ege (hand glass cutter prescribed) -No treatment -mom with depression and anxiety -Family history of AUD on both sides of family and both parents Social History: Lives with boyfriend Not working at the moment--October last employed -completed Bachelors in communication an d psychology [facility] Medical History (Updated 05/14/23 @ 13:51 by Maria Luz Pelletier CNP) Alcohol use disorder Ulcer Social History Household Members: Significant Other Household Members Other:: boyfriend Housing: House Do you presently have visiting nurse or other home services: No Alcohol intake: current Alcohol intake frequency: a few times a week Alcohol type: beer, wine and hard liquor Comment: Pt declines bedalarm. Gait and balance steady Patient Tobacco Use Status: Never used Tobacco Substance Use Type: Marijuana service: No Review of Systems Const Reports as per HPI Psych Reports anxiety and Reports depression Physical Exam Vital Signs: Last Vital Signs Pulse 103 H 05/13/23 13:37 BP 106/70 05/13/23 13:37 Pulse Ox 98 05/13/23 13:37 Oxygen Delivery Method Room Air 05/13/23 13:37 Const General: cooperative, healthy appearing and anxious Orientation/consciousness: patient oriented x3 Limitations: no limitations Neuro General: patient oriented x3 Psych Appearance: well kempt Speech and movement: Clear speech present Affect: Sad affect present and Anxious affect present Attitude: cooperative Thought process: Normal thought process present Thought content: Normal thought content present Insight: Fair insight present (Psych) Judgement: Fair judgement present (Psych) Assessment & Plan Assessment & Plan (1) Alcohol use disorder: Code(s): F10.90 - Alcohol use, unspecified, uncomplicated Plan: * discussed starting medications --provided patient with medication education sheet (she had already received it while inpatient recently) * Will start Campral as Naltrexone is out of stock in her pharmacy and several others * risk reduction discussion * CC referral * follow up two weeks Medications: New acamprosate 666 mg (2 x 333 mg) PO TID 180 tabs 0RF Coding Level of Care Code New Pt Level 4 (41842) Diagnoses Alcohol use disorder F10.90
[2023-05-13 13:37] VITALS: BP 106/70; PULSE 103; O2SAT 98
== END 2023-05-13 14:44 | disposition home or self-care (01) ==
PROVIDERS: Visit Provider Nurse Practitioner Psychiatric/Mental Health
DX: F10.90 Alcohol use, unspecified, uncomplicated (principal)
CPT/HCPCS: 99214

== ENCOUNTER → 2023-05-13 13:30 | Outpatient (BNVA) | payer OTHER, SELFPAY | PROVIDERS: Visit Provider Nurse Practitioner Psychiatric/Mental Health | DX: F10.20 Alcohol dependence, uncomplicated (principal) | CPT/HCPCS: 99212 ==

== ENCOUNTER 2023-07-26 14:03 | Inpatient (IN) | payer OTHER, SELFPAY ==
[2023-07-26 14:05] VITALS: BP 141/85; PULSE 133; RESP 20; TEMP 35.8; O2SAT 97; BMI 21.3
--- NOTE | 2023-07-26 14:06 | ED.GENADULT ---
HPI - General Adult General Chief complaint: Nausea/Vomiting/Diarrhea Stated complaint: weak, dehydrated Time Seen by Provider: 07/26/23 17:18 Source: patient Mode of arrival: ambulatory Limitations: no limitations History of Present Illness HPI narrative: Patient is a known alcoholic, has not had a drink in 2 days, now with vomiting. Patient with multiple episodes of alcoholic Ketoacidosis. Now with continued vomiting Onset (ago): day(s) Severity: severe Related Data Previous Rx's Medication Instructions Recorded multivitamin 1 tab PO DAILY #30 tabs 05/02/23 naltrexone 50 mg tablet 50 mg PO DAILY #30 tabs 05/02/23 omeprazole 40 mg capsule,delayed 40 mg PO DAILY@0630 #30 caps 05/02/23 release thiamine mononitrate (vit B1) 100 100 mg PO DAILY #30 tabs 05/02/23 mg tablet vitamin B complex 1 cap PO DAILY #30 caps 05/02/23 acamprosate 333 mg tablet,delayed 666 mg (2 x 333 mg) PO TID #180 05/13/23 release tabs Allergies Allergy/AdvReac Type Severity Reaction Status Date / Time amoxicillin Allergy Hives Verified 05/13/23 13:38 Penicillins Allergy Hives Verified 05/13/23 13:38 Review of Systems Review of Systems: Yes all other systems are reviewed and are negative Neurologic: Denies Sensory deficit (Neuro) PMFSH Past Medical History Medical History Alcohol use disorder Ulcer Social History Social History Household Members: Significant Other Household Members Other:: boyfriend Housing: House Do you presently have visiting nurse or other home services: No Alcohol intake: current Alcohol intake frequency: a few times a week Alcohol type: beer, wine and hard liquor Comment: Pt declines bedalarm. Gait and balance steady Patient Tobacco Use Status: Never used Tobacco Use of substances other than those prescribed or required for medical reasons: Yes Substance Use Type: Marijuana Advance Directives: No Advance Directives Information Provided: No Patient : No service: No Physical Exam ED Vital Signs: Vital Signs - 24 hr 07/26/23 14:05 07/26/23 18:49 07/26/23 20:07 Temperature 96.4 F L 97.8 F Pulse Rate 133 H 125 H 116 H Respiratory Rate 20 18 14 Blood Pressure 141/85 H 119/76 Pulse Oximetry 97 100 100 Oxygen Delivery Method Room Air Room Air Room Air BMI result Body Mass Index 21.3 Const Other: patient appearing pale, no shaking no anxiety Nutritional Appearance: average body habitus Orientation/consciousness: oriented to person and patient oriented x3 Limitations: no limitations HENMT Head: Yes normal to inspection Ears: external ears normal General nose exam: Normal external nose present Mouth: Normal oral and palatal mucosa present and oropharynx normal Throat: Yes posterior oropharynx normal Eyes General: appearance normal, both eyes and all related structures Neck Neck: Yes normal visual inspection Chest Chest palpation & inspection: normal inspection of the chest Resp Auscultation: clear to auscultation bilaterally Cardio Jugular venous distension: no JVD Rate: regular rate Rhythm: regular rhythm Heart sounds: S1 normal heart sound present and S2 normal heart sound present GI Inspection: Yes normal to inspection Palpation (GI): Soft to palpation, nontender and No hepatosplenomegaly present Auscultation: normal bowel sounds General: Yes no CVA tenderness Back/Spine/Pelvis Back: no CVA tenderness Skin General skin exam: no rashes or lesions noted Neuro General: oriented to person and patient oriented x3 Cranial nerves: Yes CN's II-XII intact bilaterally Motor exam (neuro): 5/5 motor strength present throughout Sensory Exam: No Sensory deficit (Neuro) Extrem General: Yes normal to inspection Psych Appearance: grossly normal Course Course Course Narrative: RME- 28-year-old female presents for evaluation of vomiting and weakness. Symptoms started 2 days ago. Plan for labs, viral swabs, test. Patient be medicated with Zofran ODT Reevaluation(s) Reevaluation #1: Just woke patient up she is becoming tremulous and is vomiting again, will give zofran and phenobarbital and admit Time: 21:25 Reevaluation #2: I spent 40 minutes of critical care, with interventions, assessments, speaking to patient, consultants, and family. Time: 21:29 Medications Administered Generic Name Dose Route Start Last Admin Trade Name Freq PRN Reason Stop Dose Admin Dextrose/Sodium Chloride 1,000 mls @ 125 mls/hr 07/26/23 17:45 07/26/23 18:58 D5ns IVCONT 125 mls/hr .Q8H SURYA Administration Discontinued Medications Generic Name Dose Route Start Last Admin Trade Name Freq PRN Reason Stop Dose Admin Sodium Chloride 1,000 mls @ 999 mls/hr 07/26/23 17:45 07/26/23 20:52 Ns IVCONT 07/26/23 19:45 999 mls/hr .Q1H1M SURYA Administration Thiamine HCl 100 mg/ Sodium 101 mls @ 202 mls/hr 07/26/23 18:50 07/26/23 20:06 Chloride IVPUSH 07/26/23 19:19 Infused ONCE ONE Infusion Ondansetron HCl 4 mg 07/26/23 14:06 07/26/23 14:11 Ondansetron Odt 4 Mg Tab.Rapdis TRANSLINGU 07/26/23 14:07 4 mg ONCE ONE Administration Ondansetron HCl 4 mg 07/26/23 17:39 07/26/23 18:49 Ondansetron Hcl 4 Mg/2 Ml Vial IVPUSH 07/26/23 17:40 4 mg ONCE ONE Administration Ondansetron HCl 4 mg 07/26/23 21:23 07/26/23 21:33 Ondansetron Hcl 4 Mg/2 Ml Vial IVPUSH 07/26/23 21:24 4 mg ONCE ONE Administration Phenobarbital Sodium 65 mg 07/26/23 21:25 07/26/23 21:32 Phenobarbital Sodium 65 Mg/Ml Vial IVPUSH 07/26/23 21:26 65 mg ONCE ONE Administration Potassium Chloride 20 meq 07/26/23 18:49 07/26/23 19:29 Potassium Chloride Er 20 Meq Tab.Er.Prt PO 07/26/23 18:50 20 meq ONCE ONE Administration Medical Decision Making Differential Diagnosis Differential Diagnoses: The differential diagnosis associated with the presentation includes (alcoholic ketoacidosis, alcoholic gastritis, withdrawal were all considered) Admission/Observation Consideration of admission/observation: Escalation of care including admission/observation considered (upon arrival patient considered for admission) Consult Healthcare Provider Management of the patient was discussed with: Hospitalist Lab Data MDM Lab Attestation statement: I reviewed the patient's lab results. bicarb of 12 noted pH 7.44, slight renal insufficiency 07/26/23 14:28 07/26/23 14:28 Labs: Lab Results 07/26/23 07/26/23 Range/Units 14:28 17:53 WBC 13.5 H (4.8-10.8) X10*3/uL RBC 4.89 D (4.20-5.50) X10*6/uL Hgb 15.1 D (12.0-16.0) g/dl Hct 43.8 D (37.0-47.0) % MCV 89.6 (80.0-98.0) fL MCH 30.9 (27.0-33.0) pg MCHC 34.5 (31.0-35.0) g/dl RDW 12.4 (11.0-16.0) % Plt Count 348 D (160-400) X10*3/uL MPV 9.0 L (9.4-12.3) fL Immature Gran % (Auto) 0.4 (0.0-0.4) % Neut % (Auto) 82.9 H (45-73) % Lymph % (Auto) 7.0 L (20-40) % Stewart % (Auto) 9.4 (2-11) % Eos % (Auto) 0.0 (0-4) % Baso % (Auto) 0.3 (0-2) % Lymph # (Auto) 1.0 L (1.2-4.9) X10*3/uL Stewart # (Auto) 1.3 H (0.1-1.2) X10*3/uL Eos # (Auto) 0.0 (0.0-0.4) X10*3/uL Baso # (Auto) 0.0 (0.0-0.2) X10*3/uL Abs Immat Gran (auto) 0.06 H (0.00-0.03) X10*3/uL Absolute Neuts (auto) 11.2 H (2.0-8.3) x10*3/uL Absolute Nucleated RBC 0.000 (0.0-0.012) X10*3/uL Nucleated RBC % (auto) 0.0 (0.0-0.2) /100WBC VBG pH 7.44 H (7.32-7.43) VBG pCO2 24 mmHg VBG pO2 45 mmHg VBG HCO3 16 L (22-26) mmol/L VBG O2 Saturation 71.0 % VBG Base Excess -4.9 mmol/L Sodium 135 (135-145) mmol/L Potassium 3.1 L (3.3-5.1) mmol/L Chloride 89 L (96-108) mmol/L Carbon Dioxide 12 L (22-29) mmol/L Anion Gap 37 H (12-20) BUN 21 H (9-16) mg/dL Creatinine 1.38 (0.5-1.4) mg/dL Estim Creat Clear Calc 50.2 Estimated GFR 46 Random Glucose 206 H (60-115) mg/dL Calcium 10.4 H D (8.4-10.2) mg/dL Total Bilirubin 1.4 H (0.0-1.0) mg/dL AST 35 H (5-31) U/L ALT 38 H (0-31) U/L Alkaline Phosphatase 68 (39-117) U/L Total Protein 9.7 H (6.5-8.0) g/dL Albumin 5.9 H (3.5-5.0) g/dL Lipase 70 (8-78) U/L Beta HCG, Quant < 2 mIU/mL Ethyl Alcohol < 10 mg/dL Influenza Type A (PCR) NEGATIVE (Negative) Influenza Type B (PCR) NEGATIVE (Negative) RSV RNA Qual (PCR) NEGATIVE (Negative) SARS-CoV-2 RNA (RT-PCR) NEGATIVE (Negative) External Record Review External record reviewed: Outpatient record and Prior outpatient labs Tests considered The following testing was considered but not selected: CT of abdomen considered but abdomen is soft non focal Chronic Conditions Patient?s care impacted by: Other (alcoholism) Social Determinants Patient?s care significantly limited by Social Determinants of Health including: Alcoholism and drug addiction in family Discharge Plan Discharge Clinical Impression: Alcohol dependence with alcohol-induced disorder, Alcoholic gastritis, Alcoholic ketoacidosis Patient Disposition: Admitted As Inpatient
[2023-07-26] MEDS: Ondansetron ODT 4 MG TAB.RAPDIS TRANSLINGU (14:11)
[2023-07-26 14:34] LABS: MANUAL DIFF FLAG NO
[2023-07-26 14:36] LABS: Basophils Percent Auto 0.3 % (0-2); Hematocrit 43.8 % (37.0-47.0); Hemoglobin 15.1 g/dl (12.0-16.0); Imm Gran Abs Auto 0.06 X10*3/uL (0.00-0.03); Imm Gran Pct Auto 0.4 % (0.0-0.4); Mean Corpuscular HGB Conc 34.5 g/dl (31.0-35.0); Mean Corpuscular Hemoglobin 30.9 pg (27.0-33.0); Mean Corpuscular Volume 89.6 fL (80.0-98.0); Monocytes Absolute Auto 1.3 X10*3/uL (0.1-1.2); Monocytes Percent Auto 9.4 % (2-11); Neutrophils Absolute Auto 11.2 x10*3/uL (2.0-8.3); Neutrophils Percent Auto 82.9 % (45-73); Platelet Count 348 X10*3/uL (160-400); Red Blood Count 4.89 X10*6/uL (4.20-5.50); Red Cell Distribution Width 12.4 % (11.0-16.0); White Blood Count 13.5 X10*3/uL (4.8-10.8)
[2023-07-26 15:05] LABS: Alanine Aminotransferase 38 U/L (0-31); Albumin Level 5.9 g/dL (3.5-5.0); Alkaline Phosphatase 68 U/L (39-117); Anion Gap 37 (12-20); Aspartate Amino Transferase 35 U/L (5-31); Bilirubin Total 1.4 mg/dL (0.0-1.0); Blood Urea Nitrogen 21 mg/dL (9-16); Calcium 10.4 mg/dL (8.4-10.2); Carbon Dioxide 12 mmol/L (22-29); Chloride 89 mmol/L (96-108); Creatinine Clr Calc Pharmacy 50.2; Estimated Glomerular Filt Rate 46; Glucose Random 206 mg/dL (60-115); HCG Quantitative < 2 mIU/mL; Lipase 70 U/L (8-78); Potassium 3.1 mmol/L (3.3-5.1); Sodium 135 mmol/L (135-145); Total Protein 9.7 g/dL (6.5-8.0)
[2023-07-26 15:30] LABS: Influenza A PCR NEGATIVE (Negative); Influenza B PCR NEGATIVE (Negative); Resp Syncy Virus RNA Qual PCR NEGATIVE (Negative); SARS COV2 PCR INHOUSE NEGATIVE (Negative)
[2023-07-26 17:35] LABS: Ethanol < 10 mg/dL
[2023-07-26 17:58] LABS: VBG Base Excess -4.9 mmol/L; VBG HCO3 16 mmol/L (22-26); VBG pCO2 24 mmHg; VBG pH 7.44 (7.32-7.43); VBG pO2 45 mmHg
[2023-07-26 17:58] LABS: Venous Blood Gas Refer to POC result
[2023-07-26 18:49] VITALS: BP 119/76; PULSE 125; RESP 18; TEMP 36.6; O2SAT 100
[2023-07-26] MEDS: ondansetron HCL 4 MG/2 ML VIAL IVPUSH ×2 (18:49→21:33)
[2023-07-26] MEDS: 0.9 % Sodium Chloride 1,000 ML 999 ML IVCONT ×2 (18:58→20:52)
[2023-07-26] MEDS: Dextrose 5 % and 0.9 % NaCl 1,000 ML 125 ML IVCONT ×2 (18:58→23:03)
[2023-07-26] MEDS: Thiamine HCL 100 MG in 0.9 % Sodium Chloride 100 ML 202 MG IVPUSH (19:29)
[2023-07-26] MEDS: Potassium Chloride ER 20 MEQ TAB.ER.PRT PO (19:29)
[2023-07-26 20:07] VITALS: PULSE 116; RESP 14; O2SAT 100
[2023-07-26] MEDS: PHENobarbitaL sodium 65 MG/ML VIAL IVPUSH (21:32)
--- NOTE | 2023-07-26 21:41 | PM.IMHP ---
History of Present Illness Date of Service: 07/26/23 Chief Complaint: Vomiting This is a 28-year-old female with pertinent history of alcohol use disorder with hospitalizations due to alcohol withdrawal and ketoacidosis who presents to the emergency department for evaluation of nausea and vomiting. Patient states her last drink was 2 days prior to presentation. She usually drinks vodka. Patient states that over the last 2 days she has been having nausea and multiple episodes of nonbloody emesis. Also has been having symptoms of gastroesophageal reflux disease. States she does not take her home medications but is supposed to be on an acid suppressant and multivitamins. Does not take naltrexone. She also complains of tremors and anxiety. No history of alcohol withdrawal seizures. No fever, chills, chest discomfort, palpitations, shortness of breath, abdominal pain, changes in urinary or bowel habits. In the emergency department, patient was found to have low potassium, low magnesium, low bicarb and was initiated on phenobarb protocol Review of Systems Constitutional: Constitutional: Reports lethargy, Reports malaise and Reports poor appetite Cardiovascular: Cardiovascular: Reports no additional cardiovascular complaints Respiratory: Respiratory: Reports no additional respiratory complaints Gastrointestinal: Gastrointestinal: Reports belching, Reports dyspepsia, Reports heartburn, Reports nausea and Reports vomiting Genitourinary: Genitourinary: Reports no additional female genitourinary complaints [facility] Medical History Alcohol use disorder Ulcer Pertinent family history: No family history of early CAD Social History Household Members: Significant Other Household Members Other:: boyfriend Housing: House Do you presently have visiting nurse or other home services: No Alcohol intake: current Alcohol intake frequency: a few times a week Alcohol type: beer, wine and hard liquor Comment: Pt declines bedalarm. Gait and balance steady Patient Tobacco Use Status: Never used Tobacco Use of substances other than those prescribed or required for medical reasons: Yes Substance Use Type: Marijuana Advance Directives: No Advance Directives Information Provided: No Patient : No service: No Meds Allergies Allergy/AdvReac Type Severity Reaction Status Date / Time amoxicillin Allergy Hives Verified 05/13/23 13:38 Penicillins Allergy Hives Verified 05/13/23 13:38 Active Medications: Current Medications Dextrose/Sodium Chloride (D5ns) 1,000 mls @ 125 mls/hr IVCONT .Q8H SURYA Last Admin: 07/26/23 18:58 Dose: 125 mls/hr Pharmacy Consult (Consult Rx Etoh Phenob Im/Po) 1 each MISCELLANE ONCE PRN; Protocol PRN Reason: Consult order Home Medications Medication Instructions Recorded Confirmed Last Taken Type ascorbic acid (vitamin C) 500 mg 500 mg PO DAILY 07/26/23 07/26/23 Unknown History tablet omeprazole 40 mg capsule,delayed 40 mg PO DAILY@0630 PRN Acid Reflux 07/26/23 07/26/23 Unknown History release Physical Exam Vital Signs and Narrative: Vital Signs: Last Vital Signs Temp 97.8 F 07/26/23 18:49 Pulse 116 H 07/26/23 20:07 Resp 14 07/26/23 20:07 BP 119/76 07/26/23 18:49 Pulse Ox 100 07/26/23 20:07 O2 Del Method Room Air 07/26/23 20:07 BMI result Body Mass Index 21.3 Young female lying in bed in no distress Neck supple, no JVD Tachycardic with regular rhythm, S1-S2 heard Regular breath sounds bilaterally, no wheezing or crackles appreciated Abdomen soft nontender, no guarding, no rigidity Patient is awake, alert and oriented to self, place, time and person ; no focal motor deficit Psych: Anxious No pedal edema Results Labs 07/26/23 14:28 07/26/23 22:03 Labs: Laboratory Results - last 24 hr 07/26/23 07/26/23 14:28 17:53 MCV 89.6 MCH 30.9 MCHC 34.5 RDW 12.4 Plt Count 348 D MPV 9.0 L Immature Gran % (Auto) 0.4 Neut % (Auto) 82.9 H Lymph % (Auto) 7.0 L [place] % (Auto) 9.4 Eos % (Auto) 0.0 Baso % (Auto) 0.3 Lymph # (Auto) 1.0 L [place] # (Auto) 1.3 H Eos # (Auto) 0.0 Baso # (Auto) 0.0 Abs Immat Gran (auto) 0.06 H Absolute Neuts (auto) 11.2 H Absolute Nucleated RBC 0.000 Nucleated RBC % (auto) 0.0 VBG pH 7.44 H VBG pCO2 24 VBG pO2 45 VBG HCO3 16 L VBG O2 Saturation 71.0 VBG Base Excess -4.9 Anion Gap 37 H Estim Creat Clear Calc 50.2 Estimated GFR 46 Random Glucose 206 H Calcium 10.4 H D Total Bilirubin 1.4 H AST 35 H ALT 38 H Alkaline Phosphatase 68 Total Protein 9.7 H Albumin 5.9 H Lipase 70 Beta HCG, Quant < 2 Ethyl Alcohol < 10 Influenza Type A (PCR) NEGATIVE Influenza Type B (PCR) NEGATIVE RSV RNA Qual (PCR) NEGATIVE SARS-CoV-2 RNA (RT-PCR) NEGATIVE Assessment and Plan (1) Alcoholic ketoacidosis: Status: Acute (2) Alcohol use disorder: Status: Acute (3) Alcoholic gastritis without bleeding: Status: Acute (4) Alcohol dependence with alcohol-induced disorder: Status: Acute Plan This is a 28-year-old female with pertinent history of alcohol use disorder with hospitalizations due to alcohol withdrawal and ketoacidosis who presents to the emergency department for evaluation of nausea and vomiting. #. Alcohol withdrawal: Will admit patient and initiate phenobarb protocol. Monitor CIWA. Initiating thiamine. Consulted Addiction Team, appreciate assistance. Resuscitating with IV crystalloids #. Alcoholic ketoacidosis: Continue isotonic fluid resuscitation and monitor serum bicarb #. Alcoholic gastritis: Symptom control with antiemetics p.r.n. and initiating PPI #. Elevated transaminases in the setting of alcohol use. Counseled regarding cessation #. Hypokalemia and hypomagnesemia due to alcohol use: Repleted #. Reactive leukocytosis DVT prophylaxis: Lovenox Full code Admit as inpatient and will require two night minimum hospital stay for treatment of alcohol withdrawal, monitoring of electrolytes (as above), which is not possible in a lesser acute setting. Quality Stroke Does the patient have a stroke diagnosis?: No VTE Prior VTE?: No VTE Risk Level:: Medical - moderate - high VTE Device Contraindication: Treatment Not Indicated VTE Drug Contraindication: N/A - Med Ordered
--- NOTE | 2023-07-26 21:43 | PHA.MEDREC ---
Pharmacy Consult ? Medication Reconciliation Pharmacy has completed the medication reconciliation. Reports she is suppose to take acamprosate but she has not in about two months so i removed from home list. Aileen Godfrey, KyleD
[2023-07-26 21:50] LABS: Appearance Urine Clear; Color Urine Yellow; Glucose Urine UA Negative (Negative); Leukocyte Esterase Urine Negative (Negative); Nitrite Urine Negative (Negative); PH 5.5 (5.0-9.0); Specific Gravity - Urine 1.025 (1.005-1.025); UMIC TRIGGER UACC YES; Urine Blood Trace (Negative); Urine Ketones >=160 mg/dL (Negative); Urine Protein >=1000 (4+) mg/dL (Neg-Trace)
[2023-07-26 21:58] LABS: Amphetamine Screen Urine Not Detected (Not Detect); Barbiturates, Urine Not Detected (Not Detect); Benzodiazepines Screen Urine Not Detected (Not Detect); Cannabinoid Screen Urine POSITIVE (Not Detect); Cocaine Screen Urine Not Detected (Not Detect); Fentanyl, urine Not Detected (Not Detect); Opiate Screen Urine Not Detected (Not Detect); Phencyclidine Screen Urine Not Detected (Not Detect)
[2023-07-26 22:11] LABS: Bacteria Urine None Seen (None Seen); Hyaline Casts Urine >20 /LPF (0-2); RBC Urine 0-2 /HPF (0-2); Squamous Epithelial Cell Urine 0-2 /HPF (0-2); WBC Urine 0-5 /HPF (0-5)
[2023-07-26 22:25] LABS: Magnesium 1.5 mg/dL (1.6-2.6); Phosphorus 1.5 mg/dL (2.7-4.5)
[2023-07-26 22:25] LABS: Beta-Hydroxybutyrate 4.77 mmol/L (0.02-0.27)
[2023-07-26] MEDS: Pantoprazole Sodium 40 MG/10 ML VIAL IVPUSH (22:26)
[2023-07-26] MEDS: Enoxaparin Sodium 40 MG/0.4 ML SYRINGE SUBCUT (22:26)
[2023-07-26 22:27] LABS: Anion Gap 25 (12-20); Blood Urea Nitrogen 18 mg/dL (9-16); Calcium 8.5 mg/dL (8.4-10.2); Carbon Dioxide 17 mmol/L (22-29); Chloride 96 mmol/L (96-108); Creatinine Clr Calc Pharmacy 70.6; Estimated Glomerular Filt Rate > 60; Glucose Random 129 mg/dL (60-115); Potassium 3.1 mmol/L (3.3-5.1); Sodium 135 mmol/L (135-145)
[2023-07-26 22:31] VITALS: PULSE 105; RESP 18; O2SAT 97
--- NOTE | 2023-07-26 22:33 | PC.NURSE ---
pt ambulated to and from bathroom with a steady gait. pt actively vomiting upon return to room. medicated per mar with zofran, phenobarb, and protonix. pt is resting comfortably on stretcher, on monitor car operator, provided with warm blankets. call pepper within reach. plan of care ongoing
[2023-07-26] MEDS: Magnesium Sulfate/H2O 2 GM/50 ML PIGGYBACK IV (23:01)
[2023-07-26] MEDS: Prochlorperazine Edisylate 10 MG/2 ML VIAL 5 MG IVPUSH (23:01)
[2023-07-26] MEDS: Potassium Chloride Packet 20 MEQ PACKET 40 MEQ PO (23:02)
[2023-07-26] MEDS: PHENobarbitaL sodium 130 MG/ML IM ONCE 208 MG IM (23:02)
[2023-07-27 00:57] VITALS: BP 132/83; PULSE 123; RESP 18; TEMP 36.5; O2SAT 98
[2023-07-27 02:38] VITALS: BP 127/73; PULSE 107; RESP 16
[2023-07-27] MEDS: PHENobarbitaL sodium 130 MG/ML VIAL IM Q3Hx2 156 MG IM ×2 (02:45→06:14)
[2023-07-27 05:56] VITALS: BP 141/80; PULSE 101; RESP 18
--- NOTE | 2023-07-27 05:56 | PC.NURSE ---
patient refuses bed alarm
[2023-07-27] MEDS: Omeprazole 40 MG CAPSULE.DR PO (06:15)
[2023-07-27 06:46] LABS: MANUAL DIFF FLAG NO
[2023-07-27 06:51] LABS: Basophils Percent Auto 0.3 % (0-2); Eosinophils Percent Auto 0.1 % (0-4); Hematocrit 34.8 % (37.0-47.0); Imm Gran Abs Auto 0.08 X10*3/uL (0.00-0.03); Imm Gran Pct Auto 0.5 % (0.0-0.4); Lymphocytes Absolute Auto 1.4 X10*3/uL (1.2-4.9); Lymphocytes Percent Auto 8.8 % (20-40); Mean Corpuscular HGB Conc 34.5 g/dl (31.0-35.0); Mean Corpuscular Hemoglobin 31.2 pg (27.0-33.0); Mean Corpuscular Volume 90.4 fL (80.0-98.0); Mean Platelet Volume 9.5 fL (9.4-12.3); Monocytes Absolute Auto 1.5 X10*3/uL (0.1-1.2); Monocytes Percent Auto 9.5 % (2-11); Neutrophils Absolute Auto 12.7 x10*3/uL (2.0-8.3); Neutrophils Percent Auto 80.8 % (45-73); Platelet Count 252 X10*3/uL (160-400); Red Blood Count 3.85 X10*6/uL (4.20-5.50); Red Cell Distribution Width 12.4 % (11.0-16.0); White Blood Count 15.7 X10*3/uL (4.8-10.8)
[2023-07-27 06:58] VITALS: BP 128/59; PULSE 101; RESP 16; TEMP 36.6; O2SAT 97
[2023-07-27 07:26] LABS: Blood Urea Nitrogen 9 mg/dL (9-16); Calcium 8.1 mg/dL (8.4-10.2); Creatinine Clr Calc Pharmacy 92.3; Estimated Glomerular Filt Rate > 60; Glucose Random 106 mg/dL (60-115); Magnesium 2.4 mg/dL (1.6-2.6)
[2023-07-27 07:31] LABS: Anion Gap 17 (12-20); Carbon Dioxide 21 mmol/L (22-29); Chloride 100 mmol/L (96-108); Potassium 2.9 mmol/L (3.3-5.1); Sodium 135 mmol/L (135-145)
[2023-07-27] MEDS: 0.9 % Sodium Chloride Flush 3 ML SYRINGE IVFLUSH (08:42)
[2023-07-27] MEDS: ondansetron HCL 4 MG/2 ML VIAL IVPUSH (08:42)
--- NOTE | 2023-07-27 09:45 | MHC.CM.PN ---
pt lives with s/o had no previous servcies has own ride home home no servies
[2023-07-27] MEDS: Thiamine HCL 100 MG TABLET PO (10:13)
[2023-07-27] MEDS: Ascorbic Acid 500 MG TABLET PO (10:13)
[2023-07-27] MEDS: Multivitamin TABLET 1 TAB PO (10:13)
[2023-07-27] MEDS: Potassium Chloride ER 20 MEQ TAB.ER.PRT 40 MEQ PO ×2 (10:14→16:30)
[2023-07-27] MEDS: PHENobarbitaL 15 MG TABLET 45 MG PO ×2 (10:14→21:51)
--- NOTE | 2023-07-27 10:45 | P.PNIM_ITS ---
Subjective Subjective Date of Service: 07/27/23 Interval History: f/u on gastritis, alcohol withdrawal and low potassium and magnesium Physical Exam 2 Vital Signs: Vital Signs: Last Vital Signs Temp 98 F 07/27/23 06:58 Pulse 101 H 07/27/23 06:58 Resp 16 07/27/23 06:58 BP 128/59 L 07/27/23 06:58 Pulse Ox 97 07/27/23 06:58 O2 Del Method Room Air 07/27/23 06:58 BMI result Body Mass Index 21.3 General: AO X 3, no acute distress Resp: CTA bilateral CVS: S1,S2,RRR GI: +BS, NT, no distention Skin: No rash Neuro: motor grossly intact Psych: appropriate affect Objective Data Active Medications Acetaminophen (Acetaminophen 325 Mg Tablet) 650 mg PO Q6H PRN PRN Reason: Pain, Mild (Pain Scale 1-3) Ascorbic Acid (Ascorbic Acid 500 Mg Tablet) 500 mg PO DAILY [facility] Last Admin: 07/27/23 10:13 Dose: 500 mg Documented By: ORTEGA Enoxaparin Sodium (Enoxaparin Sodium 40 Mg/0.4 Ml Syringe) 40 mg SUBCUT Q24H [facility] Last Admin: 07/26/23 22:26 Dose: 40 mg Documented By: ATTILA Melatonin (Melatonin 3 Mg Tablet) 6 mg PO BEDTIME PRN PRN Reason: Insomnia Multivitamins/Vitamin C (Multivitamin Tablet) 1 tab PO DAILY [facility] Last Admin: 07/27/23 10:13 Dose: 1 tab Documented By: ORTEGA Omeprazole (Omeprazole 40 Mg Capsule.Dr) 40 mg PO DAILY@0630 [facility] Last Admin: 07/27/23 06:15 Dose: 40 mg Documented By: LUPE Ondansetron HCl (Ondansetron Hcl 4 Mg/2 Ml Vial) 4 mg IVPUSH Q8H PRN PRN Reason: Nausea and Vomiting Last Admin: 07/27/23 08:42 Dose: 4 mg Documented By: ORTEGA Pharmacy Consult (Consult Rx Etoh Phenob Im/Po) 1 each MISCELLANE ONCE PRN; Protocol PRN Reason: Consult order Phenobarbital (Phenobarbital 15 Mg Tablet) 45 mg PO BID [facility]; Protocol Stop: 07/28/23 21:01 Last Admin: 07/27/23 10:14 Dose: 45 mg Documented By: ORTEGA Phenobarbital (Phenobarbital 15 Mg Tablet) 15 mg PO BID [facility]; Protocol Stop: 07/30/23 21:01 Phenobarbital (Phenobarbital 15 Mg Tablet) 15 mg PO DAILY [facility]; Protocol Stop: 08/01/23 09:01 Potassium Chloride (Potassium Chloride Er 20 Meq Tab.Er.Prt) 40 meq PO Q8H SURYA Stop: 07/27/23 16:01 Last Admin: 07/27/23 10:14 Dose: 40 meq Documented By: ORTEGA Sodium Chloride (0.9 % Sodium Chloride Flush 3 Ml Syringe) 3 ml IVFLUSH QSHIFT [facility] Last Admin: 07/27/23 08:42 Dose: 3 ml Documented By: ORTEGA Thiamine HCl (Thiamine Hcl 100 Mg Tablet) 100 mg PO DAILY [facility] Last Admin: 07/27/23 10:13 Dose: 100 mg Documented By: ORTEGA Labs 07/27/23 05:42 07/27/23 05:42 Labs: Laboratory Results - last 24 hr 07/26/23 07/26/23 07/26/23 14:28 17:53 21:44 MCV 89.6 MCH 30.9 MCHC 34.5 RDW 12.4 Plt Count 348 D MPV 9.0 L Immature Gran % (Auto) 0.4 Neut % (Auto) 82.9 H Lymph % (Auto) 7.0 L [place] % (Auto) 9.4 Eos % (Auto) 0.0 Baso % (Auto) 0.3 Lymph # (Auto) 1.0 L [place] # (Auto) 1.3 H Eos # (Auto) 0.0 Baso # (Auto) 0.0 Abs Immat Gran (auto) 0.06 H Absolute Neuts (auto) 11.2 H Absolute Nucleated RBC 0.000 Nucleated RBC % (auto) 0.0 VBG pH 7.44 H VBG pCO2 24 VBG pO2 45 VBG HCO3 16 L VBG O2 Saturation 71.0 VBG Base Excess -4.9 Anion Gap 37 H Estim Creat Clear Calc 50.2 Estimated GFR 46 Random Glucose 206 H Calcium 10.4 H D Phosphorus Magnesium Total Bilirubin 1.4 H AST 35 H ALT 38 H Alkaline Phosphatase 68 Total Protein 9.7 H Albumin 5.9 H Lipase 70 Beta-Hydroxybutyrate Beta HCG, Quant < 2 Urine Color Yellow Urine Appearance Clear Urine pH 5.5 Ur Specific [place] 1.025 Urine Protein >=1000 (4+) H Urine Glucose (UA) Negative Urine Ketones >=160 Urine Blood Trace H Urine Nitrite Negative Ur Leukocyte Esterase Negative Urine RBC 0-2 Urine WBC 0-5 Ur Squamous Epith Cells 0-2 Urine Bacteria None Seen Hyaline Casts >20 Urine Opiates Screen Not Detected Urine Fentanyl Screen Not Detected Ur Barbiturates Screen Not Detected Ur Phencyclidine Scrn Not Detected Ur Amphetamines Screen Not Detected U Benzodiazepines Scrn Not Detected Urine Cocaine Screen Not Detected U Marijuana (THC) Screen POSITIVE H Ethyl Alcohol < 10 Influenza Type A (PCR) NEGATIVE Influenza Type B (PCR) NEGATIVE RSV RNA Qual (PCR) NEGATIVE SARS-CoV-2 RNA (RT-PCR) NEGATIVE 07/26/23 07/26/23 07/27/23 22:03 22:04 05:42 MCV 90.4 MCH 31.2 MCHC 34.5 RDW 12.4 Plt Count 252 D MPV 9.5 Immature Gran % (Auto) 0.5 H Neut % (Auto) 80.8 H Lymph % (Auto) 8.8 L [place] % (Auto) 9.5 Eos % (Auto) 0.1 Baso % (Auto) 0.3 Lymph # (Auto) 1.4 [place] # (Auto) 1.5 H Eos # (Auto) 0.0 Baso # (Auto) 0.0 Abs Immat Gran (auto) 0.08 H Absolute Neuts (auto) 12.7 H Absolute Nucleated RBC 0.000 Nucleated RBC % (auto) 0.0 VBG pH VBG pCO2 VBG pO2 VBG HCO3 VBG O2 Saturation VBG Base Excess Anion Gap 25 H 17 Estim Creat Clear Calc 70.6 92.3 Estimated GFR > 60 > 60 Random Glucose 129 H 106 Calcium 8.5 D 8.1 L Phosphorus 1.5 L Magnesium 1.5 L 2.4 Total Bilirubin AST ALT Alkaline Phosphatase Total Protein Albumin Lipase Beta-Hydroxybutyrate 4.77 H Beta HCG, Quant Urine Color Urine Appearance Urine pH Ur Specific [place] Urine Protein Urine Glucose (UA) Urine Ketones Urine Blood Urine Nitrite Ur Leukocyte Esterase Urine RBC Urine WBC Ur Squamous Epith Cells Urine Bacteria Hyaline Casts Urine Opiates Screen Urine Fentanyl Screen Ur Barbiturates Screen Ur Phencyclidine Scrn Ur Amphetamines Screen U Benzodiazepines Scrn Urine Cocaine Screen U Marijuana (THC) Screen Ethyl Alcohol Influenza Type A (PCR) Influenza Type B (PCR) RSV RNA Qual (PCR) SARS-CoV-2 RNA (RT-PCR) Assessment and Plan (1) Alcoholic ketoacidosis: Status: Acute (2) Alcohol use disorder: Status: Acute (3) Alcoholic hepatitis without ascites: Status: Acute Plan 28-year-old female with pertinent history of alcohol use disorder with hospitalizations due to alcohol withdrawal and ketoacidosis who presents to the emergency department for evaluation of nausea and vomiting. #. Alcohol withdrawal, presently without symproms of withdrawal, continue phenobarb, we talk about the need for cessation, addiction med consult #. Hypokalemia--oral replacement, check mag #. Alcoholic ketoacidosis: nearly resolved with IVF #. Alcoholic gastritis: improved, continue ppi #. Elevated transaminases in the setting of alcohol use. Counseled regarding cessation #.hypomagnesemia corrected #. Reactive leukocytosis--monitor DVT prophylaxis: Lovenox Full code need for inpt: alcohol withdrawal, alcohol withdrawal Quality Stroke Does the patient have a stroke diagnosis?: No VTE Prior VTE?: No VTE Risk Level:: Medical - moderate - high VTE Device Contraindication: Treatment Not Indicated VTE Drug Contraindication: N/A - Med Ordered
--- NOTE | 2023-07-27 12:47 | MHC.RECOVRN ---
Met with pt in 372 after consult placed to Addiction Medicine for AUD. Pt had presented to the ED reporting vomiting since Saturday and was actively vomiting in triage. Upon evaluation, pt admitted for AUD, alcoholic ketoacidosis, and gastritis. Pt laying in bed, lights off, eyes closed, wakes to voice, difficult to engage in conversation. Pt reports she has decreased amount of alcohol use, currently drinking 4 vodka drinks sometimes not every day. Pt reports continued nausea and feeling unwell. T/w to return at a later time. Denies questions or concerns for t/w.
[2023-07-27 15:03] VITALS: BP 120/78; PULSE 111; RESP 18; TEMP 36.8; O2SAT 98
[2023-07-27 20:00] VITALS: BP 130/78; PULSE 100; RESP 18; TEMP 36.9; O2SAT 96
[2023-07-27] MEDS: Enoxaparin Sodium 40 MG/0.4 ML SYRINGE SUBCUT (21:52)
[2023-07-27] MEDS: Melatonin 3 MG TABLET 6 MG PO (21:56)
[2023-07-28 00:47] VITALS: BP 131/83; PULSE 103; RESP 18; TEMP 36.3; O2SAT 100
[2023-07-28] MEDS: Omeprazole 40 MG CAPSULE.DR PO (06:15)
[2023-07-28 06:39] VITALS: BP 126/73; PULSE 98; RESP 16; TEMP 36.1; O2SAT 98
[2023-07-28 06:52] LABS: Anion Gap 12 (12-20); Blood Urea Nitrogen 5 mg/dL (9-16); Calcium 8.9 mg/dL (8.4-10.2); Carbon Dioxide 25 mmol/L (22-29); Chloride 100 mmol/L (96-108); Creatinine Clr Calc Pharmacy 106.6; Estimated Glomerular Filt Rate > 60; Glucose Random 101 mg/dL (60-115); Potassium 3.2 mmol/L (3.3-5.1); Sodium 134 mmol/L (135-145)
[2023-07-28] MEDS: Ascorbic Acid 500 MG TABLET PO (08:29)
[2023-07-28] MEDS: Multivitamin TABLET 1 TAB PO (08:29)
[2023-07-28] MEDS: PHENobarbitaL 15 MG TABLET 45 MG PO (08:29)
[2023-07-28] MEDS: Thiamine HCL 100 MG TABLET PO (08:29)
[2023-07-28] MEDS: Potassium Chloride ER 20 MEQ TAB.ER.PRT 40 MEQ PO (09:21)
--- NOTE | 2023-07-28 10:49 | PM.DS ---
DS: Providers Provider Date of Service: 07/28/23 Date of admission: 07/26/23 21:36 Primary care physician: Unknown Physician Consults: 07/26/23 21:36 Addiction Medicine Routine Consulting Provider: Addiction Covering Reason for consultation: alcohol use disorder DS: Diagnosis Discharge Diagnosis (1) Alcoholic ketoacidosis: Status: Acute (2) Alcohol use disorder: Status: Acute (3) Alcoholic hepatitis without ascites: Status: Acute DS: Summary Hospital Course Hospital Course: Chief Complaint: Vomiting This is a 28-year-old female with pertinent history of alcohol use disorder with hospitalizations due to alcohol withdrawal and ketoacidosis who presents to the emergency department for evaluation of nausea and vomiting. Patient states her last drink was 2 days prior to presentation. She usually drinks vodka. Patient states that over the last 2 days she has been having nausea and multiple episodes of nonbloody emesis. Also has been having symptoms of gastroesophageal reflux disease. States she does not take her home medications but is supposed to be on an acid suppressant and multivitamins. Does not take naltrexone. She also complains of tremors and anxiety. No history of alcohol withdrawal seizures. No fever, chills, chest discomfort, palpitations, shortness of breath, abdominal pain, changes in urinary or bowel habits. In the emergency department, patient was found to have low potassium, low magnesium, low bicarb and was initiated on phenobarb protocol Hospital course: Patient presented with nausea and vomiting in the setting of heavy alcohol use, she was found to have acute alcoholic gastritis, alcoholic ketoacidosis and Ativan for alcohol withdrawal. She was admitted for further management it is also of note that her potassium level was low and was replaced. For alcohol withdrawal prevention, she was treated with phenobarbital and has not exhibited any signs of active withdrawal. She was evaluated by the care team and given resources to help stop alcohol. For alcoholic ketoacidosis was treated with IV fluid and has resolved. Alcoholic gastritis was treated with IV PPI, she is doing better and is tolerating diet. Time Attestation Discharge coordination time: Greater than 30 minutes Quality: Safe Use of Opioids Does Pt have an Active Cancer Diagnosis on the Problem List?: No Quality: Stroke Does the patient have a stroke diagnosis?: No Physical Exam Vital Signs: Vital Signs: Last Vital Signs Temp 97 F 07/28/23 06:39 Pulse 98 07/28/23 06:39 Resp 16 07/28/23 06:39 BP 126/73 07/28/23 06:39 Pulse Ox 98 07/28/23 06:39 O2 Del Method Room Air 07/28/23 06:39 BMI result Body Mass Index 21.3 DS: Data Data Completed and Pending Completed studies during hospitalization [Text1]: Procedures Detoxification Services for Substance Abuse Treatment (04/29/23) Insertion of Infusion Device into Upper Vein, Percutaneous Approach (03/21/23) Labs on day of discharge: Laboratory Results - last 24 hr 07/28/23 06:02 Hold Purple Top SEE NOTE Sodium 134 L Potassium 3.2 L Chloride 100 Carbon Dioxide 25 Anion Gap 12 BUN 5 L Creatinine 0.65 Estim Creat Clear Calc 106.6 Estimated GFR > 60 Random Glucose 101 Calcium 8.9 D Discharge Plan Discharge Anticipated Discharge Date/Time: 07/28/23 10:27 Patient Disposition: Home, Self-Care Discharge Diagnosis: Alcoholic gastritis, alcohol use disorder alcohol, alcohol withdrawal Referrals: Physician,Unknown J [Primary Care Provider] - 1 Week Discharge Medications: Continued ascorbic acid (vitamin C) 500 mg Tablet 500 mg PO DAILY omeprazole 40 mg capsule,delayed release(DR/EC) 40 mg PO DAILY@0630 PRN (Reason: Acid Reflux) thiamine mononitrate (vit B1) 100 mg Tablet 100 mg PO DAILY Qty: 30 0RF multivitamin Tablet 1 tab PO DAILY Qty: 30 0RF Discharge Orders: Discharge Order (Routine); Ordered 07/28/23 Ordered By: Juan Bain Diet: Advance to usual diet Activity on Discharge: As tolerated Stand Alone Forms: Patient Portal Discharge page Care Plan Goals: Recovering from alcoholic gastritis, alcoholic ketoacidosis, and alcohol use disorder. Health Concerns: Alcoholic gastritis, alcoholic hepatitis, alcohol withdrawal Plan of Treatment: Continue taking omeprazole for alcoholic gastritis, avoid alcohol, seek the recesses giving to you by our CARE team eat banana a day to help keep your potassium up.. Follow up with your doctor in a week, Assessment: See above
[2023-07-28 11:24] LABS: Magnesium 2.2 mg/dL (1.6-2.6)
[2023-07-28] MEDS: Ondansetron ODT 4 MG TAB.RAPDIS TRANSLINGU (12:02)
--- NOTE | 2023-07-28 13:14 | MHC.CM.PN ---
pt dcd home no servies
--- NOTE | 2023-07-28 13:46 | MHC.RECOVRN ---
Met with pt to follow up and provide support prior to discharge. Pt sitting in bed, awake, alert, guarded but engages in conversation. Pt reports still feeling nauseous. Pt had been seen at the [facility] on 05/13/23 and initiated Campral. Pt reports she didn't take it that much and kept forgetting. Pt unsure if it was helpful at all due to lack of consistently taking medication. Pt reports she had missed her follow up appt and did not reschedule. Pt would like to return to the [facility] and resume Campral. Plan for [facility] to call pt Friday 07/28 to schedule appt. Pt provided with written recovery resources. Denies other questions or concerns for t/w.
== END 2023-07-28 13:28 | disposition home or self-care (01) | DRG 241 ==
LOC: HO.ED 21:33 → HO.EDOVER 22:01 → HO.S3 07-27 00:20
PROVIDERS: Physician Assistant; Admitting Provider Student in an Organized Health Care Education/Training Program; Emergency Provider Emergency Medicine; Visit Provider Internal Medicine
DX: K29.20 Alcoholic gastritis without bleeding (principal); E87.29 Other acidosis; K70.10 Alcoholic hepatitis without ascites; F10.20 Alcohol dependence, uncomplicated; E86.0 Dehydration; E87.6 Hypokalemia; E83.42 Hypomagnesemia; Z20.822 Contact with and (suspected) exposure to COVID-19; Z79.899 Other long term (current) drug therapy
CPT/HCPCS: 0241U; 36415; 80048; 80053; 80307; 81001; 82010; 82803; 83690; 83735; 84100; 84702; 85025; 99285; C9113; J0737; J1650; J2405; J2560; J3411; J3475

== ENCOUNTER → 2023-07-26 21:36 | Outpatient (BNV) | payer OTHER, SELFPAY | PROVIDERS: Admitting Provider Student in an Organized Health Care Education/Training Program; Emergency Provider Emergency Medicine; Visit Provider Student in an Organized Health Care Education/Training Program | DX: E87.29 Other acidosis (principal); F10.90 Alcohol use, unspecified, uncomplicated; K70.10 Alcoholic hepatitis without ascites | CPT/HCPCS: 99223; 99232; 99239 ==

== ENCOUNTER 2023-09-14 14:50 | Inpatient (IN) | payer OTHER, SELFPAY ==
--- NOTE | ~2023-09-14 | CT_ITS ---
EXAMINATION: CT ABDOMEN AND PELVIS WITH CONTRAST CLINICAL INFORMATION: Epigastric pain COMPARISON: 03/21/2023 TECHNIQUE: Multidetector volumetric images were obtained from the superior aspect of the liver through the pubic symphysis following administration 85 mL of Omnipaque 350 intravenous contrast. Sagittal and coronal reformatted images were obtained on the technologist's workstation. Oral contrast: No This CT examination was performed using dose optimization techniques as appropriate, variously including the following: *Automated exposure control *Adjustment of mA and/or kV according to patient size (this includes techniques or standardized protocols for targeted exams where dose is matched to indication/reason for exam; i.e. extremities or head) *Use of iterative reconstruction technique DLP: 416 mGy-cm FINDINGS: LUNG BASES: The visualized lung bases are unremarkable. LIVER, GALLBLADDER, AND BILIARY TREE: The liver is normal in size, shape, and attenuation. No focal hepatic lesion or biliary ductal dilatation is present. The gallbladder is unremarkable with no evidence of radiopaque gallstones, gallbladder wall thickening, or obvious pericholecystic inflammatory changes. PANCREAS: Unremarkable. SPLEEN: Unremarkable. ADRENAL GLANDS: Unremarkable. KIDNEYS AND URETERS: Bilateral nephrograms are symmetric. No hydronephrosis or obstructing calculus identified. BLADDER: Unremarkable. GASTROINTESTINAL TRACT: No evidence of bowel obstruction or significant wall thickening. The appendix is unremarkable. No free fluid or free air is seen. ABDOMINAL WALL: No significant hernia is appreciated. LYMPH NODES: Normal. VASCULAR: Unremarkable. PELVIC VISCERA: Unremarkable. OSSEOUS STRUCTURES: Unremarkable. CT/CT abdomen pelvis w IV con IMPRESSION: No acute findings identified in the abdomen/pelvis.
--- NOTE | 2023-09-14 15:05 | ED.GENADULT ---
HPI - General Adult General Chief complaint: Nausea/Vomiting/Diarrhea Stated complaint: Nauseous Time Seen by Provider: 09/14/23 18:51 Source: patient Mode of arrival: ambulatory Limitations: no limitations History of Present Illness HPI narrative: Patient comes to the emergency room complaining of nausea vomiting and diarrhea starting last night. Patient denies abdominal pain. Patient states that she had 1 drink 3 days ago, but otherwise completely stop drinking since she was discharged from the hospital in July. Patient denies diarrhea. Related Data Home Medications ?Medication ?Instructions ?Recorded ?Confirmed ascorbic acid (vitamin C) 500 mg 500 mg PO DAILY 07/26/23 07/26/23 tablet omeprazole 40 mg capsule,delayed 40 mg PO DAILY@0630 PRN Acid Reflux 07/26/23 07/26/23 release Previous Rx's ?Medication ?Instructions ?Recorded multivitamin 1 tab PO DAILY #30 tabs 05/02/23 thiamine mononitrate (vit B1) 100 100 mg PO DAILY #30 tabs 05/02/23 mg tablet Allergies Allergy/AdvReac Type Severity Reaction Status Date / Time amoxicillin Allergy Hives Verified 09/14/23 15:11 Penicillins Allergy Hives Verified 09/14/23 15:11 Review of Systems Review of Systems: Constitutional : No Weight loss, No Fever, No Chills, No Night Sweats, No Fatigue, No Malaise ENT/Mouth : No Hearing loss, No Ear Pain, No Nasal Congestion, No Sinus Pain, No Hoarseness, No sore throat, No Rhinorrhea, No Swallowing Difficulty Eyes: No Eye Pain, No Swelling, No Redness, No Foreign Body, No Discharge, No Vision Changes Cardiovascular : No Chest Pain, No SOB, No Dyspnea on Exertion, No Orthopnea, No Edema, No Palpitations Respiratory : No Cough, No Sputum, No Wheezing, No Smoke Exposure, No Dyspnea Gastrointestinal : Patient complaining of nausea and vomiting for 24 hours, No Diarrhea, No Constipation, No abdominal Pain, No Hematochezia, No Melena Genitourinary : no irregular bleeding, No Dysuria, No Urinary Frequency, No Hematuria, No Urinary Incontinence, No Urgency, No Flank Pain, No Urinary Flow Changes, No Hesitancy Musculoskeletal : No joint pain, No Myalgias, No Joint Swelling Skin : No Skin Lesions, No rash Neuro : No Weakness, No Numbness, No Paresthesias, No Loss of Consciousness, No Dizziness, No Headache Psych : No Anxiety/Panic, No Depression, No SI/HI/AH/VH, No Social Issues, Heme/Lymph: No Bruising, No Bleeding,No Lymphadenopathy Endocrine : No Polyuria, No Polydipsia, No Temperature Intolerance PMF Past Medical History Medical History Alcohol use disorder Ulcer Social History Social History Household Members: Significant Other Household Members Other:: boyfriend Housing: House Do you presently have visiting nurse or other home services: No Alcohol intake: current Alcohol intake frequency: 3 or more drinks per day Alcohol type: beer, wine and hard liquor Comment: Refused alarms. Patient Tobacco Use Status: Never used Tobacco Smoked in Last 30 Days: Yes Use of substances other than those prescribed or required for medical reasons: Yes Substance Use Type: Marijuana Advance Directives: No Advance Directives Information Provided: No Patient : No service: No Physical Exam ED Vital Signs: Vital Signs - 24 hr 09/14/23 15:07 09/14/23 17:00 09/14/23 19:13 Temperature 96.8 F 97.9 F 98.1 F Pulse Rate 138 H 133 H 129 H Respiratory Rate 18 18 18 Blood Pressure 148/94 H 145/90 H 139/93 H Pulse Oximetry 99 98 98 Oxygen Delivery Method Room Air Room Air Room Air 09/14/23 21:56 09/15/23 00:00 09/15/23 01:43 Temperature 98.0 F 98.3 F 99.3 F Pulse Rate 126 H 127 H 119 H Respiratory Rate 18 20 18 Blood Pressure 136/92 H 140/93 H 151/71 H Pulse Oximetry 97 98 97 Oxygen Delivery Method Room Air Room Air Room Air 09/15/23 02:57 09/15/23 03:56 09/15/23 06:02 Temperature 98.7 F 98.9 F 98.4 F Pulse Rate 109 H 115 H 119 H Respiratory Rate 16 18 16 Blood Pressure 133/88 140/85 H 124/81 Pulse Oximetry 97 98 98 Oxygen Delivery Method Room Air Room Air Room Air BMI result Body Mass Index 21.3 Const Other: Appearance: Alert. Oriented X3. No acute distress. Eyes: Pupils equal, round and reactive to light. ENT: Pharynx normal. Dry oral mucosa Neck: Normal inspection. Neck supple. No lymph nodes noted. No crepitus CVS: Normal heart rate and rhythm. Pulses normal. Normal S1 and S2 Respiratory: No respiratory distress. Breath sounds normal. No Wheezing. No rales Abdomen: Soft and nontender. No rigidity. No distention. Skin: Skin warm and dry. Normal skin color. Normal skin turgor. Extremities: No lower extremity edema. No Lacerations. No Rash Neuro: Oriented X 3. No motor deficit. No sensory deficit. Moving all extremities. No slurred speech. CN 2 through 12 grossly intact Psych: calm, cooperative, normal affect Course Course Course Narrative: This is a rapid medical exam. Deferred additional HPI, ROS, PE to primary provider. 28 yo female with history of alcohol use disorder, h/o alcohol ketoacidosis here with nausea/vomiting, feels dehydrated. Has history of alcohol use disorder, had wine last evening. Has had history of withdrawing but reports she has not been consistently drinking so does not feel she is withdrawing. Will obtain labs, viral testing, UA, ur preg Will give SL zofran VSS Medications Administered Generic Name Dose Route Start Last Admin Trade Name Freq PRN Reason Stop Dose Admin Sodium Bicarbonate 150 meq/ 1,000 mls @ 100 mls/hr 09/14/23 19:15 09/15/23 07:11 Dextrose IV 100 mls/hr .Q10H SURYA Administration Discontinued Medications Generic Name Dose Route Start Last Admin Trade Name Freq PRN Reason Stop Dose Admin Thiamine HCl 100 mg/ Sodium 101 mls @ 202 mls/hr 09/14/23 17:13 09/14/23 19:00 Chloride IV 09/14/23 17:42 Infused ONCE ONE Infusion Dextrose/Sodium Chloride 1,000 mls @ 999 mls/hr 09/14/23 17:13 09/14/23 20:23 D5ns IVCONT 09/14/23 18:13 Infused .Q1H1M STA Infusion Lactated Ringer's 1,000 mls @ 999 mls/hr 09/14/23 22:00 09/15/23 03:22 Lr IV 09/14/23 23:00 Not Given .Q1H1M SURYA Dextrose/Sodium Chloride 1,000 mls @ 999 mls/hr 09/14/23 23:42 09/15/23 01:22 D5ns IVCONT 09/15/23 00:42 Infused .Q1H1M ONE Infusion Iohexol 85 ml 09/15/23 03:43 09/15/23 03:43 Iohexol 350 Mg/Ml 100 Ml Infus..Btl IV 09/15/23 03:44 85 ml ONCE ONE Administration Ondansetron HCl 4 mg 09/14/23 15:09 09/14/23 15:11 Ondansetron Odt 4 Mg Tab.Rapdis TRANSLINGU 09/14/23 15:10 4 mg ONCE ONE Administration Ondansetron HCl 4 mg 09/14/23 17:27 09/14/23 17:28 Ondansetron Hcl 4 Mg/2 Ml Vial IVPUSH 09/14/23 17:28 4 mg ONCE ONE Administration Pantoprazole Sodium 40 mg 09/15/23 00:55 09/15/23 01:11 Pantoprazole Sodium 40 Mg/10 Ml Vial IVPUSH 09/15/23 00:56 40 mg ONCE ONE Administration Prochlorperazine Edisylate 10 mg 09/15/23 00:53 09/15/23 01:11 Prochlorperazine Edisylate 10 Mg/2 Ml Vial IVPUSH 09/15/23 00:54 10 mg ONCE ONE Administration Sodium Bicarbonate 50 meq 09/14/23 19:04 09/14/23 19:36 Sodium Bicarbonate 8.4% 50 Meq/50 Ml Syringe IVPUSH 09/14/23 19:05 50 meq ONCE ONE Administration Sodium Bicarbonate 50 meq 09/14/23 22:53 09/14/23 23:14 Sodium Bicarbonate 8.4% 50 Meq/50 Ml Syringe IVPUSH 09/14/23 22:54 50 meq ONCE ONE Administration Medical Decision Making Medical Decision Making MDM Narrative: -my interpretation of labs: Hematology shows a white blood cell count of 16.7, chronic for the patient. Patient's blood gases show a pH of 7.03 and a bicarb of 6. Patient's lipase is 138, but patient does not have any abdominal pain at all -patient was given IV fluids, D5 normal saline, Zofran, Protonix, Compazine, serum bicarbonate amp push and bicarbonate drip, thiamine -on repeat labs, patient's pH improving, however the bicarb is still on the lower side, currently 8. -I reviewed patient's past medical records, patient usually has a low bicarb. Last month when she was discharged, her bicarb was 16. -patient likely has alcoholic ketoacidosis versus renal tubular acidosis. -overall, patient is improving, patient's vitals improving. Still slightly tachycardic between 100 and 110. Patient overall feeling much better. -I discussed the patient with Dr. Jamison agrees that patient needs ICU level of care -we do not have a bed in the ICU here at [facility] -[facility] is closed for ICU transfers, so is [facility], Jenny, [facility] Bill -I discussed with the patient that the best option would be transferring her to [place]. Patient states that she absolutely refuses to go to [place]. Patient states that she will not risk her insurance not covering the cost of the ambulance transfer and the medical cost. Patient states that she would rather risk going against medical advice than being transferred. -I spoke to the patient's nurse, charge nurse and nursing contact centre supervisor. We will continue the drip and patient can not go to the floor. -patient's last venous blood gas at 3 in the morning, pH significantly improved to 7.36, and bicarb improved to 19 -I discussed the patient with Dr. Leigh, patient being admitted to the floor. -I discussed the patient with my colleague Dr. Wright, overall patient is stable, good blood pressure, heart rate between [address] scan of the abdomen/pelvis pending. 07:[address] scan of the abdomen pelvis was unremarkable. CT scan of the patient's abdomen pelvis with IV contrast did not reveal any significant abnormalities which is reassuring. Dr. Redd contacted me this morning to discuss the patient's admission, he was concerned that the patient's bicarb may still be low and requested that I repeat a CBC, CMP and VBG. He states that he will evaluate the patient this morning he determine if the patient is appropriate to be admitted to the medical floor or if the patient needs a higher level of care. CT abdomen pelvis w IV con IMPRESSION: No acute findings identified in the abdomen/pelvis. Dictated By: Scotty Johnson MD Differential Diagnosis Differential Diagnoses: The differential diagnosis associated with the presentation includes (As above) Admission/Observation Consideration of admission/observation: Escalation of care including admission/observation considered Consult Healthcare Provider Management of the patient was discussed with: Workers Compensation Attorney Lab Data MDM Lab Attestation statement: I reviewed the patient's lab results. 09/14/23 15:24 09/14/23 22:07 Labs: Lab Results 09/14/23 09/14/23 09/14/23 Range/Units 15:24 15:28 17:27 WBC 16.7 H (4.8-10.8) X10*3/uL RBC 5.05 D (4.20-5.50) X10*6/uL Hgb 15.6 D (12.0-16.0) g/dl Hct 49.0 H D (37.0-47.0) % MCV 97.0 (80.0-98.0) fL MCH 30.9 (27.0-33.0) pg MCHC 31.8 (31.0-35.0) g/dl RDW 12.1 (11.0-16.0) % Plt Count 325 D (160-400) X10*3/uL MPV 8.8 L (9.4-12.3) fL Immature Gran % (Auto) 0.5 H (0.0-0.4) % Neut % (Auto) 87.6 H (45-73) % Lymph % (Auto) 3.4 L (20-40) % Parke % (Auto) 8.0 (2-11) % Eos % (Auto) 0.0 (0-4) % Baso % (Auto) 0.5 (0-2) % Lymph # (Auto) 0.6 L (1.2-4.9) X10*3/uL Parke # (Auto) 1.3 H (0.1-1.2) X10*3/uL Eos # (Auto) 0.0 (0.0-0.4) X10*3/uL Baso # (Auto) 0.1 (0.0-0.2) X10*3/uL Abs Immat Gran (auto) 0.09 H (0.00-0.03) X10*3/uL Absolute Neuts (auto) 14.6 H (2.0-8.3) x10*3/uL Absolute Nucleated RBC 0.000 (0.0-0.012) X10*3/uL Nucleated RBC % (auto) 0.0 (0.0-0.2) /100WBC Hold Purple Top SEE NOTE VBG pH 7.03 L* (7.32-7.43) VBG pCO2 23 mmHg VBG pO2 66 mmHg VBG HCO3 6 L (22-26) mmol/L VBG O2 Saturation 86.0 % VBG Base Excess -22.7 mmol/L Sodium 134 L (135-145) mmol/L Potassium 4.2 D (3.3-5.1) mmol/L Chloride 99 (96-108) mmol/L Carbon Dioxide 6 L* D (22-29) mmol/L Anion Gap 33 H (12-20) BUN 14 (9-16) mg/dL Creatinine 1.34 (0.5-1.4) mg/dL Estim Creat Clear Calc 51.7 Estimated GFR 47 POC Glucose (60-115) mg/dL Random Glucose 239 H (60-115) mg/dL Lactic Acid (0.5-2.0) mmol/L Calcium 10.0 D (8.4-10.2) mg/dL Magnesium 2.6 (1.6-2.6) mg/dL Total Bilirubin 0.7 (0.0-1.0) mg/dL Direct Bilirubin 0.2 (0.0-0.5) mg/dL AST 44 H (5-31) U/L ALT 42 H (0-31) U/L Alkaline Phosphatase 78 (39-117) U/L Total Protein 10.5 H (6.5-8.0) g/dL Albumin 6.3 H (3.5-5.0) g/dL Lipase 138 H (8-78) U/L Beta-Hydroxybutyrate (0.02-0.27) mmol/L Beta HCG, Quant < 2 mIU/mL Urine Color Yellow Urine Appearance Clear Urine pH 6.0 (5.0-9.0) Ur Specific [place] >= 1.030 H (1.005-1.025) Urine Protein >=1000 (4+) H (Neg-Trace) mg/dL Urine Glucose (UA) Negative (Negative) mg/dL Urine Ketones >=160 (Negative) mg/dL Urine Blood Moderate (2+) H (Negative) Urine Nitrite Negative (Negative) Ur Leukocyte Esterase Negative (Negative) Urine RBC 0-2 (0-2) /HPF Urine WBC 0-5 (0-5) /HPF Ur Squamous Epith Cells 0-2 (0-2) /HPF Urine Bacteria None Seen (None Seen) Hyaline Casts >20 (0-2) /LPF Urine Test NEGATIVE (NEGATIVE) Salicylates (15-30) mg/dL Acetaminophen (<30) mcg/mL Ethyl Alcohol < 10 mg/dL Influenza Type A (PCR) NEGATIVE (Negative) Influenza Type B (PCR) NEGATIVE (Negative) RSV RNA Qual (PCR) NEGATIVE (Negative) SARS-CoV-2 RNA (RT-PCR) NEGATIVE (Negative) 09/14/23 09/14/23 09/14/23 Range/Units 19:14 19:24 19:28 WBC (4.8-10.8) X10*3/uL RBC (4.20-5.50) X10*6/uL Hgb (12.0-16.0) g/dl Hct (37.0-47.0) % MCV (80.0-98.0) fL MCH (27.0-33.0) pg MCHC (31.0-35.0) g/dl RDW (11.0-16.0) % Plt Count (160-400) X10*3/uL MPV (9.4-12.3) fL Immature Gran % (Auto) (0.0-0.4) % Neut % (Auto) (45-73) % Lymph % (Auto) (20-40) % Parke % (Auto) (2-11) % Eos % (Auto) (0-4) % Baso % (Auto) (0-2) % Lymph # (Auto) (1.2-4.9) X10*3/uL Parke # (Auto) (0.1-1.2) X10*3/uL Eos # (Auto) (0.0-0.4) X10*3/uL Baso # (Auto) (0.0-0.2) X10*3/uL Abs Immat Gran (auto) (0.00-0.03) X10*3/uL Absolute Neuts (auto) (2.0-8.3) x10*3/uL Absolute Nucleated RBC (0.0-0.012) X10*3/uL Nucleated RBC % (auto) (0.0-0.2) /100WBC Hold Purple Top VBG pH 7.12 L* (7.32-7.43) VBG pCO2 17 mmHg VBG pO2 104 mmHg VBG HCO3 6 L (22-26) mmol/L VBG O2 Saturation 99.0 % VBG Base Excess -20.8 mmol/L Sodium (135-145) mmol/L Potassium (3.3-5.1) mmol/L Chloride (96-108) mmol/L Carbon Dioxide (22-29) mmol/L Anion Gap (12-20) BUN (9-16) mg/dL Creatinine (0.5-1.4) mg/dL Estim Creat Clear Calc Estimated GFR POC Glucose (60-115) mg/dL Random Glucose (60-115) mg/dL Lactic Acid 0.9 (0.5-2.0) mmol/L Calcium (8.4-10.2) mg/dL Magnesium (1.6-2.6) mg/dL Total Bilirubin (0.0-1.0) mg/dL Direct Bilirubin (0.0-0.5) mg/dL AST (5-31) U/L ALT (0-31) U/L Alkaline Phosphatase (39-117) U/L Total Protein (6.5-8.0) g/dL Albumin (3.5-5.0) g/dL Lipase (8-78) U/L Beta-Hydroxybutyrate 11.34 H (0.02-0.27) mmol/L Beta HCG, Quant mIU/mL Urine Color Urine Appearance Urine pH (5.0-9.0) Ur Specific [place] (1.005-1.025) Urine Protein (Neg-Trace) mg/dL Urine Glucose (UA) (Negative) mg/dL Urine Ketones (Negative) mg/dL Urine Blood (Negative) Urine Nitrite (Negative) Ur Leukocyte Esterase (Negative) Urine RBC (0-2) /HPF Urine WBC (0-5) /HPF Ur Squamous Epith Cells (0-2) /HPF Urine Bacteria (None Seen) Hyaline Casts (0-2) /LPF Urine Test (NEGATIVE) Salicylates (15-30) mg/dL Acetaminophen (<30) mcg/mL Ethyl Alcohol mg/dL Influenza Type A (PCR) (Negative) Influenza Type B (PCR) (Negative) RSV RNA Qual (PCR) (Negative) SARS-CoV-2 RNA (RT-PCR) (Negative) 09/14/23 09/15/23 09/15/23 Range/Units 22:07 01:42 02:52 WBC (4.8-10.8) X10*3/uL RBC (4.20-5.50) X10*6/uL Hgb (12.0-16.0) g/dl Hct (37.0-47.0) % MCV (80.0-98.0) fL MCH (27.0-33.0) pg MCHC (31.0-35.0) g/dl RDW (11.0-16.0) % Plt Count (160-400) X10*3/uL MPV (9.4-12.3) fL Immature Gran % (Auto) (0.0-0.4) % Neut % (Auto) (45-73) % Lymph % (Auto) (20-40) % Parke % (Auto) (2-11) % Eos % (Auto) (0-4) % Baso % (Auto) (0-2) % Lymph # (Auto) (1.2-4.9) X10*3/uL Parke # (Auto) (0.1-1.2) X10*3/uL Eos # (Auto) (0.0-0.4) X10*3/uL Baso # (Auto) (0.0-0.2) X10*3/uL Abs Immat Gran (auto) (0.00-0.03) X10*3/uL Absolute Neuts (auto) (2.0-8.3) x10*3/uL Absolute Nucleated RBC (0.0-0.012) X10*3/uL Nucleated RBC % (auto) (0.0-0.2) /100WBC Hold Purple Top VBG pH 7.31 L (7.32-7.43) VBG pCO2 15 mmHg VBG pO2 243 mmHg VBG HCO3 7 L (22-26) mmol/L VBG O2 Saturation 100.0 % VBG Base Excess -15.2 mmol/L Sodium 132 L (135-145) mmol/L Potassium 4.6 (3.3-5.1) mmol/L Chloride 106 (96-108) mmol/L Carbon Dioxide 8 L* D (22-29) mmol/L Anion Gap 23 H (12-20) BUN 10 (9-16) mg/dL Creatinine 1.05 (0.5-1.4) mg/dL Estim Creat Clear Calc 66.0 Estimated GFR > 60 POC Glucose 237 H (60-115) mg/dL Random Glucose 299 H (60-115) mg/dL Lactic Acid (0.5-2.0) mmol/L Calcium 8.8 D (8.4-10.2) mg/dL Magnesium (1.6-2.6) mg/dL Total Bilirubin (0.0-1.0) mg/dL Direct Bilirubin (0.0-0.5) mg/dL AST (5-31) U/L ALT (0-31) U/L Alkaline Phosphatase (39-117) U/L Total Protein (6.5-8.0) g/dL Albumin (3.5-5.0) g/dL Lipase (8-78) U/L Beta-Hydroxybutyrate 5.99 H (0.02-0.27) mmol/L Beta HCG, Quant mIU/mL Urine Color Urine Appearance Urine pH (5.0-9.0) Ur Specific [place] (1.005-1.025) Urine Protein (Neg-Trace) mg/dL Urine Glucose (UA) (Negative) mg/dL Urine Ketones (Negative) mg/dL Urine Blood (Negative) Urine Nitrite (Negative) Ur Leukocyte Esterase (Negative) Urine RBC (0-2) /HPF Urine WBC (0-5) /HPF Ur Squamous Epith Cells (0-2) /HPF Urine Bacteria (None Seen) Hyaline Casts (0-2) /LPF Urine Test (NEGATIVE) Salicylates < 5.0 L (15-30) mg/dL Acetaminophen < 3 (<30) mcg/mL Ethyl Alcohol mg/dL Influenza Type A (PCR) (Negative) Influenza Type B (PCR) (Negative) RSV RNA Qual (PCR) (Negative) SARS-CoV-2 RNA (RT-PCR) (Negative) 09/15/23 Range/Units 02:55 WBC (4.8-10.8) X10*3/uL RBC (4.20-5.50) X10*6/uL Hgb (12.0-16.0) g/dl Hct (37.0-47.0) % MCV (80.0-98.0) fL MCH (27.0-33.0) pg MCHC (31.0-35.0) g/dl RDW (11.0-16.0) % Plt Count (160-400) X10*3/uL MPV (9.4-12.3) fL Immature Gran % (Auto) (0.0-0.4) % Neut % (Auto) (45-73) % Lymph % (Auto) (20-40) % Parke % (Auto) (2-11) % Eos % (Auto) (0-4) % Baso % (Auto) (0-2) % Lymph # (Auto) (1.2-4.9) X10*3/uL Parke # (Auto) (0.1-1.2) X10*3/uL Eos # (Auto) (0.0-0.4) X10*3/uL Baso # (Auto) (0.0-0.2) X10*3/uL Abs Immat Gran (auto) (0.00-0.03) X10*3/uL Absolute Neuts (auto) (2.0-8.3) x10*3/uL Absolute Nucleated RBC (0.0-0.012) X10*3/uL Nucleated RBC % (auto) (0.0-0.2) /100WBC Hold Purple Top VBG pH 7.36 (7.32-7.43) VBG pCO2 32 mmHg VBG pO2 46 mmHg VBG HCO3 19 L (22-26) mmol/L VBG O2 Saturation 82.0 % VBG Base Excess -5.3 mmol/L Sodium (135-145) mmol/L Potassium (3.3-5.1) mmol/L Chloride (96-108) mmol/L Carbon Dioxide (22-29) mmol/L Anion Gap (12-20) BUN (9-16) mg/dL Creatinine (0.5-1.4) mg/dL Estim Creat Clear Calc Estimated GFR POC Glucose (60-115) mg/dL Random Glucose (60-115) mg/dL Lactic Acid (0.5-2.0) mmol/L Calcium (8.4-10.2) mg/dL Magnesium (1.6-2.6) mg/dL Total Bilirubin (0.0-1.0) mg/dL Direct Bilirubin (0.0-0.5) mg/dL AST (5-31) U/L ALT (0-31) U/L Alkaline Phosphatase (39-117) U/L Total Protein (6.5-8.0) g/dL Albumin (3.5-5.0) g/dL Lipase (8-78) U/L Beta-Hydroxybutyrate (0.02-0.27) mmol/L Beta HCG, Quant mIU/mL Urine Color Urine Appearance Urine pH (5.0-9.0) Ur Specific [place] (1.005-1.025) Urine Protein (Neg-Trace) mg/dL Urine Glucose (UA) (Negative) mg/dL Urine Ketones (Negative) mg/dL Urine Blood (Negative) Urine Nitrite (Negative) Ur Leukocyte Esterase (Negative) Urine RBC (0-2) /HPF Urine WBC (0-5) /HPF Ur Squamous Epith Cells (0-2) /HPF Urine Bacteria (None Seen) Hyaline Casts (0-2) /LPF Urine Test (NEGATIVE) Salicylates (15-30) mg/dL Acetaminophen (<30) mcg/mL Ethyl Alcohol mg/dL Influenza Type A (PCR) (Negative) Influenza Type B (PCR) (Negative) RSV RNA Qual (PCR) (Negative) SARS-CoV-2 RNA (RT-PCR) (Negative) Critical Care Time Critical Care Time Critical Care Time: Yes Total Critical Care Time: 120 Attestation: I have personally provided critical care time. Time includes review of lab data, radiology results, discussion with consultants, and monitoring for potential decompensation. Intervention performed as documented. Discharge Plan Discharge Clinical Impression: Renal tubular acidosis Patient Disposition: Admitted As Inpatient Print Language: Burmese
[2023-09-14 15:07] VITALS: BP 148/94; PULSE 138; RESP 18; TEMP 36; O2SAT 99; BMI 21.3
[2023-09-14] MEDS: Ondansetron ODT 4 MG TAB.RAPDIS TRANSLINGU (15:11)
[2023-09-14 15:29] LABS: MANUAL DIFF FLAG NO
[2023-09-14 15:32] LABS: Basophils Absolute Auto 0.1 X10*3/uL (0.0-0.2); Basophils Percent Auto 0.5 % (0-2); Hemoglobin 15.6 g/dl (12.0-16.0); Imm Gran Abs Auto 0.09 X10*3/uL (0.00-0.03); Imm Gran Pct Auto 0.5 % (0.0-0.4); Lymphocytes Absolute Auto 0.6 X10*3/uL (1.2-4.9); Lymphocytes Percent Auto 3.4 % (20-40); Mean Corpuscular HGB Conc 31.8 g/dl (31.0-35.0); Mean Corpuscular Hemoglobin 30.9 pg (27.0-33.0); Mean Platelet Volume 8.8 fL (9.4-12.3); Monocytes Absolute Auto 1.3 X10*3/uL (0.1-1.2); Neutrophils Absolute Auto 14.6 x10*3/uL (2.0-8.3); Neutrophils Percent Auto 87.6 % (45-73); Platelet Count 325 X10*3/uL (160-400); Red Blood Count 5.05 X10*6/uL (4.20-5.50); Red Cell Distribution Width 12.1 % (11.0-16.0); White Blood Count 16.7 X10*3/uL (4.8-10.8)
[2023-09-14 15:42] LABS: Venous Blood Gas Refer to POC result
[2023-09-14 15:43] LABS: VBG Base Excess -22.7 mmol/L; VBG HCO3 6 mmol/L (22-26); VBG pCO2 23 mmHg; VBG pH 7.03 (7.32-7.43); VBG pO2 66 mmHg
[2023-09-14 16:08] LABS: Alanine Aminotransferase 42 U/L (0-31); Albumin Level 6.3 g/dL (3.5-5.0); Alkaline Phosphatase 78 U/L (39-117); Anion Gap 33 (12-20); Aspartate Amino Transferase 44 U/L (5-31); Bilirubin Direct 0.2 mg/dL (0.0-0.5); Bilirubin Total 0.7 mg/dL (0.0-1.0); Blood Urea Nitrogen 14 mg/dL (9-16); Chloride 99 mmol/L (96-108); Creatinine Clr Calc Pharmacy 51.7; Estimated Glomerular Filt Rate 47; Ethanol < 10 mg/dL; Glucose Random 239 mg/dL (60-115); Lipase 138 U/L (8-78); Magnesium 2.6 mg/dL (1.6-2.6); Potassium 4.2 mmol/L (3.3-5.1); Sodium 134 mmol/L (135-145); Total Protein 10.5 g/dL (6.5-8.0)
[2023-09-14 16:10] LABS: Influenza A PCR NEGATIVE (Negative); Influenza B PCR NEGATIVE (Negative); Resp Syncy Virus RNA Qual PCR NEGATIVE (Negative); SARS COV2 PCR INHOUSE NEGATIVE (Negative)
[2023-09-14 16:25] LABS: Carbon Dioxide 6 mmol/L (22-29)
[2023-09-14 17:00] VITALS: BP 145/90; PULSE 133; RESP 18; TEMP 36.6; O2SAT 98
[2023-09-14] MEDS: Thiamine HCL 100 MG in 0.9 % Sodium Chloride 100 ML 202 MG IV (17:19)
[2023-09-14] MEDS: Dextrose 5 % and 0.9 % NaCl 1,000 ML 999 ML IVCONT (17:23)
[2023-09-14] MEDS: ondansetron HCL 4 MG/2 ML VIAL IVPUSH (17:28)
[2023-09-14 17:39] LABS: Appearance Urine Clear; Color Urine Yellow; Glucose Urine UA Negative (Negative); Leukocyte Esterase Urine Negative (Negative); Nitrite Urine Negative (Negative); Specific Gravity - Urine >= 1.030 (1.005-1.025); UMIC TRIGGER UACC YES; Urine Blood Moderate (2+) (Negative); Urine Ketones >=160 mg/dL (Negative); Urine Protein >=1000 (4+) mg/dL (Neg-Trace)
[2023-09-14 17:40] LABS: UPreg QC Valid YES; Urine Pregnancy NEGATIVE (NEGATIVE)
[2023-09-14 18:18] LABS: Bacteria Urine None Seen (None Seen); Hyaline Casts Urine >20 /LPF (0-2); RBC Urine 0-2 /HPF (0-2); Squamous Epithelial Cell Urine 0-2 /HPF (0-2); WBC Urine 0-5 /HPF (0-5)
[2023-09-14 19:13] VITALS: BP 139/93; PULSE 129; RESP 18; TEMP 36.7; O2SAT 98
--- NOTE | 2023-09-14 19:14 | MHC.EDTECH ---
This tech took over care of patient at 1900,patient was changed into hospital attire,vitals taken,HR elevated at 129 RN Kim is aware. Labs obtained and sent to lab,call pepper in reach
[2023-09-14] MEDS: Sodium Bicarbonate 8.4% 50 MEQ/50 ML SYRINGE IVPUSH ×2 (19:36→23:14)
[2023-09-14 19:37] LABS: VBG Base Excess -20.8 mmol/L; VBG HCO3 6 mmol/L (22-26); VBG pCO2 17 mmHg; VBG pH 7.12 (7.32-7.43); VBG pO2 104 mmHg
[2023-09-14 19:38] LABS: Venous Blood Gas Refer to POC result
[2023-09-14] MEDS: Sodium Bicarbonate 8.4% 150 MEQ in Dextrose 5 % 850 ML 100 MEQ IV (19:45)
[2023-09-14 19:47] LABS: HCG Quantitative < 2 mIU/mL
[2023-09-14 19:47] LABS: Lactic Acid 0.9 mmol/L (0.5-2.0)
[2023-09-14 19:58] LABS: Beta-Hydroxybutyrate 11.34 mmol/L (0.02-0.27)
--- NOTE | 2023-09-14 21:05 | PC.NURSE ---
Patient remains tachycardic hr 130-137. Patient denies chest pain/SOB. Abdominal pain in RUQ at tolerable level 08/[address] Mcgee notified.
[2023-09-14 21:56] VITALS: BP 136/92; PULSE 126; RESP 18; TEMP 36.7; O2SAT 97
--- NOTE | 2023-09-14 22:10 | MHC.EDTECH ---
Hourly rounds and vitals completed HR 126 RN aware,patient is resting at this time,Belongings list completed and copy placed in chart
[2023-09-14 22:17] LABS: Venous Blood Gas Refer to POC result
[2023-09-14 22:17] LABS: VBG Base Excess -15.2 mmol/L; VBG HCO3 7 mmol/L (22-26); VBG pCO2 15 mmHg; VBG pH 7.31 (7.32-7.43); VBG pO2 243 mmHg
[2023-09-14 22:30] LABS: Anion Gap 23 (12-20); Beta-Hydroxybutyrate 5.99 mmol/L (0.02-0.27); Blood Urea Nitrogen 10 mg/dL (9-16); Calcium 8.8 mg/dL (8.4-10.2); Carbon Dioxide 8 mmol/L (22-29); Chloride 106 mmol/L (96-108); Estimated Glomerular Filt Rate > 60; Glucose Random 299 mg/dL (60-115); Potassium 4.6 mmol/L (3.3-5.1); Sodium 132 mmol/L (135-145)
[2023-09-15] VITALS (12 sets, daily range): BP systolic 117–151; BP diastolic 67–93; PULSE 85–127; RESP 14–20; TEMP 36.6–37.4; O2SAT 96–100
[2023-09-15] MEDS: Dextrose 5 % and 0.9 % NaCl 1,000 ML 999 ML IVCONT (00:20)
--- NOTE | 2023-09-15 00:54 | MHC.EDTECH ---
Patient vomited 300MLS of green liquid, made aware
[2023-09-15] MEDS: Prochlorperazine Edisylate 10 MG/2 ML VIAL IVPUSH (01:11)
[2023-09-15] MEDS: Pantoprazole Sodium 40 MG/10 ML VIAL IVPUSH ×3 (01:11→22:05)
--- NOTE | 2023-09-15 01:44 | MHC.EDTECH ---
Hourly rounds and vitals completed,lab drawn and sent to lab.
[2023-09-15 02:07] LABS: Acetaminophen LAB < 3 mcg/mL (<30); Salicylate < 5.0 mg/dL (15-30)
[2023-09-15 02:57] LABS: Glucose, Whole Blood 237 mg/dL (60-115)
--- NOTE | 2023-09-15 02:58 | MHC.EDTECH ---
Lab drawn and sent to lab,hourly rounds and vitals completed.
[2023-09-15 03:01] LABS: Venous Blood Gas Refer to POC result
[2023-09-15 03:02] LABS: VBG Base Excess -5.3 mmol/L; VBG HCO3 19 mmol/L (22-26); VBG pCO2 32 mmHg; VBG pH 7.36 (7.32-7.43); VBG pO2 46 mmHg
--- NOTE | 2023-09-15 03:21 | PC.NURSE ---
Per Dr. Grossman's verbal order OK to discontinue LR 999 mL/hr IV.
--- NOTE | 2023-09-15 03:34 | PC.NURSE ---
Patient taken to CT scan.
[2023-09-15] MEDS: iohexoL 350 MG/ML 100 ML INFUS..BTL 85 ML IV (03:43)
--- NOTE | 2023-09-15 03:58 | PC.NURSE ---
Patient is back from CT scan, offers no complains. Placed on radiographer cardiac catheterization. Patient is afebrile, HR 100-115, sinus tachy, BP 140/85. Patient requested and given ice chips, tolerated well, no nausea, vomiting. Call pepper in patient's reach.
--- NOTE | 2023-09-15 04:22 | MHC.EDTECH ---
Hourly rounds and vitals completed,patient got up to commode and urinated a large amount,patient is resting,warm blanket given.
--- NOTE | 2023-09-15 06:02 | MHC.EDTECH ---
Hourly rounds and vitals completed,HR 119 RN aware,patient is resting comfortably.
--- NOTE | 2023-09-15 06:34 | PC.NURSE ---
Patient is alert and oriented x5. She reports nausea and abdominal/chest pressure resolved, no vomiting. Vital signs improving. BP stable 140-124/93-91, HR 100-118, RR 16-18. O2 Sat 97-98% RA. Patient is afebrile. Bicarb drip infusing at 100 ml/hr via 20 G IV line in R AC. Patient is able to make her needs known, call pepper within patient's reach.
[2023-09-15] MEDS: Sodium Bicarbonate 8.4% 150 MEQ in Dextrose 5 % 850 ML 100 MEQ IV (07:11)
[2023-09-15 07:53] LABS: Basophils Percent Auto 0.3 % (0-2); Hematocrit 33.9 % (37.0-47.0); Imm Gran Abs Auto 0.03 X10*3/uL (0.00-0.03); Imm Gran Pct Auto 0.3 % (0.0-0.4); Lymphocytes Percent Auto 8.8 % (20-40); MANUAL DIFF FLAG SCAN; Mean Corpuscular HGB Conc 35.4 g/dl (31.0-35.0); Mean Corpuscular Hemoglobin 31.4 pg (27.0-33.0); Mean Corpuscular Volume 88.7 fL (80.0-98.0); Mean Platelet Volume 8.9 fL (9.4-12.3); Monocytes Absolute Auto 1.6 X10*3/uL (0.1-1.2); Monocytes Percent Auto 13.4 % (2-11); Neutrophils Percent Auto 77.2 % (45-73); Platelet Count 244 X10*3/uL (160-400); Red Blood Count 3.82 X10*6/uL (4.20-5.50); Red Cell Distribution Width 11.9 % (11.0-16.0); SCAN SMEAR FLAG 1; White Blood Count 11.7 X10*3/uL (4.8-10.8)
[2023-09-15 07:54] LABS: VBG HCO3 21 mmol/L (22-26); VBG pCO2 30 mmHg; VBG pH 7.45 (7.32-7.43); VBG pO2 68 mmHg
[2023-09-15 07:56] LABS: Venous Blood Gas Refer to POC result
[2023-09-15 08:13] LABS: SLIDE REVIEW VERIFIED
[2023-09-15 08:16] LABS: Alanine Aminotransferase 24 U/L (0-31); Albumin Level 4.5 g/dL (3.5-5.0); Alkaline Phosphatase 50 U/L (39-117); Anion Gap 15 (12-20); Aspartate Amino Transferase 21 U/L (5-31); Bilirubin Total 0.9 mg/dL (0.0-1.0); Blood Urea Nitrogen 6 mg/dL (9-16); Calcium 8.7 mg/dL (8.4-10.2); Carbon Dioxide 22 mmol/L (22-29); Chloride 103 mmol/L (96-108); Creatinine Clr Calc Pharmacy 85.5; Estimated Glomerular Filt Rate > 60; Glucose Random 115 mg/dL (60-115); Potassium 3.2 mmol/L (3.3-5.1); Sodium 137 mmol/L (135-145); Total Protein 7.2 g/dL (6.5-8.0)
[2023-09-15 08:19] LABS: Estimated Average Glucose 103 mg/dL; Hemoglobin A1c % 5.2 % (<6.0)
--- NOTE | 2023-09-15 08:23 | P.HPHOSP_ITS ---
History of Present Illness Date of Service: 09/15/23 Attending physician on admission: Enrrique Redd Chief Complaint: Nausea vomitin 28-year-old female with alcohol abuse history, history of alcoholic ketosis and withdrawal: Came to the hospital because 2-3 days symptoms of nausea and vomiting which started after she drank alcohol(according to the patient she drink few drinks of wine) , also uses marijuana: Subsequently from yesterday she started having some epigastric discomfort as well as diarrhea in addition to nausea vomiting-so decided to come to the hospital. In ED: Patient was found to have bicarb of 6, with multiple electrolytic abnormalities including hyponatremia, hypokalemia, anion gap of 23, elevated beta hydroxybutyrate-patient received aggressive fluid resuscitation, bicarb drip, also fluid with dextrose, and antiemetics symptomatic treatment: Currently has bicarb of 8, repeat labs are pending, Admission is requested for alcoholic ketosis, decreased p.o. intake, persistent nausea vomiting,, unable to take p.o.. Lab imaging reviewed: Mild leukocytosis, electrolytic abnormalities as above in HPI. CT abdomen negative. Denies any new complaint of chest pain or shortness of breath or abdominal pain or fever . Denies any cough or weakness or numbness or any urinary c/o. Review of Systems 2 Review of Systems: Yes all other systems are reviewed and are negative [facility] [place] Medical History Alcohol use disorder Ulcer Social History Household Members: Significant Other Household Members Other:: boyfriend Housing: House Do you presently have visiting nurse or other home services: No Alcohol intake: current Alcohol intake frequency: 3 or more drinks per day Alcohol type: beer, wine and hard liquor Comment: Refused alarms. Patient Tobacco Use Status: Never used Tobacco Smoked in Last 30 Days: Yes Use of substances other than those prescribed or required for medical reasons: Yes Substance Use Type: Marijuana Advance Directives: No Advance Directives Information Provided: No Nutrition Risks: No Nutritional Risk Patient : No service: No Meds Allergies Allergy/AdvReac Type Severity Reaction Status Date / Time amoxicillin Allergy Hives Verified 09/14/23 15:11 Penicillins Allergy Hives Verified 09/14/23 15:11 Active Medications: Current Medications Thiamine HCl 100 mg/ Sodium (Chloride) 101 mls @ 202 mls/hr IV BID SURYA Folic Acid 1 mg/ Sodium (Chloride) 50.2 mls @ 100.4 mls/hr IV DAILY SURYA Lactated Ringer's (Lr) 1,000 mls @ 100 mls/hr IVCONT .Q10H SURYA Ondansetron HCl (Ondansetron Hcl 4 Mg/2 Ml Vial) 4 mg IVPUSH Q6H SURYA Pantoprazole Sodium (Pantoprazole Sodium 40 Mg/10 Ml Vial) 40 mg IVPUSH BID SURYA Sodium Chloride (0.9 % Sodium Chloride Flush 3 Ml Syringe) 3 ml IVFLUSH QSHIFT SURYA Home Medications ?Medication ?Instructions ?Recorded ?Confirmed ?Last Taken ?Type ascorbic acid (vitamin C) 500 mg 500 mg PO DAILY 07/26/23 09/15/23 09/13/23 History tablet magnesium oxide 400 mg (241.3 mg 400 mg PO DAILY 09/15/23 09/15/23 09/13/23 History magnesium) tablet melatonin 5 mg tablet 5 mg PO BEDTIME 09/15/23 09/15/23 09/13/23 History omega 7-orv-bpi-fish oil 300 1 cap PO DAILY 09/15/23 09/15/23 09/13/23 History mg-1,000 mg capsule,delayed release (Fish Oil) omeprazole magnesium 20 mg 20 mg PO DAILY@0630 09/15/23 09/15/23 09/13/23 History capsule,delayed release Physical Exam 2 Vital Signs and Narrative: Vital Signs: Last Vital Signs Temp 97.9 F 09/15/23 08:05 Pulse 110 H 09/15/23 08:05 Resp 18 09/15/23 08:05 BP 117/67 09/15/23 08:05 Pulse Ox 100 09/15/23 08:05 O2 Del Method Room Air 09/15/23 08:05 BMI result Body Mass Index 21.3 Results Labs 09/15/23 07:46 09/15/23 07:46 Labs: Laboratory Results - last 24 hr 09/14/23 09/14/23 09/14/23 15:24 15:28 17:27 MCV 97.0 MCH 30.9 MCHC 31.8 RDW 12.1 Plt Count 325 D MPV 8.8 L Immature Gran % (Auto) 0.5 H Neut % (Auto) 87.6 H Lymph % (Auto) 3.4 L [place] % (Auto) 8.0 Eos % (Auto) 0.0 Baso % (Auto) 0.5 Lymph # (Auto) 0.6 L [place] # (Auto) 1.3 H Eos # (Auto) 0.0 Baso # (Auto) 0.1 Abs Immat Gran (auto) 0.09 H Absolute Neuts (auto) 14.6 H Absolute Nucleated RBC 0.000 Nucleated RBC % (auto) 0.0 Smear Tech's Comments Hold Purple Top SEE NOTE VBG pH 7.03 L* VBG pCO2 23 VBG pO2 66 VBG HCO3 6 L VBG O2 Saturation 86.0 VBG Base Excess -22.7 Anion Gap 33 H Estim Creat Clear Calc 51.7 Estimated GFR 47 POC Glucose Random Glucose 239 H Estimat Average Glucose Hemoglobin A1c % Lactic Acid Calcium 10.0 D Magnesium 2.6 Total Bilirubin 0.7 Direct Bilirubin 0.2 AST 44 H ALT 42 H Alkaline Phosphatase 78 Total Protein 10.5 H Albumin 6.3 H Lipase 138 H Beta-Hydroxybutyrate Beta HCG, Quant < 2 Urine Color Yellow Urine Appearance Clear Urine pH 6.0 Ur Specific [place] >= 1.030 H Urine Protein >=1000 (4+) H Urine Glucose (UA) Negative Urine Ketones >=160 Urine Blood Moderate (2+) H Urine Nitrite Negative Ur Leukocyte Esterase Negative Urine RBC 0-2 Urine WBC 0-5 Ur Squamous Epith Cells 0-2 Urine Bacteria None Seen Hyaline Casts >20 Urine Test NEGATIVE Salicylates Acetaminophen Ethyl Alcohol < 10 Influenza Type A (PCR) NEGATIVE Influenza Type B (PCR) NEGATIVE RSV RNA Qual (PCR) NEGATIVE SARS-CoV-2 RNA (RT-PCR) NEGATIVE 09/14/23 09/14/23 09/14/23 19:14 19:24 19:28 MCV MCH MCHC RDW Plt Count MPV Immature Gran % (Auto) Neut % (Auto) Lymph % (Auto) [place] % (Auto) Eos % (Auto) Baso % (Auto) Lymph # (Auto) [place] # (Auto) Eos # (Auto) Baso # (Auto) Abs Immat Gran (auto) Absolute Neuts (auto) Absolute Nucleated RBC Nucleated RBC % (auto) Smear Tech's Comments Hold Purple Top VBG pH 7.12 L* VBG pCO2 17 VBG pO2 104 VBG HCO3 6 L VBG O2 Saturation 99.0 VBG Base Excess -20.8 Anion Gap Estim Creat Clear Calc Estimated GFR POC Glucose Random Glucose Estimat Average Glucose Hemoglobin A1c % Lactic Acid 0.9 Calcium Magnesium Total Bilirubin Direct Bilirubin AST ALT Alkaline Phosphatase Total Protein Albumin Lipase Beta-Hydroxybutyrate 11.34 H Beta HCG, Quant Urine Color Urine Appearance Urine pH Ur Specific [place] Urine Protein Urine Glucose (UA) Urine Ketones Urine Blood Urine Nitrite Ur Leukocyte Esterase Urine RBC Urine WBC Ur Squamous Epith Cells Urine Bacteria Hyaline Casts Urine Test Salicylates Acetaminophen Ethyl Alcohol Influenza Type A (PCR) Influenza Type B (PCR) RSV RNA Qual (PCR) SARS-CoV-2 RNA (RT-PCR) 09/14/23 09/15/23 09/15/23 22:07 01:42 02:52 MCV MCH MCHC RDW Plt Count MPV Immature Gran % (Auto) Neut % (Auto) Lymph % (Auto) [place] % (Auto) Eos % (Auto) Baso % (Auto) Lymph # (Auto) [place] # (Auto) Eos # (Auto) Baso # (Auto) Abs Immat Gran (auto) Absolute Neuts (auto) Absolute Nucleated RBC Nucleated RBC % (auto) Smear Tech's Comments Hold Purple Top VBG pH 7.31 L VBG pCO2 15 VBG pO2 243 VBG HCO3 7 L VBG O2 Saturation 100.0 VBG Base Excess -15.2 Anion Gap 23 H Estim Creat Clear Calc 66.0 Estimated GFR > 60 POC Glucose 237 H Random Glucose 299 H Estimat Average Glucose Hemoglobin A1c % Lactic Acid Calcium 8.8 D Magnesium Total Bilirubin Direct Bilirubin AST ALT Alkaline Phosphatase Total Protein Albumin Lipase Beta-Hydroxybutyrate 5.99 H Beta HCG, Quant Urine Color Urine Appearance Urine pH Ur Specific [place] Urine Protein Urine Glucose (UA) Urine Ketones Urine Blood Urine Nitrite Ur Leukocyte Esterase Urine RBC Urine WBC Ur Squamous Epith Cells Urine Bacteria Hyaline Casts Urine Test Salicylates < 5.0 L Acetaminophen < 3 Ethyl Alcohol Influenza Type A (PCR) Influenza Type B (PCR) RSV RNA Qual (PCR) SARS-CoV-2 RNA (RT-PCR) 09/15/23 09/15/23 09/15/23 02:55 07:46 07:48 MCV 88.7 D MCH 31.4 MCHC 35.4 H RDW 11.9 Plt Count 244 MPV 8.9 L Immature Gran % (Auto) 0.3 Neut % (Auto) 77.2 H Lymph % (Auto) 8.8 L [place] % (Auto) 13.4 H Eos % (Auto) 0.0 Baso % (Auto) 0.3 Lymph # (Auto) 1.0 L [place] # (Auto) 1.6 H Eos # (Auto) 0.0 Baso # (Auto) 0.0 Abs Immat Gran (auto) 0.03 Absolute Neuts (auto) 9.0 H Absolute Nucleated RBC 0.000 Nucleated RBC % (auto) 0.0 Smear Tech's Comments VERIFIED Hold Purple Top VBG pH 7.36 7.45 H VBG pCO2 32 30 VBG pO2 46 68 VBG HCO3 19 L 21 L VBG O2 Saturation 82.0 96.0 VBG Base Excess -5.3 -1.0 Anion Gap 15 Estim Creat Clear Calc 85.5 Estimated GFR > 60 POC Glucose Random Glucose 115 Estimat Average Glucose 103 Hemoglobin A1c % 5.2 Lactic Acid Calcium 8.7 Magnesium Total Bilirubin 0.9 Direct Bilirubin AST 21 ALT 24 Alkaline Phosphatase 50 Total Protein 7.2 Albumin 4.5 Lipase Beta-Hydroxybutyrate Beta HCG, Quant Urine Color Urine Appearance Urine pH Ur Specific [place] Urine Protein Urine Glucose (UA) Urine Ketones Urine Blood Urine Nitrite Ur Leukocyte Esterase Urine RBC Urine WBC Ur Squamous Epith Cells Urine Bacteria Hyaline Casts Urine Test Salicylates Acetaminophen Ethyl Alcohol Influenza Type A (PCR) Influenza Type B (PCR) RSV RNA Qual (PCR) SARS-CoV-2 RNA (RT-PCR) Imaging Radiologist's Impressions: Impressions Abdomen/Pelvis CT 09/15/23 03:44 IMPRESSION: No acute findings identified in the abdomen/pelvis. Assessment and Plan (1) Hypokalemia: Status: Acute (2) Alcoholic gastritis: Qualifiers: Chronicity: acute Gastritis bleeding: without bleeding Qualified Code(s): K29.20 - Alcoholic gastritis without bleeding Status: Acute (3) Hyponatremia: Status: Acute (4) Nausea vomiting and diarrhea: Status: Acute Plan 28-year-old female with alcohol abuse history, history of alcoholic ketosis and withdrawal: Came to the hospital because 2-3 days symptoms of nausea and vomiting 1. Possible alcoholic gastritis versus viral gastroenteritis or cyclic vomiting syndrome Urine drug screen Ppi, hydration,fluid resuscitation Strongly advised to abstain from alcohol Addiction consult Persistent nausea vomiting: Secondary to above#1 Clear liquid diet trial, IV fluids, ppi. Alcoholic ketosis: Elevated beta hydroxybutyrate, low bicarb, elevated anion gap metabolic acidosis Bicarb improving with bicarb drip-which is stopped now.agma resolved. Mild hyperglycemia secondary to fluid-will check hemoglobin A1c. IV fluid lactated ringer Nephrology evaluation mild Hyponatremia: decreased p.o. intake,Possibly secondary to IV fluids contributin Advised for p.o. intake, monitor BMP q.day. Hypokalemia: Replacements ordered. Alcohol use: History of withdrawal Currently asymptomatic, added CIWA, thiamine folic acid. Patient will benefit from 2 midnight stays secondary to persistent nausea vomiting, alcoholic ketosis, low bicarb, multiple electrolytic abnormalities- need IV fluid, PPIs, aggressive electrolyte replacement, monitor for alcohol withdrawal with CIWA, tele monitoring. Also need expert evaluation due to multiple electrolytic abnormalities. Above management discussed with the patient in detail length she understand and in agreement with the above plan, time spent 70 minute. Patient is full code. Quality Stroke Does the patient have a stroke diagnosis?: No VTE Prior VTE?: No VTE Risk Level:: Medical - moderate - high VTE Device Contraindication: N/A - Device Ordered VTE Drug Contraindication: N/A - Med Ordered
[2023-09-15] MEDS: 0.9 % Sodium Chloride Flush 3 ML SYRINGE IVFLUSH ×2 (08:27→22:06)
[2023-09-15] MEDS: Thiamine HCL 100 MG in 0.9 % Sodium Chloride 100 ML 202 MG IV ×2 (08:28→22:06)
[2023-09-15 08:41] LABS: Amphetamine Screen Urine Not Detected (Not Detect); Barbiturates, Urine Not Detected (Not Detect); Benzodiazepines Screen Urine Not Detected (Not Detect); Buprenorphine Scr Not Detected (Not Detect); Cannabinoid Screen Urine POSITIVE (Not Detect); Cocaine Screen Urine Not Detected (Not Detect); Fentanyl, urine Not Detected (Not Detect); Methadone Screen, Urine Not Detected (Not Detect); Opiate Screen Urine Not Detected (Not Detect); Oxycodone Screen Urine Not Detected (Not Detect); Phencyclidine Screen Urine Not Detected (Not Detect)
--- NOTE | 2023-09-15 08:42 | PC.NURSE ---
assumed care of pt at 0700, a&ox4, denies any nausea/pain at this time. sinus tach, other vss. CIWA = 0. 20G PIV right upper arm placed overnight via u/s. plan for pt admission pending lab results. pharmacy contacted for IV folic acid, sodium bicarb d/c'd by JUL. pt resting quietly.
[2023-09-15 08:57] LABS: Potassium Urine Random 121.8 mmol/L
[2023-09-15] MEDS: ondansetron HCL 4 MG/2 ML VIAL IVPUSH ×2 (09:20→22:06)
[2023-09-15] MEDS: Folic Acid 1 MG in 0.9 % Sodium Chloride 50 ML 100.4 MG IV (09:21)
[2023-09-15] MEDS: Lactated Ringers 1,000 ML 100 ML IVCONT ×2 (09:58→18:42)
--- NOTE | 2023-09-15 09:58 | PHA.MEDREC ---
Pharmacy Consult ? Medication Reconciliation Pharmacy has completed the medication reconciliation.
--- NOTE | 2023-09-15 12:14 | PC.NURSE ---
has not had bm, monitoring in order to send samples when has bm
--- NOTE | 2023-09-15 12:16 | PC.NURSE ---
c/o acid reflux- texted md oliveira to ask for rx per pt req
[2023-09-15 12:19] LABS: Chloride Urine Random < 20.0 mmol/L
--- NOTE | 2023-09-15 12:30 | PC.NURSE ---
declined tums. reports no reflux now
[2023-09-15] MEDS: Multivitamin TABLET 1 TAB PO (12:45)
[2023-09-15] MEDS: Ascorbic Acid 500 MG TABLET PO (12:45)
[2023-09-15] MEDS: Magnesium Oxide 400 MG TABLET PO (12:45)
[2023-09-15] MEDS: Potassium Chloride ER 20 MEQ TAB.ER.PRT PO (12:54)
[2023-09-15 14:10] LABS: Adenovirus PCR Not Detected (Not Detect.); Bordetella parapertussis PCR Not Detected (Not Detect.); Bordetella pertussis PCR Not Detected (Not Detect.); Chlamydia pneumoniae PCR Not Detected (Not Detect.); Coronavirus 229E PCR Not Detected (Not Detect.); Coronavirus HKU1 PCR Not Detected (Not Detect.); Coronavirus NL63 PCR Not Detected (Not Detect.); Coronavirus OC43 PCR Not Detected (Not Detect.); Human metapneumovirus PCR Not Detected (Not Detect.); Influenza A PCR Not Detected (Not Detect.); Influenza B PCR Not Detected (Not Detect.); Mycoplasma pneumoniae PCR Not Detected (Not Detect.); Parainfluenza 1 PCR Not Detected (Not Detect.); Parainfluenza 2 PCR Not Detected (Not Detect.); Parainfluenza 3 PCR Not Detected (Not Detect.); Parainfluenza 4 PCR Not Detected (Not Detect.); RSV PCR Not Detected (Not Detect.); Rhino/Enterovirus PCR Not Detected (Not Detect.)
[2023-09-15 14:17] LABS: SARS-CoV-2 PCR Not Detected (Not Detect.)
[2023-09-15] MEDS: Melatonin 3 MG TABLET 6 MG PO (22:05)
[2023-09-16 04:00] VITALS: BP 114/83; PULSE 95; RESP 20; TEMP 36.7; O2SAT 97
[2023-09-16] MEDS: Lactated Ringers 1,000 ML 100 ML IVCONT (04:58)
[2023-09-16 06:48] LABS: MANUAL DIFF FLAG NO
[2023-09-16 07:00] LABS: Basophils Absolute Auto 0.1 X10*3/uL (0.0-0.2); Eosinophils Percent Auto 0.6 % (0-4); Hematocrit 33.1 % (37.0-47.0); Hemoglobin 11.4 g/dl (12.0-16.0); Imm Gran Abs Auto 0.03 X10*3/uL (0.00-0.03); Imm Gran Pct Auto 0.5 % (0.0-0.4); Lymphocytes Percent Auto 31.3 % (20-40); Mean Corpuscular HGB Conc 34.4 g/dl (31.0-35.0); Mean Corpuscular Hemoglobin 31.5 pg (27.0-33.0); Mean Corpuscular Volume 91.4 fL (80.0-98.0); Mean Platelet Volume 9.3 fL (9.4-12.3); Monocytes Absolute Auto 0.6 X10*3/uL (0.1-1.2); Monocytes Percent Auto 9.7 % (2-11); Neutrophils Absolute Auto 3.6 x10*3/uL (2.0-8.3); Neutrophils Percent Auto 56.9 % (45-73); Platelet Count 222 X10*3/uL (160-400); Red Blood Count 3.62 X10*6/uL (4.20-5.50); Red Cell Distribution Width 11.9 % (11.0-16.0); White Blood Count 6.3 X10*3/uL (4.8-10.8)
[2023-09-16 07:16] LABS: Anion Gap 10 (12-20); Blood Urea Nitrogen 3 mg/dL (9-16); Carbon Dioxide 28 mmol/L (22-29); Chloride 103 mmol/L (96-108); Creatinine Clr Calc Pharmacy 108.2; Estimated Glomerular Filt Rate > 60; Glucose Random 95 mg/dL (60-115); Potassium 3.3 mmol/L (3.3-5.1); Sodium 138 mmol/L (135-145)
[2023-09-16 07:19] VITALS: BP 121/62; PULSE 80; RESP 20; TEMP 36.5; O2SAT 100
--- NOTE | 2023-09-16 09:01 | MHC.CM.PN ---
Pt self-care, lives at home with her boyfriend. Pt will arrange her own transport home at D/C. No HCP, pt declined at this time. No PCP, local list of PCP's given to pt.
[2023-09-16] MEDS: Magnesium Oxide 400 MG TABLET PO (09:22)
[2023-09-16] MEDS: Potassium Chloride ER 20 MEQ TAB.ER.PRT PO (09:22)
[2023-09-16] MEDS: Multivitamin TABLET 1 TAB PO (09:22)
[2023-09-16] MEDS: Ascorbic Acid 500 MG TABLET PO (09:22)
[2023-09-16] MEDS: ondansetron HCL 4 MG/2 ML VIAL IVPUSH (09:23)
[2023-09-16] MEDS: 0.9 % Sodium Chloride Flush 3 ML SYRINGE IVFLUSH (09:23)
[2023-09-16] MEDS: Omeprazole 20 MG CAPSULE.DR PO (09:27)
--- NOTE | 2023-09-16 09:58 | P.DS_ITS ---
DS: Providers Provider Date of Service: 09/16/23 Date of admission: 09/15/23 08:21 Date of discharge: 09/16/23 Primary care physician: None Physician Consults: 09/15/23 07:55 Consult to Nephrology Routine Consulting Provider: [facility] Reason for consultation: MULTIPLE elctrolytic abnormalities ,?RTA Has provider been notified: No 09/15/23 11:34 Addiction Medicine Routine Consulting Provider: Addiction Covering Reason for consultation: alcohol use Attending physician on discharge: Enrrique Redd Discharging clinician: Enrrique Redd DS: Diagnosis Discharge Diagnosis (1) Hypokalemia: Status: Acute (2) Alcoholic gastritis: Status: Acute (3) Hyponatremia: Status: Acute (4) Nausea vomiting and diarrhea: Status: Acute DS: Summary Hospital Course Hospital Course: 28-year-old female with alcohol abuse history, history of alcoholic ketosis and withdrawal: Came to the hospital because 2-3 days symptoms of nausea and vomiting which started after she drank alcohol(according to the patient she drink few drinks of wine) , also uses marijuana: Subsequently from yesterday she started having some epigastric discomfort as well as diarrhea in addition to nausea vomiting-so decided to come to the hospital. In ED: Patient was found to have bicarb of 6, with multiple electrolytic abnormalities including hyponatremia, hypokalemia, anion gap of 23, elevated beta hydroxybutyrate-patient received aggressive fluid resuscitation, bicarb drip, also fluid with dextrose, and antiemetics symptomatic treatment: Currently has bicarb of 8, repeat labs are pending, Admission is requested for alcoholic ketosis, decreased p.o. intake, persistent nausea vomiting,, unable to take p.o.. Lab imaging reviewed: Mild leukocytosis, electrolytic abnormalities as above in HPI. CT abdomen negative. Denies any new complaint of chest pain or shortness of breath or abdominal pain or fever . Denies any cough or weakness or numbness or any urinary c/o. Hospital course: Patient was admitted for possible gastritis versus cyclic vomiting syndrome secondary to marijuana use, alcohol use, multiple electrolytic abnormalities: Lab work-likely had alcoholic ketosis, hyponatremia, hypokalemia, hemoglobin A1c is 5.2, leukocytosis, CT abdomen was negative, UA negative: Patient was started hydrated, bowel rest, antiemetic, also received bicarb drip briefly, aggressive electrolytic replacements-with above supportive care, leukocytosis trending down, no fever no new complaints, anion gap metabolic acidosis improved, tolerating diet, electrolytic abnormalities also corrected. Patient was strongly advised to abstain from alcohol and cutdown marijuana use also to avoid further episodes above. Follow-up outpatient with PCP and BMP outpatient. Above management discussed with the patient in detail length she understand and in agreement with the above plan, time spent 40 minutes and 50% time spent on counseling. Time Attestation Total time managing care of this patient today: 40 mintues. Discharge Coordination Time (in mins): 40 min Quality: Safe Use of Opioids Does Pt have an Active Cancer Diagnosis on the Problem List?: No Quality: Stroke Does the patient have a stroke diagnosis?: No Physical Exam Vital Signs: Vital Signs: Last Vital Signs Temp 97.7 F 09/16/23 07:19 Pulse 80 09/16/23 07:19 Resp 20 09/16/23 07:19 BP 121/62 09/16/23 07:19 Pulse Ox 100 09/16/23 07:19 O2 Del Method Room Air 09/16/23 07:19 BMI result Body Mass Index 21.3 Appearance: Alert.? Oriented X3.? Eyes: Pupils equal, round and reactive to light.? Sclera nonicteric.? ENT: Pharynx normal.? Moist mucous membranes. cvs: rrr, [id number] , no murmur res: clear to auscultation ,no rhonchii or wheezing abd: no rebound or guarding ,nt, bs present. ext pulses present , no cyanosis . neuro: axo3 , nonfocal. DS: Data Data Completed and Pending Completed studies during hospitalization [Text1]: Procedures Detoxification Services for Substance Abuse Treatment (07/26/23) Insertion of Infusion Device into Upper Vein, Percutaneous Approach (03/21/23) Labs on day of discharge: Laboratory Results - last 24 hr 09/14/23 09/15/23 09/16/23 17:27 11:21 06:18 WBC 6.3 RBC 3.62 L Hgb 11.4 L Hct 33.1 L MCV 91.4 MCH 31.5 MCHC 34.4 RDW 11.9 Plt Count 222 MPV 9.3 L Immature Gran % (Auto) 0.5 H Neut % (Auto) 56.9 Lymph % (Auto) 31.3 [place] % (Auto) 9.7 Eos % (Auto) 0.6 Baso % (Auto) 1.0 Lymph # (Auto) 2.0 [place] # (Auto) 0.6 Eos # (Auto) 0.0 Baso # (Auto) 0.1 Abs Immat Gran (auto) 0.03 Absolute Neuts (auto) 3.6 Absolute Nucleated RBC 0.000 Nucleated RBC % (auto) 0.0 Sodium 138 Potassium 3.3 Chloride 103 Carbon Dioxide 28 Anion Gap 10 L BUN 3 L Creatinine 0.64 Estim Creat Clear Calc 108.2 Estimated GFR > 60 Random Glucose 95 Calcium 9.0 Ur Random Chloride < 20.0 Respiratory Panel [place] See Note Adenovirus (Rapid PCR) Not Detected B.pert (TEM-PCR) Not Detected B.parapertussis DNA PCR Not Detected C. pneumoniae DNA (PCR) Not Detected Coronavirus OC43 (PCR) Not Detected Coronavirus HKU1 (PCR) Not Detected Coronavirus 229E (PCR) Not Detected Coronavirus NL63 (PCR) Not Detected Human Metapneumovir PCR Not Detected Influenza A (RT-PCR) Not Detected Influenza B (RT-PCR) Not Detected M. pneumoniae (PCR) Not Detected Parainfluenza 1 (PCR) Not Detected Parainfluenza 2 (PCR) Not Detected Parainfluenza 3 (PCR) Not Detected Parainfluenza 4 (PCR) Not Detected RSV (PCR) Not Detected Entero/Rhino (PCR) Not Detected SARS-CoV-2 RNA (RT-PCR) Not Detected Imaging Chest x-ray: Radiologist's impression: ITS Impressions Abdomen/Pelvis CT 09/15/23 03:44 IMPRESSION: No acute findings identified in the abdomen/pelvis. Discharge Plan Discharge Anticipated Discharge Date/Time: 09/16/23 09:49 Patient Disposition: Home, Self-Care Discharge Diagnosis: nausea ,voimiting ,alcohol use ,hypokalemia,Hyponatremia ,AGMA Referrals: Physician,None [Primary Care Provider] - 1 Week Discharge Medications: New acamprosate 333 mg tablet,delayed release (DR/EC) 666 mg PO TID Qty: 180 0RF Continued ascorbic acid (vitamin C) 500 mg Tablet 500 mg PO DAILY magnesium oxide 400 mg (241.3 mg magnesium) Tablet 400 mg PO DAILY melatonin 5 mg Tablet 5 mg PO BEDTIME omeprazole magnesium 20 mg Capsule,Delayed Release(Dr/Ec) 20 mg PO DAILY@0630 omega 6-mye-ofw-fish oil [Fish Oil] 300-1,000 mg Capsule,Delayed Release(Dr/Ec) 1 cap PO DAILY multivitamin Tablet 1 tab PO DAILY Qty: 30 0RF Discharge Orders: Discharge Order (Routine); Ordered 09/16/23 Ordered By: Enrrique Redd Diet: Advance to usual diet Activity on Discharge: As tolerated Stand Alone Forms: Patient Portal Discharge page Print Language: Syriac Care Plan Goals: Patient was admitted for possible gastritis versus cyclic vomiting syndrome secondary to marijuana use, alcohol use, multiple electrolytic abnormalities: Lab work-likely had alcoholic ketosis, hyponatremia, hypokalemia, hemoglobin A1c is 5.2, leukocytosis, CT abdomen was negative, UA negative: Patient was started hydrated, bowel rest, antiemetic, also received bicarb drip briefly, aggressive electrolytic replacements-with above supportive care, leukocytosis trending down, no fever no new complaints, anion gap metabolic acidosis improved, tolerating diet, electrolytic abnormalities also corrected. Patient was strongly advised to abstain from alcohol and cutdown marijuana use also to avoid further episodes above. Follow-up outpatient with PCP and BMP outpatient. Health Concerns: As above. Plan of Treatment: As above. Assessment: As above. Discharge Date/Time: 09/16/23 12:58
[2023-09-16 11:13] VITALS: BP 120/68; PULSE 88; RESP 20; TEMP 36.7; O2SAT 100
== END 2023-09-16 12:58 | disposition home or self-care (01) | DRG 241 ==
LOC: HO.ED 09-15 03:15 → HO.EDOVER 09-15 08:28 → HO.IMC 09-15 14:55
PROVIDERS: Emergency Medicine Emergency Medical Services; Nurse Practitioner Family; Admitting Provider Internal Medicine; Emergency Provider Emergency Medicine; Visit Provider Internal Medicine
DX: K29.20 Alcoholic gastritis without bleeding (principal); E87.0 Hyperosmolality and hypernatremia; E88.89 Other specified metabolic disorders; E87.6 Hypokalemia; R73.9 Hyperglycemia, unspecified; F10.10 Alcohol abuse, uncomplicated; R11.2 Nausea with vomiting, unspecified; F12.90 Cannabis use, unspecified, uncomplicated; Z20.822 Contact with and (suspected) exposure to COVID-19; Z79.899 Other long term (current) drug therapy
CPT/HCPCS: 0241U; 36415; 74177; 80048; 80053; 80076; 80143; 80179; 80307; 81001; 81025; 82010; 82436; 82803; 82947; 83036; 83605; 83690; 83735; 84133; 84300; 84702; 85025; 87633; 99222; 99285; C9113; J0737; J2405; J3411; J7120; Q9967

== ENCOUNTER → 2023-09-15 08:21 | Outpatient (BNV) | payer OTHER, SELFPAY | PROVIDERS: Admitting Provider Internal Medicine; Emergency Provider Emergency Medicine; Visit Provider Internal Medicine | DX: E87.6 Hypokalemia (principal); K29.20 Alcoholic gastritis without bleeding; E87.1 Hypo-osmolality and hyponatremia; R11.2 Nausea with vomiting, unspecified; R19.7 Diarrhea, unspecified | CPT/HCPCS: 99223; 99239 ==

== ENCOUNTER 2023-09-19 10:21 | Outpatient (AMB) | payer OTHER, SELFPAY ==
[2023-09-19 10:35] VITALS: BP 132/82; PULSE 110; O2SAT 98
--- NOTE | 2023-09-19 10:35 | AM.OFFVISNUR ---
Intake Vital Signs 09/19/23 10:35 BP 132/82 Blood Pressure Location Rt brachial Position Sitting Pulse 110 H Pulse Source Pulse Oximeter Pulse Oximetry (%) 98 Oxygen Delivery Method Room Air Intake Visit Reasons: MAT Restart Allergies amoxicillin Allergy (Verified 09/14/23 15:11) Hives Penicillins Allergy (Verified 09/14/23 15:11) Hives Coding
--- NOTE | 2023-09-19 10:55 | MHC.AM.SUB ---
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 She states she has not been waking up with as much anxiety in the morning as she was when she was drinking She has been having some difficulty sleeping at night Her treatment goal is to be able to drink socially She is interested in trialing naltrexone, states she was started on campral due to the recent shortage of naltrexone, but likes the idea of taking meds less times during the day Tearful at times during the visit [facility] Medical History Alcohol use disorder Ulcer Social History Household Members: Significant Other Household Members Other:: boyfriend Housing: House Do you presently have visiting nurse or other home services: No Alcohol intake: current Alcohol intake frequency: 3 or more drinks per day Alcohol type: beer, wine and hard liquor Comment: Refused alarms. Patient Tobacco Use Status: Never used Tobacco Second Hand Smoke Exposure: No Substance Use Type: Marijuana service: No Review of Systems Const Reports as per HPI Physical Exam Vital Signs: Last Vital Signs Pulse 110 H 09/19/23 10:35 BP 132/82 09/19/23 10:35 Pulse Ox 98 09/19/23 10:35 Oxygen Delivery Method Room Air 09/19/23 10:35 Const General: cooperative and no acute distress Resp Effort & Inspection: normal respiratory effort and able to speak in complete sentences Psych Appearance: grossly normal Mental Status: mental status grossly normal Speech and movement: Normal speech and movement present Affect: normal affect Attitude: cooperative Thought process: Normal thought process present Quality Reporting (2019) Depression/Bipolar (159/160/161/177) PHQ-9: Total score: 13 Assessment & Plan Assessment & Plan (1) Alcohol use disorder: Code(s): F10.90 - Alcohol use, unspecified, uncomplicated Category: Medical Plan: -Stop naltrexone 25mg x 3 days, full tab if well tolerated -Recovery supports discussed -Follow up 2 weeks (2) Major depressive disorder, recurrent, moderate: Code(s): F33.1 - Major depressive disorder, recurrent, moderate Category: Medical Plan: -Start sertraline 25mg/day, discussed with her possible side effects. Reviewed should she have an occurence of self harming thoughts to stop med immediately. Grey look into whether dose was effective at next visit. -She has active counseling referral Medications: New sertraline 25 mg PO DAILY 30 tabs 0RF trazodone 50 mg PO BEDTIME PRN 30 tabs 0RF sleep naltrexone Take 1/2 tab for first few days, if well tolerated advance to full tab 50 mg PO DAILY 30 tabs 0RF Changed From omeprazole magnesium 20 mg PO DAILY@0630 To esomeprazole magnesium 20 mg PO DAILY 30 caps 0RF Refilled esomeprazole magnesium 20 mg PO DAILY 90 caps 0RF PHQ-9 Over the last 2 weeks, how often have you been bothered by any of the following problems? 1. Little interest or pleasure in doing things: several days 2. Feeling down, depressed, or hopeless: nearly every day 3. Trouble falling or staying asleep, or sleeping too much: nearly every day 4. Feeling tired or having little energy: several days 5. Poor appetite or overeating: several days 6. Feeling bad about yourself - or that you are a failure or have let yourself or your family down: nearly every day 7. Trouble concentrating on things, such as reading the newspaper or watching television: several days 8. Moving or speaking so slowly that other people could have noticed. Or the opposite - being so fidgety or restless that you have been moving around a lot more than usual: not at all 9. Thoughts that you would be better off or of hurting yourself in some way: not at all Total score: 13 Depression Screening Interpretation: Negative Depression Screening Done: Yes 74695 - PHQ-9 Billing: Yes Source: Developed by Drs. Mario Garcia, Paradise Winchester, Lanre Galeas and colleagues, with an educational saranya from [employer].
== END 2023-09-19 11:28 | disposition home or self-care (01) ==
PROVIDERS: Visit Provider Nurse Practitioner Family
DX: F10.90 Alcohol use, unspecified, uncomplicated (principal); F33.1 Major depressive disorder, recurrent, moderate
CPT/HCPCS: 99204

== ENCOUNTER → 2023-09-19 10:21 | Outpatient (BNVA) | payer OTHER, SELFPAY | PROVIDERS: Visit Provider Nurse Practitioner Family | DX: F10.20 Alcohol dependence, uncomplicated (principal); F33.1 Major depressive disorder, recurrent, moderate | CPT/HCPCS: 99202 ==

== ENCOUNTER 2023-12-24 09:07 | Outpatient (AMB) | payer OTHER, SELFPAY ==
[2023-12-24 09:15] VITALS: BP 124/88; PULSE 97; RESP 16; O2SAT 96
--- NOTE | 2023-12-24 09:15 | A.OFFVISCC_ITS ---
Vital Signs 12/24/23 09:15 BP 124/88 Blood Pressure Location Lt brachial Position Sitting Respiration 16 Pulse 97 Pulse Source Pulse Oximeter Pulse Oximetry (%) 96 Oxygen Delivery Method Room Air Intake Visit Reasons: MAT Allergies amoxicillin Allergy (Verified 09/14/23 15:11) Hives Penicillins Allergy (Verified 09/14/23 15:11) Hives Medication List - Last Reconciled 12/24/23 by Maria Luz Pelletier CNP ascorbic acid (vitamin C) 500 mg PO DAILY esomeprazole magnesium 20 mg PO DAILY multivitamin 1 tab PO DAILY naltrexone 50 mg PO DAILY sertraline 50 mg PO DAILY trazodone 50 mg PO BEDTIME PRN HPI HPI MAT: Details: Patient presents for follow up for AUD Started on Sertraline and Trazodone during last visit has been on 25mg of zoloft--would like to increase dose trazodone 50mg working well notices an increase in motivation Drinking --maybe 3 nights per week. Previously 7 nights per week Spending more time outside [facility] Medical History Alcohol use disorder Ulcer Social History Household Members: Significant Other Household Members Other:: boyfriend Housing: House Do you presently have visiting nurse or other home services: No Alcohol intake: current Alcohol intake frequency: 3 or more drinks per day Alcohol type: beer, wine and hard liquor Comment: Refused alarms. Patient Tobacco Use Status: Never used Tobacco Second Hand Smoke Exposure: No Substance Use Type: Marijuana service: No Review of Systems Const Reports as per HPI Physical Exam Vital Signs: Last Vital Signs Pulse 97 12/24/23 09:15 Resp 16 12/24/23 09:15 BP 124/88 12/24/23 09:15 Pulse Ox 96 12/24/23 09:15 Oxygen Delivery Method Room Air 12/24/23 09:15 Const General: cooperative, healthy appearing and well groomed Assessment & Plan Assessment & Plan (1) Alcohol use disorder: Code(s): F10.90 - Alcohol use, unspecified, uncomplicated Category: Medical Plan: * continue naltrexone at current dose --PRN * relapse prevention discussion (2) Major depressive disorder, recurrent, moderate: Code(s): F33.1 - Major depressive disorder, recurrent, moderate Category: Medical Plan: * increase sertraline to 50mg daily * continue trazodone at bedside Medications: Changed From sertraline 25 mg PO DAILY 30 tabs 0RF To sertraline 50 mg PO DAILY
== END 2023-12-24 09:37 | disposition home or self-care (01) ==
PROVIDERS: Visit Provider Nurse Practitioner Psychiatric/Mental Health
DX: F10.90 Alcohol use, unspecified, uncomplicated (principal); F33.1 Major depressive disorder, recurrent, moderate
CPT/HCPCS: 99214

== ENCOUNTER → 2023-12-24 09:07 | Outpatient (BNVA) | payer OTHER, SELFPAY | PROVIDERS: Visit Provider Nurse Practitioner Psychiatric/Mental Health | DX: F10.20 Alcohol dependence, uncomplicated (principal); F33.1 Major depressive disorder, recurrent, moderate; Z79.899 Other long term (current) drug therapy | CPT/HCPCS: 99212 ==

== ENCOUNTER 2024-02-05 09:36 | Outpatient (AMB) | payer OTHER, SELFPAY ==
--- NOTE | 2024-02-05 09:45 | A.OFFVISCC_ITS ---
Intake Visit Reasons: MAT Allergies amoxicillin Allergy (Verified 09/14/23 15:11) Hives Penicillins Allergy (Verified 09/14/23 15:11) Hives HPI HPI MAT: Details: Patient presents for follow up Has been tolerating increase in Sertraline dose No longer waking up anxious, but still having what she refers to as negative thoughts mainly about where she is in her life and where she wants to be shared some challenges in her relationship interested in starting vyvanse for ADHD PFSH Medical History Alcohol use disorder Ulcer Social History Household Members: Significant Other Household Members Other:: boyfriend Housing: House Do you presently have visiting nurse or other home services: No Alcohol intake: current Alcohol intake frequency: 3 or more drinks per day Alcohol type: beer, wine and hard liquor Comment: Refused alarms. Patient Tobacco Use Status: Never used Tobacco Second Hand Smoke Exposure: No Substance Use Type: Marijuana service: No Review of Systems Const Reports as per HPI Physical Exam Const General: cooperative, healthy appearing, anxious and well groomed Assessment & Plan Assessment & Plan (1) Alcohol use disorder: Code(s): F10.90 - Alcohol use, unspecified, uncomplicated Category: Medical Plan: * continue naltrexone PRN * risk reduction discussion (2) Major depressive disorder, recurrent, moderate: Code(s): F33.1 - Major depressive disorder, recurrent, moderate Category: Medical Plan: * increase sertraline to 75mg QD * consider vyvanse at next visit Medications: Changed From sertraline 50 mg (2 x 25 mg) PO DAILY 30 tabs 0RF To sertraline 75 mg (3 x 25 mg) PO DAILY 90 tabs 1RF Refilled trazodone 50 mg PO BEDTIME PRN 30 tabs 3RF sleep
== END 2024-02-05 13:20 | disposition home or self-care (01) ==
PROVIDERS: Visit Provider Nurse Practitioner Psychiatric/Mental Health
DX: F10.90 Alcohol use, unspecified, uncomplicated (principal); F33.1 Major depressive disorder, recurrent, moderate
CPT/HCPCS: 99214

== ENCOUNTER → 2024-02-05 09:36 | Outpatient (BNVA) | payer OTHER, SELFPAY | PROVIDERS: Visit Provider Nurse Practitioner Psychiatric/Mental Health | DX: F10.90 Alcohol use, unspecified, uncomplicated (principal); F33.1 Major depressive disorder, recurrent, moderate; Z51.81 Encounter for therapeutic drug level monitoring | CPT/HCPCS: 99212 ==

== ENCOUNTER 2024-02-27 17:02 | Emergency (ER) | payer OTHER, SELFPAY ==
--- NOTE | ~2024-02-27 | CT_ITS ---
EXAMINATION: CT brain, CT cervical spine and facial bones. CLINICAL INDICATION: Status post fall. COMPARISON: None. TECHNIQUE: 5 mm thin axial and reformatted 2 mm thin sagittal and coronal images of brain were obtained. Subsequently axial 3 minutes thin and reformatted 1.5 thin images of facial bones were obtained. Lastly 3 mm thin and reformatted 2 mm thin sagittal and coronal images of cervical spine were obtained. DLP 870 mGy/cm. This CT examination was performed using dose optimization technique as appropriate, variously including the following: Automated exposure control Adjustment of MA and/or KV according to patient size(this includes techniques or standardized protocols for targeted exams where dose is matched to indication/reason for exam; extremities or head. Use of iterative reconstruction techniques. FINDINGS: Brain: There is no acute intra-axial, extra-axial bleed, masses or midline shift. There is no acute infarction evolution. There is no edema. The sagastume to white matter differentiation is maintained normal. The lateral ventricles are symmetrical in size and configuration without enlargement. Bone windows reveal no calvarial abnormality. Cervical spine: There is mild straightening of cervical lordosis. The vertebral heights and alignment is normal. The disc heights are maintained. There is minimal ventral and posterior spondylosis C6/7 disc level. The craniovertebral junction and the C1-C2 alignment is normal. No visible acute fracture, dislocation or subluxation seen. The prevertebral and paravertebral soft tissues are normal. The airway is widely patent. Maxillofacial bones: There is normal aeration of paranasal sinuses without any mucoperiosteal thickening. The bony sinus olpez, limited of the pressure and the cribriform plate are intact. Bilateral TM joints are symmetric and normal. The mandible is intact. There are bilateral impacted last upper molar teeth. There is no fracture involving the nasal bone. The maxillofacial soft tissues are normal. Bilateral optic globes, optic nerve and periorbital soft tissues are normal. CT/CT cervical spine wo IV con IMPRESSION: No acute intracranial process seen. No acute fracture, dislocation subluxation in cervical spine. Mild spondylosis C6-7 disc level. No maxillofacial, nasal or mandibular fracture. Electronically signed by: Frank Garcia MD 02/27/2024 07:58 PM EDT RP
--- NOTE | ~2024-02-27 | CT_ITS ---
EXAMINATION: CT brain, CT cervical spine and facial bones. CLINICAL INDICATION: Status post fall. COMPARISON: None. TECHNIQUE: 5 mm thin axial and reformatted 2 mm thin sagittal and coronal images of brain were obtained. Subsequently axial 3 minutes thin and reformatted 1.5 thin images of facial bones were obtained. Lastly 3 mm thin and reformatted 2 mm thin sagittal and coronal images of cervical spine were obtained. DLP 870 mGy/cm. This CT examination was performed using dose optimization technique as appropriate, variously including the following: Automated exposure control Adjustment of MA and/or KV according to patient size(this includes techniques or standardized protocols for targeted exams where dose is matched to indication/reason for exam; extremities or head. Use of iterative reconstruction techniques. FINDINGS: Brain: There is no acute intra-axial, extra-axial bleed, masses or midline shift. There is no acute infarction evolution. There is no edema. The sagastume to white matter differentiation is maintained normal. The lateral ventricles are symmetrical in size and configuration without enlargement. Bone windows reveal no calvarial abnormality. Cervical spine: There is mild straightening of cervical lordosis. The vertebral heights and alignment is normal. The disc heights are maintained. There is minimal ventral and posterior spondylosis C6/7 disc level. The craniovertebral junction and the C1-C2 alignment is normal. No visible acute fracture, dislocation or subluxation seen. The prevertebral and paravertebral soft tissues are normal. The airway is widely patent. Maxillofacial bones: There is normal aeration of paranasal sinuses without any mucoperiosteal thickening. The bony sinus lopez, limited of the pressure and the cribriform plate are intact. Bilateral TM joints are symmetric and normal. The mandible is intact. There are bilateral impacted last upper molar teeth. There is no fracture involving the nasal bone. The maxillofacial soft tissues are normal. Bilateral optic globes, optic nerve and periorbital soft tissues are normal. CT/CT facial bones wo IV con IMPRESSION: No acute intracranial process seen. No acute fracture, dislocation subluxation in cervical spine. Mild spondylosis C6-7 disc level. No maxillofacial, nasal or mandibular fracture. Electronically signed by: Frank Garcia MD 02/27/2024 07:58 PM EDT RP
--- NOTE | 2024-02-27 18:12 | ED_ITS ---
HPI - Fall General Chief Complaint: Head Injury Stated Complaint: fell 02/25 facial inj Time Seen by Provider: 02/27/24 20:42 Source: patient Mode of arrival: ambulatory Limitations: no limitations History of Present Illness ED Provider: Jose Armando Escobar PA-C HPI Narrative: 28 yo female who is currently 6 weeks presents to the ER for evaluation of a fall last night. She was sitting on a 4-5 concrete wall, jumped off and her heel got stuck causing her to fall onto her face. she thinks she lost consciousness and does not remember the event. she states she woke up to her friends putting ice on her face. she has had a headache today with photosensitivity. she sustained abrasions to the left side of her face and has swelling on the left cheek. 7/10 left sided facial pain, left sided neck pain and headache. no vomiting, confusion, abdominal pain, vaginal bleeding. sent in from for CT scans. MD complaint: fall Onset (ago): day(s) (1) Fall from: from height (distance) Fall witnessed: yes, by family and yes, by bystander Place fall occurred: street Loss of consciousness: none Prolonged down time: no Context: tripped/slipped Location of injury: head, face and neck Severity: moderate Severity scale (1-10): 7 Quality: aching Associated symptoms (after fall): headache and neck pain Related Data Home Medications ?Medication ?Instructions ?Recorded ?Confirmed ascorbic acid (vitamin C) 500 mg 500 mg PO DAILY 07/26/23 12/24/23 tablet Previous Rx's ?Medication ?Instructions ?Recorded multivitamin 1 tab PO DAILY #30 tabs 05/02/23 esomeprazole magnesium 20 mg 20 mg PO DAILY #90 caps 12/18/23 capsule,delayed release naltrexone 50 mg tablet 50 mg PO DAILY #30 tabs 01/09/24 sertraline 25 mg tablet 75 mg (3 x 25 mg) PO DAILY #90 tabs 02/05/24 trazodone 50 mg tablet 50 mg PO BEDTIME PRN sleep #30 tabs 02/05/24 Allergies Allergy/AdvReac Type Severity Reaction Status Date / Time amoxicillin Allergy Hives Verified 02/27/24 18:15 Penicillins Allergy Hives Verified 02/27/24 18:15 Review of Systems Review of Systems: Yes all other systems are reviewed and are negative PMFSH Past Medical History Medical History Alcohol use disorder Ulcer Social History Social History Household Members: Significant Other Household Members Other:: boyfriend Housing: House Do you presently have visiting nurse or other home services: No Alcohol intake: current Alcohol intake frequency: 3 or more drinks per day Alcohol type: beer, wine and hard liquor Comment: Refused alarms. Patient Tobacco Use Status: Never used Tobacco Second Hand Smoke Exposure: No Substance Use Type: Marijuana Advance Directives: No Advance Directives Information Provided: No Do you have a plan to hurt others: No Plan service: No Physical Exam Vital Signs: Vital Signs: Last Vital Signs Temp 97.8 F 02/27/24 20:49 Pulse 93 02/27/24 20:49 Resp 16 02/27/24 20:49 BP 131/80 02/27/24 20:49 Pulse Ox 100 02/27/24 20:49 O2 Del Method Room Air 02/27/24 20:49 BMI result Body Mass Index 21.3 Appearance: Alert. Oriented X3. No acute distress. Head/face: normocephalic, left cheek with moderate swelling, superficial abrasions under the left eye and on the left lateral cheek. Eyes: Pupils equal, round and reactive to light. EOMI. no pain with EOM. nontender left orbit. ENT: Pharynx normal. No dental trauma. No tonsillar swelling or exudate. No malocclusion. no trismus. Neck: Normal inspection. Neck supple. no midline tenderness or stepoff deformities, left sided paraspinous muscle tenderness and palpable spasm. CVS: Normal heart rate and rhythm. Pulses normal. Respiratory: No respiratory distress. Breath sounds normal. Skin: Skin warm and dry. Normal skin color. Normal skin turgor. No rashes. Extremities: No lower extremity edema. No joint swelling. Superficial abrasions on the bilateral palms Neuro/psych: Oriented X 3. No motor deficit. No sensory deficit. CN II-XII intact. Normal speech and cognition. Medical Decision Making Medical Decision Making MDM Narrative: 28 yo female presents to the ER from urgent care for evaluation of headache, neck pain, facial pain and swelling after she fell face first on cement off of a 4-5 foot wall. ?LOC with some post event confusion. symptoms overall improving however she has ongoing headache and some neck pain, left sided facial pain. no vomiting, lethargy, confusion at this time. event was 12+ hours ago. her neuro exam is reassuring, nonfocal. sent in from her PCP for imaging. we discussed risk vs benefit of radiation in the early stages of , she would like to proceed with imaging. CT scans are reassuring. no acute process. at this time patient is stable for discharge home. concussion precautions. encouraged f/u with PCP and OB Differential Diagnosis Differential Diagnoses: The differential diagnosis associated with the presentation includes concussion, cervical strain, abrasion, facial fracture, orbital fracture Admission/Observation Consideration of admission/observation: Escalation of care including admission/observation considered Independent Interpretation I performed an independent interpretation of an: CT Scan Interpretation: no acute edema or bleed in the head Radiology Impression Discussion of test interpretation with radiology: I have reviewed the radiologist's reading. Radiologist Impression: CT/CT cervical spine wo IV con IMPRESSION: No acute intracranial process seen. No acute fracture, dislocation subluxation in cervical spine. Mild spondylosis C6-7 disc level. No maxillofacial, nasal or mandibular fracture. External Record Review External record reviewed: Prior outpatient labs and Prior outpatient radiology Prescription Management I considered prescription management with: Pain Medication Chronic Conditions Patient?s care impacted by: Other () Critical Care Time Critical Care Time Critical Care Time: No Discharge Plan Discharge Clinical Impression: Contusion of face, Abrasion of face, Cervical muscle strain Patient Disposition: Home, Self-Care Instructions: Abrasion (ED), Facial Contusion (ED) Additional Instructions: CT scans did not show any acute injuries Use ice to the area to help with pain and swelling Rest and drink plenty of fluids. avoid prolonged screen time take tylenol as needed for pain follow up with your doctor EXAMINATION: CT brain, CT cervical spine and facial bones. CLINICAL INDICATION: Status post fall. COMPARISON: None. TECHNIQUE: 5 mm thin axial and reformatted 2 mm thin sagittal and coronal images of brain were obtained. Subsequently axial 3 minutes thin and reformatted 1.5 thin images of facial bones were obtained. Lastly 3 mm thin and reformatted 2 mm thin sagittal and coronal images of cervical spine were obtained. DLP 870 mGy/cm. This CT examination was performed using dose optimization technique as appropriate, variously including the following: Automated exposure control Adjustment of MA and/or KV according to patient size(this includes techniques or standardized protocols for targeted exams where dose is matched to indication/reason for exam; extremities or head. Use of iterative reconstruction techniques. FINDINGS: Brain: There is no acute intra-axial, extra-axial bleed, masses or midline shift. There is no acute infarction evolution. There is no edema. The sagastume to white matter differentiation is maintained normal. The lateral ventricles are symmetrical in size and configuration without enlargement. Bone windows reveal no calvarial abnormality. Cervical spine: There is mild straightening of cervical lordosis. The vertebral heights and alignment is normal. The disc heights are maintained. There is minimal ventral and posterior spondylosis C6/7 disc level. The craniovertebral junction and the C1-C2 alignment is normal. No visible acute fracture, dislocation or subluxation seen. The prevertebral and paravertebral soft tissues are normal. The airway is widely patent. Maxillofacial bones: There is normal aeration of paranasal sinuses without any mucoperiosteal thickening. The bony sinus lopez, limited of the pressure and the cribriform plate are intact. Bilateral TM joints are symmetric and normal. The mandible is intact. There are bilateral impacted last upper molar teeth. There is no fracture involving the nasal bone. The maxillofacial soft tissues are normal. Bilateral optic globes, optic nerve and periorbital soft tissues are normal. CT/CT cervical spine wo IV con IMPRESSION: No acute intracranial process seen. No acute fracture, dislocation subluxation in cervical spine. Mild spondylosis C6-7 disc level. No maxillofacial, nasal or mandibular fracture. Prescriptions: No Action esomeprazole magnesium 20 mg capsule,delayed release(DR/EC) 20 mg PO DAILY Qty: 90 1RF naltrexone 50 mg tablet 50 mg PO DAILY Qty: 30 0RF ascorbic acid (vitamin C) 500 mg Tablet 500 mg PO DAILY multivitamin Tablet 1 tab PO DAILY Qty: 30 0RF trazodone 50 mg tablet 50 mg PO BEDTIME PRN (Reason: sleep) Qty: 30 3RF sertraline 25 mg tablet 75 mg PO DAILY Qty: 90 1RF Interventions: ED Discharge Assessment Last Done: 02/27/24 20:49 Discharge Date/Time: 02/27/24 20:52 Print Language: Andorran
[2024-02-27 18:13] VITALS: BP 123/73; PULSE 114; RESP 16; TEMP 36.7; O2SAT 100; BMI 21.3
[2024-02-27 20:43] VITALS: BP 131/80; PULSE 93; RESP 16; TEMP 36.6; O2SAT 100
[2024-02-27 20:49] VITALS: BP 131/80; PULSE 93; RESP 16; TEMP 36.6; O2SAT 100
== END 2024-02-27 20:52 | disposition home or self-care (01) ==
LOC: HO.ED 20:53
PROVIDERS: Emergency Provider Emergency Medicine
DX: S00.81XA Abrasion of other part of head, initial encounter (principal); S16.1XXA Strain of muscle, fascia and tendon at neck level, initial encounter; R51.9 Headache, unspecified; M54.2 Cervicalgia; W19.XXXA Unspecified fall, initial encounter; Y93.89 Activity, other specified; Y92.89 Other specified places as the place of occurrence of the external cause; Y99.8 Other external cause status
CPT/HCPCS: 70450; 70486; 72125; 99282; 99284

== ENCOUNTER 2024-03-04 09:46 | Outpatient (AMB) | payer OTHER, SELFPAY ==
--- NOTE | 2024-03-04 09:54 | A.OFFVISCC_ITS ---
Intake Visit Reasons: MAT Allergies amoxicillin Allergy (Verified 02/27/24 18:15) Hives Penicillins Allergy (Verified 02/27/24 18:15) Hives HPI HPI MAT: Details: Patient presents for follow up [facility] Reports she has been drinking more over the last month has been hiding alcohol intake from her boyfriend Was in the ED over the weekend after falling in a parking garage Has noted improvement in depressive sx with increase in sertraline PFSH Medical History Alcohol use disorder Ulcer Social History Household Members: Significant Other Household Members Other:: boyfriend Housing: House Do you presently have visiting nurse or other home services: No Alcohol intake: current Alcohol intake frequency: 3 or more drinks per day Alcohol type: beer, wine and hard liquor Comment: Refused alarms. Patient Tobacco Use Status: Never used Tobacco Second Hand Smoke Exposure: No Substance Use Type: Marijuana service: No Review of Systems Const Reports as per HPI and Reports no additional complaints Physical Exam Const Other: swelling to left side of face General: cooperative, anxious and well groomed Nutritional Appearance: average body habitus Orientation/consciousness: patient oriented x3 Limitations: no limitations Neuro General: patient oriented x3 Assessment & Plan Assessment & Plan (1) Alcohol use disorder: Code(s): F10.90 - Alcohol use, unspecified, uncomplicated Category: Medical Plan: * continue naltrexone * risk reduction discussion (2) Major depressive disorder, recurrent, moderate: Code(s): F33.1 - Major depressive disorder, recurrent, moderate Category: Medical Plan: * continue sertraline at current dose * follow up 4 weeks
== END 2024-03-04 10:40 | disposition home or self-care (01) ==
PROVIDERS: Visit Provider Nurse Practitioner Psychiatric/Mental Health
DX: F10.90 Alcohol use, unspecified, uncomplicated (principal); F33.1 Major depressive disorder, recurrent, moderate
CPT/HCPCS: 99214

== ENCOUNTER → 2024-03-04 09:46 | Outpatient (BNVA) | payer OTHER, SELFPAY | PROVIDERS: Visit Provider Nurse Practitioner Psychiatric/Mental Health | DX: O99.310 Alcohol use complicating pregnancy, unspecified trimester (principal); O99.340 Other mental disorders complicating pregnancy, unspecified trimester; F33.1 Major depressive disorder, recurrent, moderate | CPT/HCPCS: 99212 ==

== ENCOUNTER 2024-04-01 09:26 | Outpatient (AMB) | payer OTHER, SELFPAY ==
--- NOTE | 2024-04-01 09:33 | A.OFFVISCC_ITS ---
Intake Visit Reasons: MAT Allergies amoxicillin Allergy (Verified 02/27/24 18:15) Hives Penicillins Allergy (Verified 02/27/24 18:15) Hives HPI HPI MAT: Details: Patient presents for follow up Reports several weeks of not taking medications following procedure Depressive sx Restarted all medications recently --does note improvement in mood since restarting Revisited therapy --will seek out Requesting to restart vyvanse. [facility] to [facility] Discussed alcohol use over the last month Reports a couple of days increase following procedure Drinking 4 days per week in the evening --reflected on this increase. Some minimizing by patient Review of Systems Const Reports as per HPI Physical Exam Const General: cooperative, healthy appearing and well groomed Nutritional Appearance: average body habitus Assessment & Plan Assessment & Plan (1) Alcohol use disorder: Code(s): F10.90 - Alcohol use, unspecified, uncomplicated Category: Medical Plan: * risk reduction discussion * follow up 4 weeks * vyvanse 10mg QD Orders: Orders Comprehensive Met. Panel 04/01/24 F10.90 - Alcohol use, unspecified, uncomplicated Medications: New lisdexamfetamine (Vyvanse) Partial Fill upon patient request. 10 mg PO DAILY 30 caps 0RF Refilled sertraline 75 mg (3 x 25 mg) PO DAILY 90 tabs 3RF PFSH Medical History Alcohol use disorder Ulcer Social History Household Members: Significant Other Household Members Other:: boyfriend Housing: House Do you presently have visiting nurse or other home services: No Alcohol intake: current Alcohol intake frequency: 3 or more drinks per day Alcohol type: beer, wine and hard liquor Comment: Refused alarms. Patient Tobacco Use Status: Never used Tobacco Second Hand Smoke Exposure: No Substance Use Type: Marijuana service: No
== END 2024-04-01 10:02 | disposition home or self-care (01) ==
LOC: HO.HCC 09:27
PROVIDERS: Visit Provider Nurse Practitioner Psychiatric/Mental Health
DX: F10.90 Alcohol use, unspecified, uncomplicated (principal)
CPT/HCPCS: 99214

== ENCOUNTER → 2024-04-01 09:26 | Outpatient (BNVA) | payer OTHER, SELFPAY | PROVIDERS: Visit Provider Nurse Practitioner Psychiatric/Mental Health | DX: F10.90 Alcohol use, unspecified, uncomplicated (principal) | CPT/HCPCS: 99212 ==

== ENCOUNTER 2024-05-25 14:41 | Outpatient (AMB) | payer OTHER, SELFPAY ==
--- NOTE | 2024-05-25 15:32 | MHC.OFFWIV ---
Intake Vital Signs 05/25/24 15:37 Height 5 ft 3 in Weight 136 lb BMI 24.1 BP 110/66 Blood Pressure Location Lt brachial Position Sitting Pulse 102 H Pulse Source Pulse Oximeter Temp 98.6 F Temp Source Oral Pulse Oximetry (%) 98 Oxygen Delivery Method Room Air Intake Visit Reasons: EP-cough, headaches Intake Note: Patient here for deep cough, chest tightness that started last night. Patient Tobacco Use Status: Never used Tobacco Allergies amoxicillin Allergy (Verified 05/25/24 15:39) Hives Penicillins Allergy (Verified 05/25/24 15:39) Hives Do you need a note to return to daycare/school/sports/work: No HPI EP-cough, headaches HPI Details This note is constructed using voice recognition software. While every effort has been made to ensure accuracy, food storeroom clerk errors may have been included. The patient is a 29 year old female who presents to the clinic today with cough and sinus headache for the past week. She denies fever, chills, shortness of breath. She reports the cough to be dry, worse when she lays down at night. She does report some mild body aches for the past week. [facility] Medical History Alcohol use disorder Ulcer Social History Household Members: Significant Other Household Members Other:: boyfriend Housing: House Do you presently have visiting nurse or other home services: No Alcohol intake: current Alcohol intake frequency: 3 or more drinks per day Alcohol type: beer, wine and hard liquor Comment: Refused alarms. Patient Tobacco Use Status: Never used Tobacco Second Hand Smoke Exposure: No Substance Use Type: Marijuana service: No Review of Systems Const All systems reviewed & are unremarkable except as noted in HPI and below Physical Exam Vital Signs: Last Vital Signs Temp 98.6 F 05/25/24 15:37 Pulse 102 H 05/25/24 15:37 BP 110/66 05/25/24 15:37 Pulse Ox 98 05/25/24 15:37 Oxygen Delivery Method Room Air 05/25/24 15:37 BMI result Body Mass Index 24.1 Const General: cooperative, healthy appearing, comfortable and no acute distress Orientation/consciousness: patient oriented x3 Limitations: no limitations HEENT Head: Yes normal to inspection Ears: hearing grossly normal bilaterally, external ears normal and TM abnormal retracted General nose exam: Normal external nose present, No nasal discharge present and Abnormal mucous membranes and turbinates present boggy and pale Face and sinus: Yes normal facial exam and Yes sinuses nontender Mouth: Normal oral and palatal mucosa present and moist mucous membranes Throat: Yes tonsils normal, Yes uvula midline, Yes posterior oropharynx abnormal (Erythema), Yes postnasal drainage and Yes cobblestoning Eyes General: appearance normal, both eyes and all related structures Neck Neck: Yes normal visual inspection Resp Effort & Inspection: normal respiratory effort, able to speak in complete sentences, Actively coughing, no respiratory distress, not tachypneic, no tripod positioning and no use of accessory muscles Auscultation: clear to auscultation bilaterally Cardio Rate: regular rate Rhythm: regular rhythm Heart sounds: normal S1 and S2 Skin General skin exam: no rashes or lesions noted Neuro General: patient oriented x3 Extrem General: Yes normal to inspection and Yes no clubbing, cyanosis or edema Assessment & Plan Assessment & Plan (1) Allergic rhinitis: Code(s): J30.9 - Allergic rhinitis, unspecified Qualifiers: Allergic rhinitis trigger: unspecified Allergic rhinitis seasonality: unspecified Qualified Code(s): J30.9 - Allergic rhinitis, unspecified Plan: Supportive measures encouraged and reviewed. Advised patient to try a Flonase nasal spray and second-generation antihistamine such as Zyrtec, Claritin, Naila or similar. Advised consideration of sinus rinse if needed. Advised patient to follow up with primary care provider with worsening or failure to resolve. Viral swab obtained to rule out Covid, Influenza, and RSV based on symptoms. Advised mask wearing while symptomatic and quarantine per current CDC guidelines. Reviewed at home support methods including hydration, humidification, vix vapor rub, sinus rinse, and otc treatment options. Discussed treatment with antiviral therapy for covid with paxlovid and with Tamiflu for influenza, including appropriate use and side effects, and need to start medication within 5 day of symptom onset, preferably within 48 hours of symptom onset. Patient is outside of treatment window for antiviral therapy. Benzonatate sent for symptomatic management of cough. Advised follow up with worsening symptoms such as dyspnea at rest, which would require emergent evaluation. Plan See above for full details and plan. Orders: Orders SARS-CoV2/FLU/RSV Today J06.9 - Acute upper respiratory infection, unspecified Medications: New benzonatate 100 mg PO TID 5 days PRN 15 caps 0RF Cough Coding Level of Care Code Est Pt Level 3 (38055) Diagnoses Allergic rhinitis, unspecified seasonality, unspecified trigger J30.9 Allergic rhinitis trigger: unspecified Allergic rhinitis seasonality: unspecified
[2024-05-25 15:37] VITALS: BP 110/66; PULSE 102; TEMP 37; O2SAT 98; BMI 24.1
== END 2024-05-25 16:11 | disposition home or self-care (01) ==
PROVIDERS: Visit Provider Registered Nurse
DX: J30.9 Allergic rhinitis, unspecified (principal)

== ENCOUNTER 2024-05-25 14:41 | Outpatient (REF) | payer OTHER, SELFPAY ==
[2024-05-26 11:58] LABS: Influenza A PCR POSITIVE (Negative); Influenza B PCR NEGATIVE (Negative); Resp Syncy Virus RNA Qual PCR NEGATIVE (Negative); SARS COV2 PCR INHOUSE NEGATIVE (Negative)
== END 2024-05-25 14:42 | disposition home or self-care (01) ==
LOC: HO.LAB 14:41
PROVIDERS: Visit Provider Registered Nurse
DX: J30.9 Allergic rhinitis, unspecified (principal); J06.9 Acute upper respiratory infection, unspecified
CPT/HCPCS: 0241U; 99212

== ENCOUNTER 2025-05-12 08:40 | Emergency (ER) | payer SELFPAY ==
[2025-05-12 08:48] VITALS: BP 166/11; PULSE 140; RESP 20; TEMP 36.6; O2SAT 97; BMI 22.1
--- NOTE | 2025-05-12 09:39 | ED_ITS ---
HPI - Nausea/Vomiting/Diarrhea General Chief complaint: Nausea/Vomiting/Diarrhea Stated complaint: vomitting, cant keep anything down Time Seen by Provider: 05/12/25 09:39 Source: patient Mode of arrival: ambulatory Limitations: no limitations History of Present Illness ED Provider: Jose Armando Escobar PA-C HPI Narrative: 30-year-old female with history of alcohol abuse, history of alcohol ketosis and withdrawal, history of recurrent anion gap metabolic acidosis, RTA who presents to the ER for evaluation of decreased PO intake, recurrent vomiting and inability to tolerate PO for the last 3 days. She reports she drank 2 alcoholic selzters on Saturday and woke up Saturday feeling unwell with nausea nad vomiting. She felt better Saturday but had return of symptoms and unable to eat soup with resulting vomiting. She had ongoing nausea today and came to the ER for further evaluation. She denies any associated abdominal pain, urinary symptoms or chance of . She reports occasional marijuana use but none in the last several days. Denies history of cyclical vomiting syndrome. No chest pain, SOB, fever, chills. She is worried about dehydation and electrolyte abnormalities. MD elicited complaint: nausea and vomiting Pertinent past history: anorexia and alcohol abuse Onset (ago): day(s) Description of vomiting: food contents and watery Associated nausea: Yes Associated abdominal pain: No Location of pain: none Exacerbating factors: eating Relieving factors: none Associated symptoms: loss of appetite, malaise, nausea/vomiting and weakness Related Data Home Medications ?Medication ?Instructions ?Recorded ?Confirmed ascorbic acid (vitamin C) 500 mg 500 mg PO DAILY 07/2512/24/23 tablet norethindrone 1 mg-ethinyl 1 tab PO DAILY 04/01/2411/17 estradiol 20 mcg (21)-iron 75 mg (7) tablet (06/15 (28)) Previous Rx's ?Medication ?Instructions ?Recorded multivitamin 1 tab PO DAILY #30 tabs 12/16 esomeprazole magnesium 20 mg 20 mg PO DAILY #90 caps 0 12/18/23 capsule,delayed release naltrexone 50 mg tablet 50 mg PO DAILY #30 tabs 12/25 10/17 trazodone 50 mg tablet 50 mg PO BEDTIME PRN sleep # 30 tabs 02/05/24 lisdexamfetamine 10 mg capsule 10 mg PO DAILY #30 caps 04/01/24 (Vyvanse) sertraline 25 mg tablet 75 mg (3 x 25 mg) PO DAILY # 90 tabs 04/01/24 benzonatate 100 mg capsule 100 mg PO TID PRN Cough 5 d ays #15 05/25/24 caps ondansetron 4 mg disintegrating 4 mg PO Q8H PRN nausea and 05/12/25 tablet vomiting #7 tabs Allergies Allergy/AdvReac Type Severity Reaction Status Date / Time amoxicillin Allergy Hives Verified 05/12/25 08:51 Penicillins Allergy Hives Verified 05/12/25 08:51 Review of Systems 2 Review of Systems: Yes all other systems are reviewed and are negative Gastrointestinal: Gastrointestinal: Reports nausea PMFSH Past Medical History Medical History Alcohol use disorder Ulcer Social History Social History Household Members: Significant Other Household Members Other:: boyfriend Housing: House Do you presently have visiting nurse or other home services: No Alcohol intake: current Alcohol intake frequency: 3 or more drinks per day Alcohol type: beer, wine and hard liquor Comment: Refused alarms. Patient Tobacco Use Status: Never used Tobacco Second Hand Smoke Exposure: No Substance Use Type: Marijuana Advance Directives: No Advance Directives Information Provided: Yes service: No Physical Exam 2 Exam: Exam: Appearance: Alert. Oriented X3. No acute distress. Head: normocephalic, atraumatic. Eyes: Pupils equal, round and reactive to light. ENT: Pharynx normal. No tonsillar swelling or exudate. Neck: Normal inspection. Neck supple. CVS: tachycardic, heart rate 130s, regular rhythm. Pulses normal. Respiratory: No respiratory distress. Breath sounds normal. Abdomen: Soft and nontender. +BS x4 Skin: Skin warm and dry. Normal skin color. Normal skin turgor. No rashes. Extremities: No lower extremity edema. No joint swelling. Neuro/psych: Oriented X 3. No motor deficit. No sensory deficit. CN II-XII intact. mild hand tremor. Normal speech and cognition. Vital Signs: Vital Signs: Last Vital Signs Temp 98.3 F 05/12/25 18:05 Pulse 110 H 05/12/25 18:05 Resp 18 05/12/25 18:05 BP 152/94 H 05/12/25 18:05 Pulse Ox 99 05/12/25 18:05 O2 Del Method Room Air 05/12/25 18:05 BMI result Body Mass Index 22.1 Course Reevaluation(s) Reevaluation #1: Patient received in sign-out at change of shift pending repeat labs and re- evaluation. The patient's carbon dioxide has improved to 19. She is able to tolerate p.o. at this time. At this time she is stable for discharge. She reports that she has been noncompliant with her omeprazole and I encouraged her to continue taking this daily. Time: 18:13 Medications Administered Discontinued Medications Generic Name Dose Route Start Last Admin Trade Name Freq PRN Reason Stop Dose Admin Al Hydroxide/Mg Hydroxide 30 ml 05/12/25 16:57 05/12/25 17:17 Magnesium Hydrox/Alum Hydrox 30 Ml Oral.Susp PO 05/12/25 16:58 30 ml ONCE ONE Administration Belladonna Alkaloids/Phenobarbital 10 ml 05/12/25 16:57 05/12/25 17:17 Phenobarb/Hyoscy/Atropine/Scop 10 Ml Elixir PO 05/12/25 16:58 10 ml ONCE ONE Administration Lactated Ringer's 1,000 mls @ 999 mls/hr 05/12/25 09:45 05/12/25 12:08 Lr IV 05/12/25 10:45 Infused .Q1H1M SURYA Infusion Lactated Ringer's 1,000 mls @ 999 mls/hr 05/12/25 11:15 05/12/25 13:20 Lr IV 05/12/25 12:15 Infused .Q1H1M SURYA Infusion Lactated Ringer's 1,000 mls @ 999 mls/hr 05/12/25 13:00 05/12/25 14:50 Lr IV 05/12/25 14:00 Infused .Q1H1M SURYA Infusion Lidocaine HCl 15 ml 05/12/25 16:57 05/12/25 17:17 Lidocaine Hcl Viscous 2 % 15 Ml Solution MUCOUS MEM 05/12/25 16:58 15 ml ONCE ONE Administration Ondansetron HCl 4 mg 05/12/25 09:39 05/12/25 10:25 Ondansetron Hcl 4 Mg/2 Ml Vial IVPUSH 05/12/25 09:40 4 mg ONCE ONE Administration Ondansetron HCl 4 mg 05/12/25 16:57 05/12/25 17:17 Ondansetron Hcl 4 Mg/2 Ml Vial IVPUSH 05/12/25 16:58 4 mg ONCE ONE Administration Potassium Chloride 40 meq 05/12/25 15:01 05/12/25 15:18 Potassium Chloride Er 20 Meq Tab.Er.Prt PO 05/12/25 15:02 40 meq ONCE ONE Administration Medical Decision Making Medical Decision Making [facility] Narrative: 30 yo female with history of etoh use, etoh ketosis, possible RTA (denies this diagnosis, denies seeing a strategic communications manager) who presents to the ER for evaluation of nausea, vomiting, decreased p.o. intake for the last 3 days after drinking a couple alcoholic beverages on Saturday. She reports she frequently gets ?electrolyte imbalances? and needs IV fluids when this happens to her. She reports when she stops eating for short period of time it is hard for her to be able to tolerate p.o. after that. She is tachycardic to the 140s on arrival, slightly tremulous. Reports her last alcoholic drink was on Saturday, consuming too alcoholic seltzers 4.5% ABV. says she used to have a problem with alcohol but not anymore. denies withdrawal symptoms. IVF infusing, Zofran given. Labs showing mild leukocytosis, likely due to vomiting and reactive. There is no evidence of infection at this time, she also has an elevated anion gap and low bicarb consistent with a metabolic acidosis. She has transaminitis with normal bilirubin and alk-phos, most consistent with alcohol use. Low suspicion for obstructive biliary disease. Given her acidosis by ABG and lactic acid were checked, her pH is compensated and her lactic acid is normal. She has gotten 2 L of fluid and is feeling better. Heart rates improved. UA with large ketones. 1500 - re-evaluated. feeling better after completion of 2 L IVF. starting PO trial now. repeating labs to ensure improvement. does not seem to have evidence of alcohol withdrawal 1800 - labs still pending. patient re-evaluated and she is now reporting recurrent nausea and worsening reflux after drinking water and domenico sarath. will give another dose of zofran and GI cocktail. may require admission Differential Diagnosis Differential Diagnoses: The differential diagnosis associated with the presentation includes dehydration, cyclical vomiting syndrome, alcoholic gastritis, starvation ketosis, alcoholic ketosis, RTA, Admission/Observation Consideration of admission/observation: Escalation of care including admission/observation considered Lab Data MDM Lab Attestation statement: I reviewed the patient's lab results. mild leukocytosis, high anion gap, low bicarbonate, elevated calcium, transaminitis with normal bilirubin, normal lactic acid 05/12/25 10:21 05/12/25 16:07 Labs: Lab Results 05/12/25 05/12/25 05/12/25 Range/Units 10:21 11:19 11:22 WBC 12.0 H (4.8-10.8) X10*3/uL RBC 4.53 D (4.20-5.50) X10*6/uL Hgb 14.9 D (12.0-16.0) g/dl Hct 42.9 D (37.0-47.0) % MCV 94.7 (80.0-98.0) fL MCH 32.9 (27.0-33.0) pg MCHC 34.7 (31.0-35.0) g/dl RDW 13.4 (11.0-16.0) % Plt Count 227 (160-400) X10*3/uL MPV 10.0 (9.4-12.3) fL Immature Gran % (Auto) 0.5 H (0.0-0.4) % Neut % (Auto) 87.4 H (45-73) % Lymph % (Auto) 3.3 L (20-40) % Gates % (Auto) 8.6 (2-11) % Eos % (Auto) 0.0 (0-4) % Baso % (Auto) 0.2 (0-2) % Lymph # (Auto) 0.4 L (1.2-4.9) X10*3/uL Gates # (Auto) 1.0 (0.1-1.2) X10*3/uL Eos # (Auto) 0.0 (0.0-0.4) X10*3/uL Baso # (Auto) 0.0 (0.0-0.2) X10*3/uL Abs Immat Gran (auto) 0.06 H (0.00-0.03) X10*3/uL Absolute Neuts (auto) 10.5 H (2.0-8.3) x10*3/uL Absolute Nucleated RBC 0.000 (0.0-0.012) X10*3/uL Nucleated RBC % (auto) 0.0 (0.0-0.2) /100WBC VBG pH 7.38 (7.32-7.43) VBG pCO2 19 mmHg VBG pO2 208 mmHg VBG HCO3 11 L (22-26) mmol/L VBG O2 Saturation 99.0 % VBG Base Excess -10.8 mmol/L Sodium 137 (135-145) mmol/L Potassium 3.7 (3.3-5.1) mmol/L Chloride 100 (96-108) mmol/L Carbon Dioxide 13 L (22-29) mmol/L Anion Gap 28 H (12-20) BUN 16 (9-16) mg/dL Creatinine 1.10 (0.5-1.4) mg/dL Estim Creat Clear Calc 61.8 Estimated GFR 58 Random Glucose 117 H (60-115) mg/dL Lactic Acid 1.0 (0.5-2.0) mmol/L Calcium 10.5 H D (8.4-10.2) mg/dL Total Bilirubin 1.0 (0.0-1.0) mg/dL Direct Bilirubin 0.4 (0.0-0.5) mg/dL AST 160 H (5-31) U/L ALT 132 H (0-31) U/L Alkaline Phosphatase 116 (39-117) U/L Total Protein 9.5 H (6.5-8.0) g/dL Albumin 6.2 H (3.5-5.0) g/dL Beta HCG, Quant < 2 mIU/mL Urine Color Urine Appearance Urine pH (5.0-9.0) Ur Specific [place] (1.005-1.025) Urine Protein (Neg-Trace) mg/dL Urine Glucose (UA) (Negative) mg/dL Urine Ketones (Negative) mg/dL Urine Blood (Negative) Urine Nitrite (Negative) Ur Leukocyte Esterase (Negative) Urine RBC (0-2) /HPF Urine WBC (0-5) /HPF Ur Squamous Epith Cells (0-2) /HPF Urine Bacteria (None Seen) Hyaline Casts (0-2) /LPF Urine Opiates Screen (Not Detect) Ur Buprenorphine Scrn (Not Detect) ng/mL Ur Oxycodone Screen (Not Detect) ng/mL Urine Methadone Screen (Not Detect) ng/mL Urine Fentanyl Screen (Not Detect) Ur Barbiturates Screen (Not Detect) Ur Phencyclidine Scrn (Not Detect) Ur Amphetamines Screen (Not Detect) U Benzodiazepines Scrn (Not Detect) Urine Cocaine Screen (Not Detect) U Marijuana (THC) Screen (Not Detect) Ethyl Alcohol < 10 mg/dL 05/12/25 05/12/25 Range/Units 13:23 16:07 WBC (4.8-10.8) X10*3/uL RBC (4.20-5.50) X10*6/uL Hgb (12.0-16.0) g/dl Hct (37.0-47.0) % MCV (80.0-98.0) fL MCH (27.0-33.0) pg MCHC (31.0-35.0) g/dl RDW (11.0-16.0) % Plt Count (160-400) X10*3/uL MPV (9.4-12.3) fL Immature Gran % (Auto) (0.0-0.4) % Neut % (Auto) (45-73) % Lymph % (Auto) (20-40) % Gates % (Auto) (2-11) % Eos % (Auto) (0-4) % Baso % (Auto) (0-2) % Lymph # (Auto) (1.2-4.9) X10*3/uL Gates # (Auto) (0.1-1.2) X10*3/uL Eos # (Auto) (0.0-0.4) X10*3/uL Baso # (Auto) (0.0-0.2) X10*3/uL Abs Immat Gran (auto) (0.00-0.03) X10*3/uL Absolute Neuts (auto) (2.0-8.3) x10*3/uL Absolute Nucleated RBC (0.0-0.012) X10*3/uL Nucleated RBC % (auto) (0.0-0.2) /100WBC VBG pH (7.32-7.43) VBG pCO2 mmHg VBG pO2 mmHg VBG HCO3 (22-26) mmol/L VBG O2 Saturation % VBG Base Excess mmol/L Sodium 136 (135-145) mmol/L Potassium 3.6 (3.3-5.1) mmol/L Chloride 102 (96-108) mmol/L Carbon Dioxide 19 L (22-29) mmol/L Anion Gap 19 (12-20) BUN 13 (9-16) mg/dL Creatinine 0.67 (0.5-1.4) mg/dL Estim Creat Clear Calc 101.5 Estimated GFR > 60 Random Glucose 99 (60-115) mg/dL Lactic Acid (0.5-2.0) mmol/L Calcium 9.2 D (8.4-10.2) mg/dL Total Bilirubin 1.0 (0.0-1.0) mg/dL Direct Bilirubin (0.0-0.5) mg/dL AST 107 H (5-31) U/L ALT 83 H (0-31) U/L Alkaline Phosphatase 79 (39-117) U/L Total Protein 6.7 (6.5-8.0) g/dL Albumin 4.6 (3.5-5.0) g/dL Beta HCG, Quant mIU/mL Urine Color Dark Yellow Urine Appearance Cloudy Urine pH 6.0 (5.0-9.0) Ur Specific [place] >= 1.030 H (1.005-1.025) Urine Protein 300 (3+) H (Neg-Trace) mg/dL Urine Glucose (UA) Negative (Negative) mg/dL Urine Ketones >=160 (Negative) mg/dL Urine Blood Small (1+) H (Negative) Urine Nitrite Negative (Negative) Ur Leukocyte Esterase Negative (Negative) Urine RBC 0-2 (0-2) /HPF Urine WBC 0-5 (0-5) /HPF Ur Squamous Epith Cells 6-10 (0-2) /HPF Urine Bacteria 1+ (None Seen) Hyaline Casts 3-5 (0-2) /LPF Urine Opiates Screen Not Detected (Not Detect) Ur Buprenorphine Scrn Not Detected (Not Detect) ng/mL Ur Oxycodone Screen Not Detected (Not Detect) ng/mL Urine Methadone Screen Not Detected (Not Detect) ng/mL Urine Fentanyl Screen Not Detected (Not Detect) Ur Barbiturates Screen Not Detected (Not Detect) Ur Phencyclidine Scrn Not Detected (Not Detect) Ur Amphetamines Screen Not Detected (Not Detect) U Benzodiazepines Scrn Not Detected (Not Detect) Urine Cocaine Screen Not Detected (Not Detect) U Marijuana (THC) Screen POSITIVE H (Not Detect) Ethyl Alcohol mg/dL ABG Data Attestation ABG: I personally reviewed and interpreted this ABG as follows: Interpretation: compensated metabolic acidosis External Record Review External record reviewed: Inpatient record, Outpatient record, Prior outpatient labs and Prior outpatient radiology Prescription Management I considered prescription management with: Other (antiemetic, bicarb) Chronic Conditions Patient?s care impacted by: Other (etoh use, RTA?) Discharge Plan Discharge Clinical Impression: Transaminitis, Dehydration Instructions: Dehydration (DC), Transaminitis (ED) Additional Instructions: your labs showed improvement after IV fluids your labs showed acidosis and elevated liver enzymes it is important that you stay away from all alcohol completely drink plenty of fluids. slowly advance your diet as tolerated take the prescribed nausea medication as prescribed recommend following up with gastroenterology and nephrology for further evaluation of why this keeps recurring - call for appointments follow up with your doctor If you develop new or worsening symptoms call 911 or come back to the ER for further evaluation. Prescriptions: New ondansetron 4 mg tablet,disintegrating 4 mg PO Q8H PRN (Reason: nausea and vomiting) Qty: 7 0RF No Action esomeprazole magnesium 20 mg capsule,delayed release(DR/EC) 20 mg PO DAILY Qty: 90 1RF naltrexone 50 mg tablet 50 mg PO DAILY Qty: 30 0RF ascorbic acid (vitamin C) 500 mg Tablet 500 mg PO DAILY multivitamin Tablet 1 tab PO DAILY Qty: 30 0RF trazodone 50 mg tablet 50 mg PO BEDTIME PRN (Reason: sleep) Qty: 30 3RF norethindrone-e.estradiol-iron [Junel FE 06/15 (28)] 1 mg-20 mcg (21)/75 mg (7) tablet 1 tab PO DAILY sertraline 25 mg tablet 75 mg PO DAILY Qty: 90 3RF lisdexamfetamine [Vyvanse] 10 mg capsule 10 mg PO DAILY Qty: 30 0RF Rx Instructions: Partial Fill upon patient request. benzonatate 100 mg capsule 100 mg PO TID PRN (Reason: Cough) 5 Days Qty: 15 0RF Referrals: [facility] [Provider Group, Nephrology] Referral Note: recurrent acidosis, ?RTA [facility] [Provider Group, Gastroenterology] Referral Note: vomiting resulting in recurrent acidosis, transaminitis Print Language: Mauritanian
--- OUTSIDE RECORDS SUMMARY | 2025-05-12 09:55 | XMS_ITS | Encounter Summary ---
Author Organization [facility] Address [address] [place] [id number] Phone Care Team Providers Care Scheduling Clerk Name Role Phone Cira Schroeder DO Primary Care Provider Unavaila ble Encounter Details Date Type Department Care Team (Late st Contact Info) Description 08/03/2011 Conversion Encounter [facility] [address] [facility] [place] [id number] Social History Tobacco Use Types Packs/Day Years Used Date Smoking Tobacco: Never Comments:Never Smoker Comments Unknown Sex and Gender Information Value Date Recorded Sex Assigned at Not on file Legal Sex Female 6:36 PM EDT Gender Identity Not on file Sexual Orientation Not on file documented as of this encounter Plan of Treatment Not on file documented as of this encounter Visit Diagnoses Not on filedocumented in this encounter Care Teams Scheduling Clerk Relationship Specialty Start Date End Date Cira Schroeder DO PCP - General 10/02/17 documented as of this encounter
--- OUTSIDE RECORDS SUMMARY | 2025-05-12 09:55 | XMS_ITS | Clinical Summary ---
Author Organization [facility] Prior to 10/24/24 Address [address] [place] [address] Care Team Providers Care Ase Master Mechanic Name Role Phone Unavailable Primary Care Provider Unavailabl e Allergies Active Allergy Reactions Criticality Noted Date Comments Amoxicillin 12/09/2020 Medications Medication Sig Dispensed Refills Start Date End Date Status ondansetron (ZOFRAN-ODT) 4 MG disintegrating tablet Take 1 tablet (4 mg total) by mouth 3 (three) times a day as needed for nausea. 12 tablet 0 08/10/2021 Active sucralfate (Carafate) 1 GM/10ML suspension Take 10 mL (1 g total) by mouth 4 (four) times a day. 420 mL 0 08/10/2021 Active pantoprazole (PROTONIX) 40 MG tablet Take 1 tablet (40 mg total) by mouth every morning on an empty stomach. 30 tablet 0 11/18/2021 Active ondansetron (ZOFRAN-ODT) 4 MG disintegrating tablet Take 1 tablet (4 mg total) by mouth every 8 (eight) hours as needed for nausea. 15 tablet 0 11/18/2021 Active Active Problems No known active problems Social History Tobacco Use Types Packs/Day Years Used Date Smoking Tobacco: Never Smokeless Tobacco: Never Alcohol Use Standard Drinks/Week Comments Yes 0 (1 standard drink = 0.6 oz pur e alcohol) several drinks 2-3 x per week Sex and Gender Information Value Date Recorded Sex Assigned at Female 12/09/2020 11:48 AM EDT Gender Identity Not on file Sexual Orientation Not on file Job Start Date Occupation Industry Not on file Not on file Not on file Last Filed Vital Signs Vital Sign Reading Time Taken Comments Blood Pressure 130/78 11/19/2021 1:05 AM EDT Pulse 98 11/19/2021 1:05 AM EDT Temperature 37.4 C (99.4 F) 11/19/2021 1:05 AM EDT Respiratory Rate 16 11/19/2021 1:05 AM EDT Oxygen Saturation 97% 11/19/2021 1:05 AM EDT Inhaled Oxygen Concentration - - Weight 56.7 kg (125 lb) 08/10/2021 12:59 PM EDT Height 160 cm (5' 3 ) 08/10/2021 12:59 PM EDT Body Mass Index 22.14 08/10/2021 12:59 PM EDT Plan of Treatment Not on file
--- OUTSIDE RECORDS SUMMARY | 2025-05-12 09:55 | XMS_ITS | Encounter Summary ---
Author Organization [facility] Address [address] [place] [address] Care Team Providers Care Control Systems Specialist Name Role Phone Nalini Samano APRN Primary Care Provider [phone] Encounter Details Date Type Department Care Team (Late st Contact Info) Description 02/03/2021 Scanned Document [facility] [address] [place] [id number] Isabel Healy MD [address] [place] [address] Social History Tobacco Use Types Packs/Day Years Used Date Smoking Tobacco: Never Smokeless Tobacco: Never Alcohol Use Standard Drinks/Week Comments Yes 0 (1 standard drink = 0.6 oz pur e alcohol) I drink occasionally Comments Unknown Sex and Gender Information Value Date Recorded Sex Assigned at Not on file Legal Sex Female 2:00 PM EDT Gender Identity Not on file Sexual Orientation Not on file COVID-19 Exposure Response Date Recorded In the last month, have you been in contact with someone who was confirmed or suspected to have Coronavirus / COVID-19? No / Unsure 01/19/2021 8:49 AM EDT documented as of this encounter Plan of Treatment Not on file documented as of this encounter Procedures Procedure Name Priority Date/Time Associated Diagnosis Comments PATHOLOGY REPORT 02/03/2021 11:4 5 AM EDT PATHOLOGY REPORT 02/03/2021 11:0 7 AM EDT documented in this encounter Results * PATHOLOGY REPORT (02/03/2021 11:45 AM EDT) us Isabel Healy MD PATHOLOGY/CYTOLOGY ORDERABLES Fi nal Result * PATHOLOGY REPORT (02/03/2021 11:07 AM EDT) us Isabel Healy MD PATHOLOGY/CYTOLOGY ORDERABLES Fi nal Result documented in this encounter Visit Diagnoses Not on filedocumented in this encounter Care Teams Control Systems Specialist Relationship Specialty Start Date End Date Nalini Samano, CAN SOLDERER [address] [place] [address] PCP - General documented as of this encounter
--- OUTSIDE RECORDS SUMMARY | 2025-05-12 09:55 | XMS_ITS | Clinical Summary ---
Author Organization [facility] Address [id number] [place] [id number] Care Team Providers Care Ad Setter Name Role Phone Unavailable Primary Care Provider Unavailabl e Medical History Medical History Date Comments Lyme disease DX:Lyme disease Peptic ulcer DX:Peptic ulcer Social History Tobacco Use Types Packs/Day Years Used Date Smoking Tobacco: Never Smokeless Tobacco: Never Alcohol Use Standard Drinks/Week Comments Yes 0 (1 standard drink = 0.6 oz pur e alcohol) Comments Unknown Sex and Gender Information Value Date Recorded Sex Assigned at Not on file Legal Sex Female 2:02 PM EST Gender Identity Not on file Sexual Orientation Not on file Plan of Treatment Health Maintenance Due Date Last Done Comments DTaP,Tdap,and Td Vaccines (1 - Tdap) 2014 Hepatitis B Vaccines (1 of 3 - 19+ 3-dose series) 2014 Cervical Cancer Screening: P ap Smear 2016 HPV Vaccines (1 - 3-dose SCD M series) 2022 Depression Screening 05/27/2024 COVID-19 Vaccine (1 - 2024-2 6 season) 2025 Influenza Vaccine (#1) 2025 RSV Immunization Adult Patie nts (1 - 1-dose 75+ series) 2070 HIB Vaccines Aged Out No longer eligi ble based on patient's age to complete this topic Hepatitis A Vaccines Aged Out No long er eligible based on patient's age to complete this topic IPV Vaccines Aged Out No longer eligi ble based on patient's age to complete this topic MMR Vaccines Aged Out No longer eligi ble based on patient's age to complete this topic Meningococcal ACWY Vaccine Aged Out N o longer eligible based on patient's age to complete this topic Meningococcal B Vaccine Aged Out No l onger eligible based on patient's age to complete this topic Pneumococcal Vaccine: Pediat rics (0 to 5 Years) and At-Risk Patients (6 to 49 Years) Aged Out No longer eligible b ased on patient's age to complete this topic RSV Immunization Patients Un dong 20 months Aged Out No longer eligible b ased on patient's age to complete this topic Varicella Vaccines Aged Out No longer eligible based on patient's age to complete this topic
--- OUTSIDE RECORDS SUMMARY | 2025-05-12 09:55 | XMS_ITS | Clinical Summary ---
Author Organization [facility] Address [address] [place] [address] Care Team Providers Care Jacker Feeder Name Role Phone Nalini Samano APRN Primary Care Provider [phone] Allergies Active Allergy Reactions Criticality Noted Date Comments Amoxicillin Hives Medium 12/09/2020 Penicillins Rash/Dermatitis Low 01/19/2021 Medications IRON-VITAMIN C PO Take by mouth. Active OMEprazole (PriLOSEC) 40 MG capsuleIndicatio ns:Gastroesophag eal reflux disease, unspecified whether esophagitis present,Nausea,U lcer of esophagus without bleeding Take 1 capsule (40 mg total) by mouth 2 (two) times a day before meals. 60 capsule 3 02/02/2021 Active Active Problems Problem Noted Date Diagnosed Date Nausea 01/19/2021 Assessment & Plan (01/19/2021 9:10 AM EDT): We will proceed with endoscopy Discussed importance of marijuana cessation thus it could be inducing cyclic vomiting syndrome. Disclaimer: Portions of this note were dictated by speech recognition. Minor errors in streets and buildings decorator may be present Gastroesophageal reflux disease 01/19/2021 Assessment & Plan (01/19/2021 9:10 AM EDT): Start omeprazole 40 mg once daily half an hour prior to breakfast Proceed with endoscopy for further assessment to rule out Hamilton's esophagus, H. pylori, celiac disease, gastric ulcer We discussed the minimal potential risk with intermediate designer PPI use. Based on AGA expert review the quality of evidence behind [facility] kidney disease, dementia, bone fractures, and infection with PPI use is low. The current data suggests that [facility] PPI use does not require routine screening or monitoring of bone density, kidney function, magnesium, or vitamin B levels. There is no clinical evidence to suggest routine intake of calcium, vitamin b12 or magnesium, with PPI use, beyond recommended dietary allowance. Patient was advised of lifestyle modifications to prevent symptoms: small frequent meals, avoid skipping meals, avoid laying supine immediately after eating avoid eating 2 hrs prior to bedtime and elevate head of bed at night Avoid/limit: NSAIDs, tobacco, alcohol, chocolate, peppermint, caffeine, greasy/spicy/acidic foods, citrus and tomato. The risks, benefits, timing, and alternatives to the procedure were carefully explained to the patient. The risks include but are not limited to perforation, bleeding, infection, respiratory compromise and . All questions were answered. Family History Medical History Relation Name Comments Alcohol abuse Brother Thad Multiple subst ance abuse Alcohol abuse Father Solomon Drinks often a nd can t handle it Cancer, other Father Solomon Testicular can cer Cancer, other Maternal Grandfather Hudson Moisés n s lymphoma Cancer, other Maternal Grandmother Karen Bone c ancer Alcohol abuse Maternal Uncle Jeremie of live r disease Cirrhosis Maternal Uncle Jeremie Alcohol abuse Mother Anika Drinks everyda y Mental illness Mother Anika Anxiety/depre ssion Autoimmune disease Sister Kimberly Psoriasis Relation Name Status Comments Brother Thad Carbajal Maternal Grandfather Hudson Maternal Grandmother Karen Maternal Uncle Jeremie Mother Anika Sister Kimberly Social History Tobacco Use Types Packs/Day Years [...] on file Sexual Orientation Not on file Last Filed Vital Signs Vital Sign Reading Time Taken Comments Blood Pressure 120/82 01/19/2021 8:56 AM EDT Pulse 113 01/13/2021 10:15 AM EDT Temperature 36.5 C (97.7 F) 01/19/2021 8:56 AM EDT Respiratory Rate - - Oxygen Saturation 98% 01/13/2021 10:15 AM EDT Inhaled Oxygen Concentration - - Weight 56.2 kg (124 lb) 01/19/2021 8:56 AM EDT Height 162.6 cm (5' 4 ) 01/19/2021 8:56 AM EDT Body Mass Index 21.28 01/19/2021 8:56 AM EDT Plan of Treatment Health Maintenance Due Date Last Done Comments Hepatitis C Virus Screening 1995 HIV Screening 2008 DTaP/Tdap/Td Vaccines (1 - Tdap) 2014 Hepatitis B Vaccines (1 of 3 - 19+ 3-dose series) 2014 Pap Smear (Ages 21-65) 2016 Influenza Vaccine 12/25/2024 COVID-19 Vaccine (3 - 2024-2 6 season) 2025 10/31/2020, 10/03/2020 HPV Vaccines (No Doses Required) Completed Pneumococcal Vaccine: Pediatric (0-5 Years) and At-Risk Patients (6 to 49 Years) Aged Out No longer eligible b ased on patient's age to complete this topic Insurance [facility] Care Teams Jacker Feeder Relationship Specialty Start Date End Date Nalini Samano APRN [address] [place] [address] PCP - General
--- OUTSIDE RECORDS SUMMARY | 2025-05-12 09:55 | XMS_ITS | Clinical Summary ---
Author Organization [facility] Address [address] [place] [id number] Phone Care Team Providers Care Jack Of All Trades Name Role Phone AlexandreCira DO Primary Care Provider Unavaila ble Immunizations Immunization Administration Dates Next Due DTaP 5 01/26/2000, 7,1995,09/01,1995 HPV, Quadrivalent 02/22/2012,10/23/2011,08/03/19 12 Hep B, ped/adol 1995,1995,1995 Hib (PRP-T) 08/12/1996, 6,1995,07/01 IPV 01/26/2000, 6,1995,07/01 MMR 01/26/2000,05/13/1996 Meningococcal Conj (Menactra) MCV4P 10/15/2012,0 01/22/2007 Td (adult) (Tenivac), 5 Lf t etanus toxoid, PF, adsorbed 01/22/2007 Varicella 02/07/2006 Social History Tobacco Use Types Packs/Day Years Used Date Smoking Tobacco: Never Comments:Never Smoker Comments Unknown Sex and Gender Information Value Date Recorded Sex Assigned at Not on file Legal Sex Female 6:36 PM EDT Gender Identity Not on file Sexual Orientation Not on file Last Filed Vital Signs Vital Sign Reading Time Taken Comments Blood Pressure - - Pulse 94 09/10/2016 12:39 PM EDT Temperature 36.9 C (98.5 F) 09/10/2016 12:39 PM EDT Respiratory Rate - - Oxygen Saturation - - Inhaled Oxygen Concentration - - Weight 53.3 kg (117 lb 8 oz) 09/10/2016 12:39 PM EDT Height 161.3 cm (5' 3.5 ) 09/10/2016 12:39 PM ED T Body Mass Index 20.49 09/10/2016 12:39 PM EDT Plan of Treatment Health Maintenance Due Date Last Done Comments Varicella Vaccines (2 of 2 - 2-dose childhood series) 05/02/2006 02/07/2006 DTaP,Tdap,and Td Vaccines (6 - Tdap) 01/23/2007 01/22/2007, 01/26/2000, 03/24/1997, Additional history exists Influenza Vaccines (#1) 2024 COVID-19 Vaccine ( season) 2025 Hepatitis B Vaccines Completed 1995, 1995, 1995 HIB Vaccines Completed 08/12/1996, 10/25, 1995, Additional history exists IPV Vaccines Completed 01/26/2000, 10/25, 1995, Additional history exists MMR Vaccines Completed 01/26/2000, 05/13/1996 HPV Vaccines Completed 02/22/2012, 09/25, 08/03/2011 Meningococcal Vaccine Completed 10/15/2012, 007 Hepatitis A Vaccines Aged Out No long er eligible based on patient's age to complete this topic Men B Vaccine Aged Out No longer elig ible based on patient's age to complete this topic Pneumococcal Vaccine Aged Out No long er eligible based on patient's age to complete this topic Care Teams Jack [employer] All Trades Relationship Specialty Start Date End Date Cira Schroeder DO PCP - General 10/02/17
--- OUTSIDE RECORDS SUMMARY | 2025-05-12 09:55 | XMS_ITS | Encounter Summary ---
Author Organization [facility] Address [address] [place] [address] Care Team Providers Care Logistics Planner Name Role Phone Nalini Samano APRN Primary Care Provider [phone] Encounter Details Date Type Department Care Team (Late st Contact Info) Description 08/11/2021 Scanned Document [facility] [address] [place] [id number] Marlney Brown APRN [address] [place] [address] Social History Tobacco Use Types Packs/Day Years [...] on filedocumented in this encounter Care Teams Logistics Planner Relationship Specialty Start Date End Date Nalini Samano APRN [address] [place] [address] PCP - General documented as of this encounter
[2025-05-12] MEDS: Lactated Ringers 1,000 ML 999 ML IV ×3 (10:25→13:23)
[2025-05-12 10:26] LABS: MANUAL DIFF FLAG NO
[2025-05-12 10:28] LABS: Hematocrit 42.9 % (37.0-47.0); Hemoglobin 14.9 g/dl (12.0-16.0); Imm Gran Abs Auto 0.06 X10*3/uL (0.00-0.03); Imm Gran Pct Auto 0.5 % (0.0-0.4); Lymphocytes Absolute Auto 0.4 X10*3/uL (1.2-4.9); Mean Corpuscular HGB Conc 34.7 g/dl (31.0-35.0); Mean Corpuscular Hemoglobin 32.9 pg (27.0-33.0); Mean Corpuscular Volume 94.7 fL (80.0-98.0); NRBC Abs Auto 0.000 X10*3/uL (0.0-0.012); NRBC Pct Auto 0.0 /100WBC (0.0-0.2); Platelet Count 227 X10*3/uL (160-400); Red Blood Count 4.53 X10*6/uL (4.20-5.50); White Blood Count 12.0 X10*3/uL (4.8-10.8)
[2025-05-12 10:55] LABS: Albumin Level 6.2 g/dL (3.5-5.0); Alkaline Phosphatase 116 U/L (39-117); Anion Gap 28 (12-20); Aspartate Amino Transferase 160 U/L (5-31); Blood Urea Nitrogen 16 mg/dL (9-16); Calcium 10.5 mg/dL (8.4-10.2); Carbon Dioxide 13 mmol/L (22-29); Chloride 100 mmol/L (96-108); Creatinine Clr Calc Pharmacy 61.8; Estimated Glomerular Filt Rate 58; Potassium 3.7 mmol/L (3.3-5.1); Sodium 137 mmol/L (135-145); Total Protein 9.5 g/dL (6.5-8.0)
[2025-05-12 11:05] LABS: Alanine Aminotransferase 132 U/L (0-31)
[2025-05-12 11:28] LABS: VBG HCO3 11 mmol/L (22-26); VBG O2 % Saturation 99.0 %
[2025-05-12 11:30] LABS: Venous Blood Gas Refer to POC result
[2025-05-12 12:39] VITALS: BP 128/85; PULSE 119; RESP 18; TEMP 36.6; O2SAT 99
[2025-05-12 13:35] LABS: Appearance Urine Cloudy; Glucose Urine UA Negative (Negative); PH 6.0 (5.0-9.0); Specific Gravity - Urine >= 1.030 (1.005-1.025); UMIC TRIGGER UACC YES
[2025-05-12 13:46] LABS: Cannabinoid Screen Urine POSITIVE (Not Detect)
[2025-05-12] MEDS: Potassium Chloride ER 20 MEQ TAB.ER.PRT 40 MEQ PO (15:18)
[2025-05-12 15:46] VITALS: BP 162/106; PULSE 106; RESP 18; TEMP 37.5; O2SAT 100
[2025-05-12 15:47] VITALS: BP 157/108
[2025-05-12 17:03] LABS: Alanine Aminotransferase 83 U/L (0-31); Albumin Level 4.6 g/dL (3.5-5.0); Alkaline Phosphatase 79 U/L (39-117); Anion Gap 19 (12-20); Aspartate Amino Transferase 107 U/L (5-31); Blood Urea Nitrogen 13 mg/dL (9-16); Calcium 9.2 mg/dL (8.4-10.2); Carbon Dioxide 19 mmol/L (22-29); Chloride 102 mmol/L (96-108); Creatinine Clr Calc Pharmacy 101.5; Estimated Glomerular Filt Rate > 60; Potassium 3.6 mmol/L (3.3-5.1); Sodium 136 mmol/L (135-145); Total Protein 6.7 g/dL (6.5-8.0)
[2025-05-12] MEDS: Magnesium Hydrox/Alum Hydrox 30 ML ORAL.SUSP PO (17:17)
[2025-05-12] MEDS: Lidocaine HCl Viscous 2 % 15 ML SOLUTION MUCOUS MEM (17:17)
[2025-05-12] MEDS: PHENobarb/Hyoscy/Atropine/Scop 10 ML ELIXIR PO (17:17)
[2025-05-12 18:05] VITALS: BP 152/94; PULSE 110; RESP 18; TEMP 36.8; O2SAT 99
[2025-05-12 18:25] VITALS: BP 152/94; PULSE 110; RESP 18; TEMP 36.8; O2SAT 99
== END 2025-05-12 18:51 | disposition home or self-care (01) ==
PROVIDERS: Physician Assistant; Emergency Provider Emergency Medicine Emergency Medical Services
DX: E86.0 Dehydration (principal); R11.2 Nausea with vomiting, unspecified; R53.1 Weakness; R00.0 Tachycardia, unspecified; R10.23 Pelvic and perineal pain bilateral; Z91.199 Patient's noncompliance with other medical treatment and regimen due to unspecified reason; Z51.81 Encounter for therapeutic drug level monitoring; Z79.899 Other long term (current) drug therapy
CPT/HCPCS: 36415; 80048; 80053; 80076; 80307; 81001; 82803; 83605; 84702; 85025; 96361; 96374; 96376; 99284; J2405; J7120